=== PATIENT | female | born 1935 | race Caucasian/White ===

== ENCOUNTER 2018-08-01 16:48 | Inpatient (IN) | payer MEDICARE, OTHER ==
[~2018-08-01] VITALS: Ht 170.2 cm; Wt 65.4 kg
[~2018-08-01 16:48] MED LIST: COSOPT PF EYE1 EACH OP; LOSARTAN POTASS25 MG PO
--- OUTSIDE RECORDS SUMMARY | 2018-08-01 16:53 | XMS REPORT | CCD ---
Author Author Auto Generated Organization [facility] Address Unknown Phone Unavailable Care Team Providers Care Collar Worker Name Role Phone Hung Child Jr CP Allergies, Adverse Reactions, Alerts Substance Reaction Status NKDA Active Problem List Condition Effective Dates Status Cataract Resolved Hiatal hernia Resolved Osteoarthritis Resolved Peptic ulcer disease Resolved Medications Medication Instructions Start Date End Date Status Zofran ODT 4 mg, 1 tab, Route: PO, Drug form: 04/09/2013 04/16/2013 Discontinued TABDIS, Q8H, Dosing Weight 81.8, kg, PRN Nausea, Start date: 04/09/13 11:48:00, Duration: 30 day, Stop date: 05/09/13 11:47:00 Cipro 500 mg, 1 tab, Route: PO, Drug 04/05/2013 04/10/2013 Discontinued form: TAB, [id number], Dosing Weight 81.8, kg, Start date: 04/05/13 2:00:00, Duration: 30 day, Stop date: 05/04/13 14:00:00 Vitamin D3 1000 intl 1,000 IntlUnit, 1 tab, Route: PO, 04/09/2013 04/16/2013 Discontinued units oral tablet Drug form: TAB, Daily, Dosing Weight 81.8, kg, Start date: 04/09/13 9:00:00, Duration: 30 day, Stop date: 05/08/13 9:00:00 pantoprazole 40 mg 40 mg, 1 tab, PO, Before Dinner, 04/16/2013 Ordered oral enteric coated tab, Substitution Allowed, ECTAB tablet ferrous sulfate 325 325 mg, 1 tab, PO, BID-Meals, 04/16/2013 Ordered mg oral enteric tab, Substitution Allowed, ECTAB coated tablet enoxaparin 40 mg/0.4 40 mg, 0.4 mL, SUB-Q, [id number], 15 04/16/2013 Ordered mL subcutaneous mL, Substitution Allowed, INJ solution docusate sodium 100 100 mg, 1 cap, PO, BID, 20 cap, 04/16/2013 Ordered mg oral capsule Substitution Allowed, CAP Vitamin D3 1000 intl 1,000 IntlUnit, 1 cap, PO, Daily, 04/16/2013 05/06/2013 Ordered units oral capsule 20 cap, Substitution Allowed, CAP bisacodyl 10 mg 10 mg, 1 supp, VA, Daily, PRN, 20 04/16/2013 Ordered rectal suppository supp, Constipation, Substitution Allowed, SUPP acetaminophen 325 mg 650 mg, 2 tab, PO, Q4H, PRN, 20 04/16/2013 Ordered oral tablet tab, Pain Score 1-3, Substitution Allowed, TAB acetaminophen-hydroc 1 tab, PO, Q4H, PRN, 20 tab, Pain, 04/16/2013 Ordered odone 325 mg-5 mg Substitution Allowed, Maintenance, oral tablet TAB latanoprost 1 drp, BOTH EYES, Bedtime, 20 mL, 04/16/2013 Ordered ophthalmic 0.005% Substitute Allowed, SOLN solution dorzolamide-timolol 1 drp, BOTH EYES, BID, 20 mL, 04/16/2013 Ordered ophthalmic 2%-0.5% Substitute Allowed, SOLN solution lactulose 20 gm, 30 ml, Route: PO, Drug Form: 04/06/2013 04/16/2013 Discontinued SYRP, Dosing Weight 81.8, kg, Q8H, PRN Constipation, Start date: 04/06/13 13:17:00, Duration: 30 day, Stop date: 05/06/13 13:16:00 bisacodyl 10 mg, 1 supp, Route: VA, Drug 04/06/2013 04/16/2013 Discontinued form: SUPP, Daily, Dosing Weight 81.8, kg, PRN Constipation, Start date: 04/06/13 13:17:00, Duration: 30 day, Stop date: 05/06/13 13:16:00 acetaminophen-hydroc 1 tab, Route: PO, Drug Form: TAB, 04/04/2013 04/08/2013 Discontinued odone 325 mg-5 mg Q6H, PRN Pain, Start date: 04/04/13 oral tablet 12:50:00, Duration: 30 day, Stop date: 05/04/13 12:49:00 Protonix 40 mg, 1 tab, Route: PO, Drug form: 04/04/2013 04/16/2013 Discontinued ECTAB, Before Dinner, Start date: 04/04/13 16:30:00, Duration: 30 day, Stop date: 05/03/13 16:30:00 acetaminophen 650 mg, 2 tab, Route: PO, Drug 04/04/2013 04/16/2013 Discontinued form: TAB, Q4H, Dosing Weight 81.8, kg, PRN Pain Score 1-3, Start date: 04/04/13 11:41:00, Duration: 30 day, Stop date: 05/04/13 11:40:00 Saline Flush 0.9% 3 mL, Route: IVP, Drug Form: INJ, 04/04/2013 04/16/2013 Discontinued Dosing Weight 81.8, kg, Q8H, PRN Line Flush, Start date: 04/04/13 11:41:00, Duration: 30 day, Stop date: 05/04/13 11:40:00, Administer at least once every 8 hours Administer at least once every 8 hours [place] 5/325 oral 2 tab, Route: PO, Drug Form: TAB, 04/05/2013 04/08/2013 Discontinued tablet Dosing Weight 81.8, kg, Q6H, PRN Pain, Start date: 04/05/13 14:39:00, Duration: 30 day, Stop date: 05/05/13 14:38:00 Xalatan 1 drp, Route: BOTH EYES, Bedtime, 04/04/2013 04/16/2013 Discontinued Drug form: SOLN, Start date: 04/04/13 21:00:00, Duration: 30 day, Stop date: 05/03/13 21:00:00 ferrous sulfate 325 mg, 1 tab, Route: PO, Drug 04/04/2013 04/16/2013 Discontinued form: ECTAB, BID-Meals, Dosing Weight 81.8, kg, Start date: 04/04/13 17:00:00, Duration: 30 day, Stop date: 05/04/13 8:00:00 Lovenox 40 mg, 0.4 mL, Route: SUB-Q, Drug 04/05/2013 04/16/2013 Discontinued form: INJ, [id number], Dosing Weight 81.818, kg, Start date: 04/05/13 6:00:00, Duration: 30 day, Stop date: 05/04/13 6:00:00 Cosopt 1 drp, Route: BOTH EYES, BID, Drug 04/04/2013 04/16/2013 Discontinued form: SOLN, Start date: 04/04/13 21:00:00, Duration: 30 day, Stop date: 05/04/13 9:00:00 docusate sodium 100 100 mg, 1 cap, Route: PO, Drug 04/04/2013 04/16/2013 Discontinued mg oral capsule form: CAP, BID, Dosing Weight 81.8, kg, Start date: 04/04/13 17:00:00, Duration: 30 day, Stop date: 05/04/13 9:00:00 acetaminophen-hydroc 1 tab, Route: PO, Drug Form: TAB, 04/08/2013 04/16/2013 Discontinued odone 325 mg-5 mg Q4H, PRN Pain, Start date: 04/08/13 oral tablet 12:26:00, Duration: 30 day, Stop date: 05/08/13 12:25:00 Cipro 400 mg, 200 mL, Route: IVPB, Drug 04/04/2013 04/04/2013 Discontinued form: INJ, [id number], Dosing Weight 81.8, kg, Start date: 04/04/13 13:00:00, Duration: 30 day, Stop date: 05/04/13 1:00:00 [place] 5/325 oral 2 tab, Route: PO, Drug Form: TAB, 04/08/2013 04/14/2013 Discontinued tablet Dosing Weight 81.8, kg, Q4H, PRN Pain, Start date: 04/08/13 12:26:00, Duration: 30 day, Stop date: 05/08/13 12:25:00 Vital Signs Most recent to oldest [Reference Range]: 1 2 3 Height 172.7 cm (04/04/2013 12:28:00) 172.7 cm (04/04/2013 11:41:00) Temperature Oral [96.4-99.1 DegF] 97.5 DegF (04/16/2013 09:10:00) 98 DegF (04/15/2013 20:16:00) 97.9 DegF (04/15/2013 16:08:00) Systolic Blood Pressure [90-140 mmHg] 162 mmHg *HI* (04/16/2013 09:10:00) 129 mmHg (04/15/2013 20:16:00) 129 mmHg (04/15/2013 16:08:00) Diastolic Blood Pressure [60-90 mmHg] 88 mmHg (04/16/2013 09:10:00) 81 mmHg (04/15/2013 20:16:00) 76 mmHg (04/15/2013 16:08:00) Respiratory Rate [14-20 BRMIN] 16 BRMIN (04/16/2013 11:07:00) 20 BRMIN (04/15/2013 20:16:00) 18 BRMIN (04/15/2013 16:08:00) Peripheral Pulse Rate [60-100 bpm] 97 bpm (04/16/2013 09:10:00) 85 bpm (04/15/2013 20:16:00) 90 bpm (04/15/2013 16:08:00) Weight 81.8 kg (04/04/2013 12:28:00) 81.8 kg (04/04/2013 11:41:00) Results CHEMISTRY Most recent to oldest [Reference Range]: 1 2 3 Sodium Lvl [135-145 mEq/L] 144 mEq/L (04/16/2013 04:59:00) 142 mEq/L (04/11/2013 06:55:00) 143 mEq/L (04/05/2013 03:00:00) Potassium Lvl [3.5-5.1 mEq/L] 4.2 mEq/L (04/16/2013 04:59:00) 3.8 mEq/L (04/11/2013 06:55:00) 3.7 mEq/L (04/05/2013 03:00:00) Chloride Lvl [95-109 mEq/L] 109 mEq/L (04/16/2013 04:59:00) 106 mEq/L (04/11/2013 06:55:00) 107 mEq/L (04/05/2013 03:00:00) CO2 [24-32 mEq/L] 24 mEq/L (04/16/2013 04:59:00) 23 mEq/L *LOW* (04/11/2013 06:55:00) 25 mEq/L (04/05/2013 03:00:00) AGAP [10.0-20.0 mEq/L] 15.2 mEq/L (04/16/2013 04:59:00) 16.8 mEq/L (04/11/2013 06:55:00) 14.7 mEq/L (04/05/2013 03:00:00) Creatinine Lvl [0.5-1.4 mg/dL] 0.8 mg/dL (04/16/2013 04:59:00) 0.8 mg/dL (04/11/2013 06:55:00) 0.8 mg/dL (04/05/2013 03:00:00) eGFR 71 mL/min/1.73m2 1 *NA* (04/16/2013 04:59:00) 71 mL/min/1.73m2 2 *NA* (04/11/2013 06:55:00) 71 mL/min/1.73m2 3 *NA* (04/05/2013 03:00:00) BUN [7-22 mg/dL] 14 mg/dL (04/16/2013 04:59:00) 16 mg/dL (04/11/2013 06:55:00) 16 mg/dL (04/05/2013 03:00:00) B/C Ratio [6-25] 20 (04/05/2013 03:00:00) Glucose Lvl [70-99 mg/dL] 100 mg/dL 4 *HI* (04/16/2013 04:59:00) 100 mg/dL 5 *HI* (04/11/2013 06:55:00) 105 mg/dL 6 *HI* (04/05/2013 03:00:00) Total Protein [6.4-8.4 g/dL] 5.7 g/dL *LOW* (04/05/2013 03:00:00) Albumin Lvl [3.5-5.0 g/dL] 2.6 g/dL *LOW* (04/05/2013 03:00:00) Globulin [2.0-4.0 g/dL] 3.1 g/dL (04/05/2013 03:00:00) A/G Ratio [0.7-1.6] 0.8 (04/05/2013 03:00:00) Calcium Lvl [8.5-10.5 mg/dL] 8.2 mg/dL *LOW* (04/16/2013 04:59:00) 8.0 mg/dL *LOW* (04/11/2013 06:55:00) 8.2 mg/dL *LOW* (04/05/2013 03:00:00) Phosphorus [2.5-4.5 mg/dL] 2.9 mg/dL (04/05/2013 03:00:00) Magnesium Lvl [1.8-2.4 mg/dL] 2.0 mg/dL (04/05/2013 03:00:00) ALT [0-65 unit/L] 21 unit/L (04/05/2013 03:00:00) AST [0-37 unit/L] 29 unit/L (04/05/2013 03:00:00) Alk Phos [39-136 unit/L] 82 unit/L (04/05/2013 03:00:00) Bili Total [0.2-1.3 mg/dL] 0.6 mg/dL (04/05/2013 03:00:00) Vitamin D, 25-OH, Total [30-100 ng/mL] 27 ng/mL 7 *LOW* (04/05/2013 03:00:00) Ca Ion WB [1.05-1.25 mMol/L] 1.07 mMol/L (04/05/2013 03:00:00) Ca Norm WB [1.05-1.25 mMol/L] 1.08 mMol/L (04/05/2013 03:00:00) 1Result Comment: The eGFR is calculated using the CKD-EPI formula. In most young, healthy individuals the eGFR will be >90 mL/min/1.73m2. The eGFR declines with age. An eGFR of 60-89 may be normal in some populations, particularly the elderly, for whom the CKD-EPI formula has not been extensively validated. Use of the eGFR is not recommended in the following populations: Individuals with unstable creatinine concentrations, including patients and those with serious co-morbid conditions. Patients with extremes in muscle mass or diet. The data above are obtained from the National Kidney Disease Education Program ( NKDEP) which additionally recommends that when the eGFR is used in patients with extremes of body mass index for purposes of drug dosing, the eGFR should be mul tiplied by the estimated BMI. 2Result Comment: The eGFR is calculated using the CKD-EPI formula. In most young, healthy individuals the eGFR will be >90 mL/min/1.73m2. The eGFR declines with age. An eGFR of 60-89 may be normal in some populations, particularly the elderly, for whom the CKD-EPI formula has not been extensively validated. Use of the eGFR is not recommended in the following populations: Individuals with unstable creatinine concentrations, including patients and those with serious co-morbid conditions. Patients with extremes in muscle mass or diet. The data above are obtained from the National Kidney Disease Education Program ( NKDEP) which additionally recommends that when the eGFR is used in patients with extremes of body mass index for purposes of drug dosing, the eGFR should be mul tiplied by the estimated BMI. 3Result Comment: The eGFR is calculated using the CKD-EPI formula. In most young, healthy individuals the eGFR will be >90 mL/min/1.73m2. The eGFR declines with age. An eGFR of 60-89 may be normal in some populations, particularly the elderly, for whom the CKD-EPI formula has not been extensively validated. Use of the eGFR is not recommended in the following populations: Individuals with unstable creatinine concentrations, including patients and those with serious co-morbid conditions. Patients with extremes in muscle mass or diet. The data above are obtained from the National Kidney Disease Education Program ( NKDEP) which additionally recommends that when the eGFR is used in patients with extremes of body mass index for purposes of drug dosing, the eGFR should be mul tiplied by the estimated BMI. 4Interpretive Data: Adult reference range values reflect the clinical guidelines of the [place] [employer]. 5Interpretive Data: Adult reference range values reflect the clinical guidelines of the [place] [employer]. 6Interpretive Data: Adult reference range values reflect the clinical guidelines of the [place] [employer]. 7Interpretive Data: Reference range is based on recommendations in the Endocrine Society Clinical Practice Guideline (J Clin Endocrinol Metab 2011;96:7959-1190) HEMATOLOGY Most recent to oldest [Reference Range]: 1 2 3 WBC [3.7-10.4 K/CMM] 5.3 K/CMM (04/16/2013 04:59:00) 7.2 K/CMM (04/11/2013 06:55:00) 6.4 K/CMM (04/05/2013 03:00:00) RBC [4.20-5.40 M/CMM] 3.29 M/CMM *LOW* (04/16/2013 04:59:00) 3.22 M/CMM *LOW* (04/11/2013 06:55:00) 3.20 M/CMM *LOW* (04/05/2013 03:00:00) Hgb [12.0-16.0 g/dL] 9.5 g/dL *LOW* (04/16/2013 04:59:00) 9.5 g/dL *LOW* (04/11/2013 06:55:00) 9.5 g/dL *LOW* (04/05/2013 03:00:00) Hct [36.0-48.0 %] 29.7 % *LOW* (04/16/2013 04:59:00) 29.1 % *LOW* (04/11/2013 06:55:00) 28.7 % *LOW* (04/05/2013 03:00:00) MCV [81.0-99.0 fL] 90.3 fL (04/16/2013 04:59:00) 90.6 fL (04/11/2013 06:55:00) 89.9 fL (04/05/2013 03:00:00) MCH [27.0-31.0 pg] 28.9 pg (04/16/2013 04:59:00) 29.6 pg (04/11/2013 06:55:00) 29.6 pg (04/05/2013 03:00:00) MCHC [32.0-36.0 g/dL] 32.0 g/dL (04/16/2013 04:59:00) 32.6 g/dL (04/11/2013 06:55:00) 32.9 g/dL (04/05/2013 03:00:00) RDW [11.5-14.5 %] 17.1 % *HI* (04/16/2013 04:59:00) 15.3 % *HI* (04/11/2013 06:55:00) 14.6 % *HI* (04/05/2013 03:00:00) Platelet [133-450 K/CMM] 483 K/CMM *HI* (04/16/2013 04:59:00) 407 K/CMM (04/11/2013 06:55:00) 246 K/CMM (04/05/2013 03:00:00) MPV [7.4-10.4 fL] 7.3 fL *LOW* (04/16/2013 04:59:00) 7.5 fL (04/11/2013 06:55:00) 8.2 fL (04/05/2013 03:00:00) Segs [45.0-75.0 %] 61.0 % (04/16/2013 04:59:00) 73.4 % (04/11/2013 06:55:00) 61.2 % (04/05/2013 03:00:00) Lymphocytes [20.0-40.0 %] 22.5 % (04/16/2013 04:59:00) 12.4 % *LOW* (04/11/2013 06:55:00) 21.3 % (04/05/2013 03:00:00) Monocytes [2.0-12.0 %] 13.0 % *HI* (04/16/2013 04:59:00) 12.0 % (04/11/2013 06:55:00) 14.8 % *HI* (04/05/2013 03:00:00) Eosinophils [0.0-4.0 %] 2.4 % (04/16/2013 04:59:00) 1.7 % (04/11/2013 06:55:00) 2.1 % (04/05/2013 03:00:00) Basophils [0.0-1.0 %] 1.1 % *HI* (04/16/2013 04:59:00) 0.5 % (04/11/2013 06:55:00) 0.6 % (04/05/2013 03:00:00) Segs-Bands # [1.5-8.1 K/CMM] 3.2 K/CMM (04/16/2013 04:59:00) 5.3 K/CMM (04/11/2013 06:55:00) 3.9 K/CMM (04/05/2013 03:00:00) Lymphocytes # [1.0-5.5 K/CMM] 1.2 K/CMM (04/16/2013 04:59:00) 0.9 K/CMM *LOW* (04/11/2013 06:55:00) 1.4 K/CMM (04/05/2013 03:00:00) Monocytes # [0.0-0.8 K/CMM] 0.7 K/CMM (04/16/2013 04:59:00) 0.9 K/CMM *HI* (04/11/2013 06:55:00) 0.9 K/CMM *HI* (04/05/2013 03:00:00) Eosinophils # [0.0-0.5 K/CMM] 0.1 K/CMM (04/16/2013 04:59:00) 0.1 K/CMM (04/11/2013 06:55:00) 0.1 K/CMM (04/05/2013 03:00:00) Basophils # [0.0-0.2 K/CMM] 0.1 K/CMM (04/16/2013 04:59:00) 0.0 K/CMM (04/11/2013 06:55:00) 0.0 K/CMM (04/05/2013 03:00:00) PT [12.0-14.7 seconds] 14.1 seconds (04/05/2013 03:00:00) INR [0.85-1.17] 1.07 8 (04/05/2013 03:00:00) PTT [22.9-35.8 seconds] 29.0 seconds 9 (04/05/2013 03:00:00) 8Interpretive Data: RECOMMENDED RANGES FOR PROTIME INR: 2.0-3.0 for most medical and surgical thromboembolic states. 2.5-3.5 for artificial heart valves and recurrent embolism. INR SHOULD BE USED ONLY FOR PATIENTS ON STABLE ANTICOAGULANT THERAPY. 9Interpretive Data: Heparin Therapeutic Range: 57 - 92 Seconds IMMUNOLOGY Most recent to oldest [Reference Range]: 1 2 3 Prealbumin [18.0-45.0 mg/dL] 8.9 mg/dL *LOW* (04/05/2013 03:00:00) CRP, High Sensitivity 128.0 mg/L 10 *NA* (04/05/2013 03:00:00) 10Interpretive Data: Low Risk: <1.0 mg/L Average Risk: 1.0 - 3.0 mg/L High Risk: >3.0 mg/L Inflammation: >10.0 mg/L
--- OUTSIDE RECORDS SUMMARY | 2018-08-01 16:53 | XMS REPORT | Continuity of Care Document ---
Author Author [facility] Interface Address Unknown Phone Unavailable Problems Problem Status Onset Date Classification Date Reported Comments Source BILATERIAL CELLULITIS OF LOWER LEG Active 06/08/2018 [facility] ABD PAIN Active 06/08/2018 [facility] UNK Active 11/15/2016 [facility] Discharge Diagnosis: Closed Colles' fracture 11/13/2016 11/16/2016 [facility] Discharge Diagnosis: Accidental fall 11/13/2016 11/16/2016 [facility] FALL- LEFT WRIST PAIN Active 11/13/2016 [facility] PE Active 04/29/2013 [facility] SYNCOPE Active 04/29/2013 [facility] FELL/LEFT KNEE INJURY Active 03/31/2013 [facility] LEFT HUMERUS AND HIP FX Active 03/31/2013 [facility] Hiatal hernia Resolved Problem 11/25/2016 [facility] Hypertension Resolved Problem 11/25/2016 [facility] MRSA<sup>1</sup> Active Problem 11/16/2016 Problem added by Discern Expert. 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 [facility] Cataract Resolved Problem 05/07/2013 [facility] Hiatal hernia Resolved Problem 05/07/2013 [facility] Osteoarthritis Resolved Problem 05/07/2013 [facility] Peptic ulcer disease Resolved Problem 05/07/2013 [facility] MRSA<sup>1</sup> Active Problem 05/07/2013 1Problem added by Discern Expert. [facility] FX HUMERUS NOS-CLOSED Active [facility] PULM EMBOL/INFARCT NEC Active [facility] PAIN IN LEFT WRIST Active [facility] COLLES' FRACTURE OF LEFT RADIUS, INIT FO Active [facility] CONTUSION OF LEFT WRIST, INITIAL ENCOUNT Active [facility] CELLULITIS OF LEFT LOWER LIMB Active [facility] Medications Medication Details Route Status Patient Instructions Ordering Provider Order Date Source Ondansetron 4 mg, Route: IVP, ONCE, Dosing Weight 68.182, kg, PRN Nausea & Vomiting, Start date: 11/22/16 8:37:00 CDT Inactive 11/22/2016 [facility] Promethazine 6.25 mg, Route: IVPB, ONCE, Dosing Weight 68.182, kg, PRN Nausea & Vomiting, Start date: 11/22/16 8:37:00 CDT Inactive 11/22/2016 [facility] Albuterol 0.83 MG/ML Inhalant Solution 2.49 mg, Route: NEB, Q20Min, Dosing Weight 68.182, kg, PRN Wheezing, Priority: STAT, Start date: 11/22/16 8:37:00 CDT, Duration: 30 day, Stop date: 12/22/16 8:36:00 CDT Inactive 11/22/2016 [facility] Diphenhydramine 12.5 mg, Route: IVP, Drug form: INJ, Q6H, Dosing Weight 68.182, kg, PRN Itching, Start date: 11/22/16 8:37:00 CDT, Duration: 30 day, Stop date: 12/22/16 8:36:00 CDT Inactive 11/22/2016 [facility] Naloxone 0.4 mg, Route: IVP, Q2MIN, Dosing Weight 68.182, kg, PRN Narcotic Reversal, Start date: 11/22/16 8:37:00 CDT, Duration: 8 doses or times, Stop date: Limited # of times Inactive 11/22/2016 [facility] Meperidine 12.5 mg, Route: IVP, Q30Min, Dosing Weight 68.182, kg, PRN Other -See Comment, For shivering, Start date: 11/22/16 8:37:00 CDT, Duration: 2 doses or times, Stop date: Limited # of times Inactive 11/22/2016 [facility] Flumazenil 0.2 mg, Route: IVP, PRN, Dosing Weight 68.182, kg, PRN Benzodiazepine Reversal, Initial dose, Start date: 11/22/16 8:37:00 CDT, Duration: 30 day, Stop date: 12/22/16 8:36:00 CDT Inactive 11/22/2016 [facility] Hydromorphone 0.5 mg, Route: IVP, Q5Min, Dosing Weight 68.182, kg, PRN Pain Score 7-10, Start date: 11/22/16 8:37:00 CDT, Duration: 4 doses or times, Stop date: Limited # of times Inactive 11/22/2016 [facility] Calcium Chloride 0.0014 MEQ/ML / Potassium Chloride 0.004 MEQ/ML / Sodium Chloride 0.103 MEQ/ML / Sodium Lactate 0.028 MEQ/ML Injectable Solution 1,000 mL, Rate: 125 ml/hr, Infuse over: 8 hr, Route: IV, Dosing Weight 68.182 kg, Total Volume: 1,000, Start date: 11/22/16 8:37:00 CDT, Duration: 30 day, Stop date: 12/22/16 8:36:00 CDT Inactive 11/22/2016 [facility] Hydralazine 10 mg, Route: IVP, Q20Min, Dosing Weight 68.182, kg, PRN Elevated BP, Start date: 11/22/16 8:37:00 CDT, Duration: 2 doses or times, Stop date: Limited # of times Inactive 11/22/2016 [facility] esmolol 10 mg, Route: IVP, Q5Min, Dosing Weight 68.182, kg, PRN Other -See Comment, Start date: 11/22/16 8:37:00 CDT, Duration: 5 doses or times, Stop date: Limited # of times Inactive 11/22/2016 [facility] Labetalol 10 mg, Route: IVP, Q5Min, Dosing Weight 68.182, kg, PRN Elevated BP, Start date: 11/22/16 8:37:00 CDT, Duration: 5 doses or times, Stop date: Limited # of times Inactive 11/22/2016 [facility] Acetaminophen 1,000 mg, Route: PO, Drug form: TAB, ONCE, Dosing Weight 68.182, kg, PRN Pain Score 1-3, Start date: 11/22/16 8:37:00 CDT, Duration: 1 doses or times, Stop date: Limited # of times Inactive 11/22/2016 [facility] Oxycodone 5 mg, Route: PO, Drug form: TAB, Q4H, Dosing Weight 68.182, kg, PRN Pain Score 4-6, Start date: 11/22/16 8:37:00 CDT, Duration: 30 day, Stop date: 12/22/16 8:36:00 CDT Inactive 11/22/2016 [facility] Tramadol 50 mg, 1 tab, Route: PO, Drug form: TAB, ONCE, Dosing Weight 68.182, kg, Start date: 11/22/16 8:22:00 CDT, Stop date: 11/22/16 8:22:00 CDT, ..Notes: Not to exceed 400mg/day. (Same As: Ultram) Inactive 11/22/2016 [facility] Acetaminophen 650 mg, Route: PO, Drug form: TAB, Q4H, Dosing Weight 68.182, kg, PRN Pain 1-3/Temp > 100.4 F, Start date: 11/22/16 8:19:00 CDT, Duration: 30 day, Stop date: 12/22/16 8:18:00 CDT Inactive 11/22/2016 [facility] Acetaminophen 325 MG / Hydrocodone Bitartrate 10 MG Oral Tablet 1 tab, Route: PO, Dosing Weight 68.182, kg, Q4H, PRN Pain Score 4-6, Start date: 11/22/16 8:19:00 CDT, Duration: 30 day, Stop date: 12/22/16 8:18:00 CDT Inactive 11/22/2016 [facility] Hydromorphone 0.5 mg, Route: IVP, Q3H, Dosing Weight 68.182, kg, PRN Pain Score 4-6, Start date: 11/22/16 8:19:00 CDT, Duration: 30 day, Stop date: 12/22/16 8:18:00 CDT Inactive 11/22/2016 [facility] Tramadol 50 mg, Route: PO, Drug form: TAB, Q6H, Dosing Weight 68.182, kg, PRN Pain Score 1-3, Start date: 11/22/16 8:19:00 CDT, Duration: 30 day, Stop date: 12/22/16 8:18:00 CDT Inactive 11/22/2016 [facility] fentaNYL (ANES) Route: IV, Drug form: INJ, ONCE, Stop date: 11/22/16 8:19:00 CDT Inactive 11/22/2016 [facility] Albuterol 0.833 MG/ML / Ipratropium [place] 0.167 MG/ML Inhalant Solution 3 mL, Route: NEB, Dosing Weight 68.182, kg, ONCE, STAT, Start date: 11/22/16 8:15:00 CDT, Stop date: 11/22/16 8:15:00 CDT Inactive 11/22/2016 [facility] Calcium Chloride 0.0014 MEQ/ML / Potassium Chloride 0.004 MEQ/ML / Sodium Chloride 0.103 MEQ/ML / Sodium Lactate 0.028 MEQ/ML Injectable Solution 1,000 mL, Rate: 25 ml/hr, Infuse over: 40 hr, Route: IV, Dosing Weight 68.182 kg, Total Volume: 1,000, Start date: 11/22/16 8:15:00 CDT, Duration: 30 day, Stop date: 12/22/16 8:14:00 CDT Inactive 11/22/2016 [facility] acetaminophen (ANES) Route: IV, Drug form: INJ, ONCE, Stop date: 11/22/16 8:12:00 CDT Inactive 11/22/2016 [facility] ondansetron (ANES) Route: IV, Drug form: INJ, ONCE, Stop date: 11/22/16 8:07:00 CDT Inactive 11/22/2016 [facility] ceFAZolin (ANES) Route: IV, Drug form: INJ, ONCE, Stop date: 11/22/16 8:07:00 CDT Inactive 11/22/2016 [facility] lidocaine (ANES) Route: IV, Drug form: INJ, ONCE, Stop date: 11/22/16 8:07:00 CDT Inactive 11/22/2016 [facility] propofol (ANES) Route: IV, Drug form: INJ, ONCE, Stop date: 11/22/16 8:07:00 CDT Inactive 11/22/2016 [facility] hydromorphone (ANES) Route: IV, Drug form: INJ, ONCE, Stop date: 11/22/16 8:02:00 CDT Inactive 11/22/2016 [facility] famotidine (ANES) Route: IV, Drug form: INJ, ONCE, Stop date: 11/22/16 8:02:00 CDT Inactive 11/22/2016 [facility] LR 1000 mL INJ (ANES) Route: IV, Total Volume: 1,000, Start date: 11/22/16 7:17:00 CDT, Stop date: 11/22/16 8:17:00 CDT Inactive 11/22/2016 [facility] Cephalexin 500 MG Oral Capsule [Keflex] 500 mg=1 cap, PO, QID, X 10 day, # 40 cap, 0 Refill(s) Active 11/22/2016 [facility] Acetaminophen 325 MG / Hydrocodone Bitartrate 5 MG Oral Tablet 1 tab, PO, Daily, PRN PAIN, 0 Refill(s) Active 11/19/2016 [facility] dorzolamide 20 MG/ML Ophthalmic Solution 1 drp, BOTH EYES, TID, # 10 mL, 0 Refill(s) Active 11/19/2016 [facility] bimatoprost 0.1 MG/ML Ophthalmic Solution [Lumigan] 1 drp, BOTH EYES, Bedtime, # 5 mL, 4 Refill(s) Active 11/19/2016 [facility] Hydrochlorothiazide 12.5 MG / Losartan Potassium 50 MG Oral Tablet 1 tab, PO, Daily, # 30 tab, 0 Refill(s) Active 11/19/2016 [facility] bimatoprost 0.3 MG/ML Ophthalmic Solution [Lumigan] 1 drp, OPTH, QPM, # 3 ml, 0 Refill(s) Inactive 11/19/2016 [facility] dorzolamide 20 MG/ML Ophthalmic Solution 1 drp, BOTH EYES, TID, # 10 mL, 0 Refill(s) Inactive 11/19/2016 [facility] Unknown Home Medication PO, Daily, Refill(s) 0 Inactive 11/19/2016 [facility] ferrous sulfate PO, 0 Refill(s) Active 11/19/2016 [facility] Osteo Bi-Flex 0 Refill(s) Active 11/19/2016 [facility] multivitamin Daily, 0 Refill(s) Active 11/19/2016 [facility] aspirin 81 mg tablet, enteric coated 81 mg=1 tab, PO, Daily, # 90 tab, 3 Refill(s) Active 11/19/2016 [facility] tramadol hydrochloride 50 MG Oral Tablet [Ultram] 50 mg=1 tab, PO, Q4H, PRN pain, X 3 day, # 20 tab, 0 Refill(s) Active 11/13/2016 [facility] Morphine 4 mg, Route: IVP, ONCE, Dosing Weight 63.636, kg, Priority: STAT, Start date: 11/13/16 17:50:00 CDT, Stop date: 11/13/16 17:50:00 CDT Inactive 11/13/2016 [facility] Ondansetron 4 mg, 2 mL, Route: IVP, Drug form: INJ, ONCE, Dosing Weight 63.636, kg, Priority: STAT, Start date: 11/13/16 14:49:00 CDT, Stop date: 11/13/16 14:49:00 CDTNotes: (Same as: Zofran) MEDICATION WASTE Product Size: 4 mg Product Wasted: ___ mg Inactive 11/13/2016 [facility] Morphine 2 mg, 1 mL, Route: IVP, Drug form: INJ, ONCE, Dosing Weight 63.636, kg, Priority: STAT, Start date: 11/13/16 14:49:00 CDT, Stop date: 11/13/16 14:49:00 CDTNotes: (Same as:MORPhine Sulfate) Inactive 11/13/2016 [facility] Saline Flush 0.9% 10 mL, Route: IVP, Drug Form: INJ, Dosing Weight 63.636, kg, PRN, PRN Line Flush, Start date: 11/13/16 14:49:00 CDT, Duration: 30 day, Stop date: 12/13/16 14:48:00 CDTNotes: (Same as: BD Posiflush) Inactive 11/13/2016 [facility] warfarin 5 mg oral tablet 5 mg, 1 tab, PO, Q5PM, 30 tab, Substitution Allowed, TAB PO Active Fang 05/05/2013 [facility] Zofran 4 mg, 2 mL, Route: IVP, Drug form: INJ, Q4H, PRN Nausea & Vomiting, Start date: 05/03/13 10:55:00, Duration: 30 day, Stop date: 06/02/13 10:54:00 IVP No Longer Active Michael 05/03/2013 [facility] nitroglycerin 0.4 mg sublingual tablet 0.4 mg, 1 tab, Route: SL, Drug form: TAB, Q5Min, PRN Chest Pain, Start date: 05/02/13 5:36:00, Duration: 30 day, Stop date: 06/01/13 5:35:00 SL No Longer Active [facility] 05/02/2013 [facility] atropine 0.5 mg, 5 mL, Route: IVP, Drug form: INJ, PRN, PRN Bradycardia, Start date: 05/02/13 5:36:00, Duration: 30 day, Stop date: 06/01/13 5:35:00 IVP No Longer Active [facility] 05/02/2013 [facility] latanoprost ophthalmic 0.005% solution 1 drp, Route: BOTH EYES, Bedtime, Drug form: SOLN, Start date: 04/30/13 21:00:00, Duration: 30 day, Stop date: 05/29/13 21:00:00 BOTH EYES No Longer Active [facility] 05/01/2013 [facility] Coumadin 5 mg, 1 tab, Route: PO, Drug form: TAB, Q5PM, Dosing Weight 72.727, kg, Priority: Routine, Start date: 04/30/13 17:00:00, Duration: 7 day, Stop date: 05/06/13 17:00:00 PO No Longer Active [facility] 04/30/2013 [facility] potassium chloride 20 mEq, 100 mL, Route: IVPB, Drug form: INJ, Q2H, Dosing Weight 72.727, kg, PRN Abnormal Lab Result, Total dose=60 mEq, Start date: 04/30/13 16:41:00, Duration: 30 day, Stop date: 05/30/13 16:00:00, For K 2.5- 2.9 mEq/LFor K 2.5- 2.9 mEq/L IVPB No Longer Active [facility] 04/30/2013 [facility] MiraLax 17 gm, 1 pkt, Route: PO, Drug form: PWDR, Daily, Dosing Weight 72.727, kg, Start date: 04/30/13 9:00:00, Duration: 30 day, Stop date: 05/29/13 9:00:00 PO No Longer Active [facility] 04/30/2013 [facility] dorzolamide-timolol ophthalmic 2%-0.5% solution 1 drp, Route: BOTH EYES, BID, Drug form: SOLN, Start date: 04/30/13 9:00:00, Duration: 30 day, Stop date: 05/29/13 17:00:00 BOTH EYES No Longer Active [facility] 04/30/2013 [facility] docusate sodium 100 mg oral capsule 100 mg, 1 cap, Route: PO, Drug form: CAP, BID, Dosing Weight 72.727, kg, Start date: 04/30/13 9:00:00, Duration: 30 day, Stop date: 05/29/13 17:00:00 PO No Longer Active [facility] 04/30/2013 [facility] Vitamin D3 1000 intl units oral tablet 1,000 IntlUnit, 1 tab, Route: PO, Drug form: TAB, Daily, Dosing Weight 72.727, kg, Start date: 04/30/13 9:00:00, Duration: 30 day, Stop date: 05/29/13 9:00:00 PO No Longer Active [facility] 04/30/2013 [facility] potassium chloride 20 mEq, 100 mL, Route: IVPB, Drug form: INJ, Q2H, Dosing Weight 72.727, kg, PRN Abnormal Lab Result, Total dose=60 mEq, Start date: 04/30/13 8:57:00, Duration: 3 doses or times, Stop date: Limited # of times, For K 2.5- 2.9 mEq/LFor K 2.5- 2.9 mEq/L IVPB No Longer Active [facility] 04/30/2013 [facility] NS 1,000 mL 1,000 mL, Rate: 50 ml/hr, Infuse over: 20 hr, Route: IV, Dosing Weight 72.727 kg, Total Volume: 1,000, Start date: 04/30/13 8:53:00, Duration: 30 day, Stop date: 05/30/13 8:52:00 IV No Longer Active [facility] 04/30/2013 [facility] ferrous sulfate 325 mg, 1 tab, Route: PO, Drug form: ECTAB, BID-Meals, Dosing Weight 72.727, kg, Start date: 04/30/13 8:00:00, Duration: 30 day, Stop date: 05/29/13 17:00:00 PO No Longer Active [facility] 04/30/2013 [facility] Protonix 40 mg, 1 tab, Route: PO, Drug form: ECTAB, Before Breakfast, Dosing Weight 72.727, kg, Start date: 04/30/13 7:30:00, Duration: 30 day, Stop date: 05/29/13 7:30:00 PO No Longer Active [facility] 04/30/2013 [facility] bisacodyl 10 mg, 1 supp, Route: OH, Drug form: SUPP, Daily, Dosing Weight 72.727, kg, PRN as needed for constipation, Start date: 04/30/13 3:17:00, Duration: 30 day, Stop date: 05/30/13 3:16:00 OH No Longer Active [facility] 04/30/2013 [facility] acetaminophen-hydrocodone 325 mg-5 mg oral tablet 1 tab, Route: PO, Drug Form: TAB, Q4H, PRN Pain Score 1-3, Start date: 04/29/13 20:49:00, Duration: 30 day, Stop date: 05/29/13 20:48:00 PO No Longer Active angel 04/30/2013 [facility] enoxaparin 70 mg, Route: SUB-Q, [id number], Dosing Weight 72.727, kg, Start date: 04/29/13 20:00:00, Duration: 30 day, Stop date: 05/29/13 8:00:00 SUB-Q No Longer Active Cinthia 04/30/2013 [facility] Lovenox 70 mg, 0.7 mL, Route: SUB-Q, Drug form: INJ, Q12H, Dosing Weight 72.727, kg, Priority: STAT, Start date: 04/29/13 14:58:00, Duration: 30 day, Stop date: 05/29/13 14:00:00 SUB-Q No Longer Active Fany 04/29/2013 [facility] DuoNeb inhalation solution 3 ml, Route: INHALATION, Drug Form: SOLN, Dosing Weight 72.727, kg, PRN, PRN Respiratory Protocol, Start date: 04/29/13 14:18:00, Duration: 30 day, Stop date: 05/29/13 14:17:00 INHALATION No Longer Active Laura 04/29/2013 [facility] Zofran 4 mg, Route: IVP, Drug form: INJ, ONCE, Dosing Weight 72.727, kg, Priority: STAT, Start date: 04/29/13 13:28:00, Stop date: 04/29/13 13:28:00 IVP No Longer Active Laura 04/29/2013 [facility] morphine Sulfate 2 mg, Route: IVP, Drug form: INJ, ONCE, Dosing Weight 72.727, kg, Priority: STAT, Start date: 04/29/13 13:28:00, Stop date: 04/29/13 13:28:00 IVP No Longer Active [facility] 04/29/2013 [facility] NS 1,000 mL 1,000 mL, Rate: 75 ml/hr, Infuse over: 13.3 hr, Route: IV, Dosing Weight 72.727 kg, Total Volume: 1,000, Start date: 04/29/13 13:12:00, Duration: 30 day, Stop date: 05/29/13 13:11:00 IV No Longer Active Fany 04/29/2013 [facility] NS (Bolus) IV 500 mL 500 mL, Rate: 500 ml/hr, Infuse over: 1 hr, Route: IV, Dosing Weight 72.727 kg, Total Volume: 500, Priority: STAT, Start date: 04/29/13 13:12:00, Duration: 1 doses or times, Stop date: 04/29/13 14:11:00, Bolus DoseBolus Dose IV No Longer Active [facility] 04/29/2013 [facility] aspirin 81 mg, Route: CHEW, Drug form: CHEWTAB, ONCE, Dosing Weight 72.727, kg, Priority: STAT, Start date: 04/29/13 13:05:00, Stop date: 04/29/13 13:05:00 CHEW No Longer Active [facility] 04/29/2013 [facility] Lovenox 72.727 mg, Route: SUB-Q, Drug form: INJ, ONCE, Dosing Weight 72.727, kg, Priority: STAT, Start date: 04/29/13 13:00:00, Stop date: 04/29/13 13:00:00 SUB-Q No Longer Active [facility] 04/29/2013 [facility] Saline Flush 0.9% 5 mL, Route: IVP, Drug Form: INJ, Dosing Weight 72.727, kg, PRN, PRN Line Flush, Start date: 04/29/13 11:12:00, Duration: 30 day, Stop date: 05/29/13 11:11:00 IVP No Longer Active [facility] 04/29/2013 [facility] Sodium Chloride 0.9% (Bolus) IV 500 mL 500 mL, Rate: 500 ml/hr, Infuse over: 1 hr, Route: IV, Dosing Weight 72.727 kg, Total Volume: 500, Priority: STAT, Start date: 04/29/13 11:12:00, Duration: 1 doses or times, Stop date: 04/29/13 12:11:00 IV No Longer Active [facility] 04/29/2013 [facility] pantoprazole 40 mg oral enteric coated tablet 40 mg, 1 tab, PO, Before Dinner, 20 tab, Substitution Allowed, ECTAB PO Active [facility] 04/16/2013 [facility] ferrous sulfate 325 mg oral enteric coated tablet 325 mg, 1 tab, PO, BID-Meals, 20 tab, Substitution Allowed, ECTAB PO Active [facility] 04/16/2013 [facility] enoxaparin 40 mg/0.4 mL subcutaneous solution 40 mg, 0.4 mL, SUB-Q, [id number], 15 mL, Substitution Allowed, INJ SUB- Q Active [facility] 04/16/2013 [facility] docusate sodium 100 mg oral capsule 100 mg, 1 cap, PO, BID, 20 cap, Substitution Allowed, CAP PO Active [facility] 04/16/2013 [facility] Vitamin D3 1000 intl units oral capsule 1,000 IntlUnit, 1 cap, PO, Daily, 20 cap, Substitution Allowed, CAP PO Active [facility] 04/16/2013 [facility] bisacodyl 10 mg rectal suppository 10 mg, 1 supp, OH, Daily, PRN, 20 supp, Constipation, Substitution Allowed, SUPP OH Active [facility] 04/16/2013 [facility] acetaminophen 325 mg oral tablet 650 mg, 2 tab, PO, Q4H, PRN, 20 tab, Pain Score 1-3, Substitution Allowed, TAB PO Active [facility] 04/16/2013 [facility] acetaminophen-hydrocodone 325 mg-5 mg oral tablet 1 tab, PO, Q4H, PRN, 20 tab, Pain, Substitution Allowed, Maintenance, TAB PO Active [facility] 04/16/2013 [facility] latanoprost ophthalmic 0.005% solution 1 drp, BOTH EYES, Bedtime, 20 mL, Substitute Allowed, SOLN BOTH EYES Active [facility] 04/16/2013 [facility] dorzolamide-timolol ophthalmic 2%-0.5% solution 1 drp, BOTH EYES, BID, 20 mL, Substitute Allowed, SOLN BOTH EYES Active Brendel 04/16/2013 [facility] Zofran ODT 4 mg, 1 tab, Route: PO, Drug form: TABDIS, Q8H, Dosing Weight 81.8, kg, PRN Nausea, Start date: 04/09/13 11:48:00, Duration: 30 day, Stop date: 05/09/13 11:47:00 PO No Longer Active Brendel 04/09/2013 [facility] Vitamin D3 1000 intl units oral tablet 1,000 IntlUnit, 1 tab, Route: PO, Drug form: TAB, Daily, Dosing Weight 81.8, kg, Start date: 04/09/13 9:00:00, Duration: 30 day, Stop date: 05/08/13 9:00:00 PO No Longer Active Brendel 04/09/2013 [facility] acetaminophen-hydrocodone 325 mg-5 mg oral tablet 1 tab, Route: PO, Drug Form: TAB, Q4H, PRN Pain, Start date: 04/08/13 12:26:00, Duration: 30 day, Stop date: 05/08/13 12:25:00 PO No Longer Active Brendel 04/08/2013 [facility] Oriska 5/325 oral tablet 2 tab, Route: PO, Drug Form: TAB, Dosing Weight 81.8, kg, Q4H, PRN Pain, Start date: 04/08/13 12:26:00, Duration: 30 day, Stop date: 05/08/13 12:25:00 PO No Longer Active Brendel 04/08/2013 [facility] lactulose 20 gm, 30 ml, Route: PO, Drug Form: SYRP, Dosing Weight 81.8, kg, Q8H, PRN Constipation, Start date: 04/06/13 13:17:00, Duration: 30 day, Stop date: 05/06/13 13:16:00 PO No Longer Active Brendel 04/06/2013 [facility] bisacodyl 10 mg, 1 supp, Route: OH, Drug form: SUPP, Daily, Dosing Weight 81.8, kg, PRN Constipation, Start date: 04/06/13 13:17:00, Duration: 30 day, Stop date: 05/06/13 13:16:00 OH No Longer Active Brendel 04/06/2013 [facility] [place] 5/325 oral tablet 2 tab, Route: PO, Drug Form: TAB, Dosing Weight 81.8, kg, Q6H, PRN Pain, Start date: 04/05/13 14:39:00, Duration: 30 day, Stop date: 05/05/13 14:38:00 PO No Longer Active Brendel 04/05/2013 [facility] Lovenox 40 mg, 0.4 mL, Route: SUB-Q, Drug form: INJ, [id number], Dosing Weight 81.818, kg, Start date: 04/05/13 6:00:00, Duration: 30 day, Stop date: 05/04/13 6:00:00 SUB-Q No Longer Active Teqw[place]ah 04/05/2013 [facility] Cipro 500 mg, 1 tab, Route: PO, Drug form: TAB, [id number], Dosing Weight 81.8, kg, Start date: 04/05/13 2:00:00, Duration: 30 day, Stop date: 05/04/13 14:00:00 PO No Longer Active Brendel 04/05/2013 [facility] Xalatan 1 drp, Route: BOTH EYES, Bedtime, Drug form: SOLN, Start date: 04/04/13 21:00:00, Duration: 30 day, Stop date: 05/03/13 21:00:00 BOTH EYES No Longer Active Brendel 04/05/2013 [facility] Cosopt 1 drp, Route: BOTH EYES, BID, Drug form: SOLN, Start date: 04/04/13 21:00:00, Duration: 30 day, Stop date: 05/04/13 9:00:00 BOTH EYES No Longer Active Brendel 04/05/2013 [facility] ferrous sulfate 325 mg, 1 tab, Route: PO, Drug form: ECTAB, BID-Meals, Dosing Weight 81.8, kg, Start date: 04/04/13 17:00:00, Duration: 30 day, Stop date: 05/04/13 8:00:00 PO No Longer Active Brendel 04/04/2013 [facility] docusate sodium 100 mg oral capsule 100 mg, 1 cap, Route: PO, Drug form: CAP, BID, Dosing Weight 81.8, kg, Start date: 04/04/13 17:00:00, Duration: 30 day, Stop date: 05/04/13 9:00:00 PO No Longer Active Brendel 04/04/2013 [facility] Protonix 40 mg, 1 tab, Route: PO, Drug form: ECTAB, Before Dinner, Start date: 04/04/13 16:30:00, Duration: 30 day, Stop date: 05/03/13 16:30:00 PO No Longer Active Brendel 04/04/2013 [facility] Cipro 400 mg, 200 mL, Route: IVPB, Drug form: INJ, [id number], Dosing Weight 81.8, kg, Start date: 04/04/13 13:00:00, Duration: 30 day, Stop date: 05/04/13 1:00:00 IVPB No Longer Active Phan 04/04/2013 [facility] acetaminophen-hydrocodone 325 mg-5 mg oral tablet 1 tab, Route: PO, Drug Form: TAB, Q6H, PRN Pain, Start date: 04/04/13 12:50:00, Duration: 30 day, Stop date: 05/04/13 12:49:00 PO No Longer Active Brendel 04/04/2013 [facility] acetaminophen 650 mg, 2 tab, Route: PO, Drug form: TAB, Q4H, Dosing Weight 81.8, kg, PRN Pain Score 1-3, Start date: 04/04/13 11:41:00, Duration: 30 day, Stop date: 05/04/13 11:40:00 PO No Longer Active Brendel 04/04/2013 [facility] Saline Flush 0.9% 3 mL, Route: IVP, Drug Form: INJ, Dosing Weight 81.8, kg, Q8H, PRN Line Flush, Start date: 04/04/13 11:41:00, Duration: 30 day, Stop date: 05/04/13 11:40:00, Administer at least once every 8 hoursAdm inister at least once every 8 hours IVP No Longer Active Brendel 04/04/2013 [facility] Feosol 325 mg oral tablet 325 mg, 1 tab, Route: PO, Drug form: ECTAB, BID-Meals, Dosing Weight 81.8, kg, Start date: 04/03/13 17:00:00, Duration: 30 day, Stop date: 05/03/13 8:00:00 PO No Longer Active Phan 04/03/2013 [facility] hydromorphone 0.5 mg, 0.5 mL, Route: IV, Drug form: SOLN, Q4H, PRN Pain Score 7-10, Start date: 04/02/13 20:01:00, Duration: 30 day, Stop date: 05/02/13 20:00:00 IV No Longer Active Brendel 04/03/2013 [facility] Colace 100 mg oral capsule 100 mg, 1 cap, Route: PO, Drug form: CAP, BID, Dosing Weight 81.8, kg, Start date: 04/01/13 17:00:00, Duration: 30 day, Stop date: 05/01/13 9:00:00 PO No Longer Active [place] 04/01/2013 [facility] Cipro 400 mg, 200 mL, Route: IVPB, Drug form: INJ, [id number], Dosing Weight 81.8, kg, Start date: 04/01/13 17:00:00, Duration: 30 day, Stop date: 05/01/13 5:00:00 IVPB No Longer Active Simpson 04/01/2013 [facility] Protonix 40 mg, 1 tab, Route: PO, Drug form: ECTAB, Before Dinner, Start date: 04/01/13 16:30:00, Duration: 30 day, Stop date: 04/30/13 16:30:00 PO No Longer Active [place] 04/01/2013 [facility] Ancef + Sodium Chloride 0.9% IV 100 mL 1 gm, Route: IVPB, [id number], Dosing Weight 81.8, kg, Start date: 04/01/13 14:00:00, Duration: 2 doses or times, Stop date: 04/01/13 22:00:00 IVPB No Longer Active Simpson 04/01/2013 [facility] Oriska 5/325 oral tablet 1 tab, Route: PO, Drug Form: TAB, Dosing Weight 81.8, kg, Q6H, PRN as needed for pain, Start date: 04/01/13 11:50:00, Duration: 30 day, Stop date: 05/01/13 11:49:00 PO No Longer Active [place] 04/01/2013 [facility] labetalol 10 mg, Route: IVP, Drug form: INJ, ONCE, Dosing Weight 81.8, kg, Start date: 04/01/13 9:12:00, Stop date: 04/01/13 9:12:00 IVP No Longer Active Wahl 04/01/2013 [facility] Prilosec OTC 20 mg, Route: PO, Drug form: ECTAB, Daily, Dosing Weight 81.818, kg, Start date: 04/01/13 9:00:00, Duration: 30 day, Stop date: 04/30/13 9:00:00 PO No Longer Active [place] 04/01/2013 [facility] acetaminophen-oxycodone 325 mg-5 mg oral tablet 1 tab, Route: PO, Drug Form: TAB, Dosing Weight 81.8, kg, Q4H, PRN Pain Score 1-3, Start date: 04/01/13 8:30:00, Duration: 30 day, Stop date: 05/01/13 8:29:00 PO No Longer Active Wahl 04/01/2013 [facility] fentanyl 25 microgram, 0.5 mL, Route: IVP, Drug form: INJ, Q5Min, Dosing Weight 81.8, kg, PRN Pain Score 4-6, Start date: 04/01/13 8:30:00, Duration: 4 doses or times, Stop date: Limited # of times IVP No Longer Active Catracho 04/01/2013 [facility] hydromorphone 0.5 mg, 0.5 mL, Route: IVP, Drug form: SOLN, Q5Min, Dosing Weight 81.8, kg, PRN Pain Score 7-10, Start date: 04/01/13 8:30:00, Duration: 5 doses or times, Stop date: Limited # of times IVP No Longer Active Wahl 04/01/2013 [facility] flumazenil 0.2 mg, 2 mL, Route: IVP, Drug form: INJ, PRN, Dosing Weight 81.8, kg, PRN Benzodiazepine Reversal, Initial dose, Start date: 04/01/13 8:30:00, Duration: 30 day, Stop date: 05/01/13 8:29:00 IVP No Longer Active Wahl 04/01/2013 [facility] ondansetron 4 mg, 2 mL, Route: IVP, Drug form: INJ, ONCE, Dosing Weight 81.8, kg, PRN Nausea & Vomiting, Start date: 04/01/13 8:30:00 IVP No Longer Active [place] 04/01/2013 [facility] naloxone 0.04 mg, 0.1 mL, Route: IVP, Drug form: INJ, Q2MIN, Dosing Weight 81.8, kg, PRN Narcotic Reversal, Start date: 04/01/13 8:30:00, Duration: 8 doses or times, Stop date: Limited # of times IVP No Longer Active Wahl 04/01/2013 [facility] Lactated Ringers Injection IV 1000 mL 1,000 mL, Rate: 25 ml/hr, Infuse over: 40 hr, Route: IV, Dosing Weight 81.8 kg, Total Volume: 1,000, Start date: 04/01/13 7:41:00, Duration: 30 day, Stop date: 05/01/13 7:40:00 IV No Longer Active Catracho 04/01/2013 [facility] cefazolin + Sodium Chloride 0.9% IV 100 mL 1 gm, Route: IVPB, ONCE, Dosing Weight 81.8, kg, Start date: 04/01/13 5:59:00, Duration: 1 doses or times, Stop date: 04/01/13 5:59:00 IVPB No Longer Active Simpson 04/01/2013 [facility] Cipro I.V. 400 mg/200 mL intravenous solution 400 mg, 200 mL, Route: IVPB, Drug form: INJ, ONCE, Dosing Weight 81.8, kg, Start date: 04/01/13 5:58:00, Stop date: 04/01/13 5:58:00 IVPB No Longer Active Simpson 04/01/2013 [facility] latanoprost ophthalmic 0.005% solution 1 drp, Route: BOTH EYES, Bedtime, Drug form: SOLN, Start date: 03/31/13 21:00:00, Duration: 30 day, Stop date: 04/29/13 21:00:00 BOTH EYES No Longer Active T[place] 04/01/2013 [facility] Cosopt ophthalmic solution 1 drp, Route: BOTH EYES, BID, Drug form: SOLN, Start date: 03/31/13 21:00:00, Duration: 30 day, Stop date: 04/30/13 9:00:00 BOTH EYES No Longer Active [facility] 04/01/2013 [facility] enoxaparin 40 mg, 0.4 mL, Route: SUB-Q, Drug form: INJ, [id number], Dosing Weight 81.818, kg, Start date: 03/31/13 19:00:00, Duration: 30 day, Stop date: 04/30/13 6:00:00 SUB-Q No Longer Active [facility] 04/01/2013 [facility] Saline Flush 0.9% 5 ml, Route: IVP, Drug Form: INJ, Dosing Weight 81.818, kg, PRN, PRN Line Flush, Start date: 03/31/13 18:34:00, Duration: 30 day, Stop date: 04/30/13 18:33:00 IVP No Longer Active [facility] 03/31/2013 [facility] Dextrose 5% with 0.45% NaCl IV 1000 mL 1,000 mL, Rate: 100 ml/hr, Infuse over: 10 hr, Route: IV, Dosing Weight 81.818 kg, Total Volume: 1,000, Start date: 03/31/13 18:34:00, Duration: 30 day, Stop date: 04/30/13 18:33:00 IV No Longer Active [place] 03/31/2013 [facility] morphine Sulfate 4 mg, Route: IVP, Q3H, Dosing Weight 81.818, kg, PRN Pain Score 7-10, Start date: 03/31/13 18:34:00, Duration: 30 day, Stop date: 04/30/13 18:33:00 IVP No Longer Active [place] 03/31/2013 [facility] ondansetron 4 mg, Route: IVP, Q8H, Dosing Weight 81.818, kg, PRN Nausea & Vomiting, Start date: 03/31/13 18:34:00, Duration: 30 day, Stop date: 04/30/13 18:33:00 IVP No Longer Active [facility] 03/31/2013 [facility] NS 1,000 mL 1,000 mL, Rate: 100 ml/hr, Infuse over: 10 hr, Route: IV, Dosing Weight 81.818 kg, Total Volume: 1,000, Start date: 03/31/13 18:24:00, Duration: 30 day, Stop date: 04/30/13 18:23:00 IV No Longer Active [place] 03/31/2013 [facility] Zofran 4 mg, 2 mL, Route: IVP, Drug form: INJ, Q8H, Dosing Weight 81.818, kg, PRN as needed for nausea/vomiting, Priority: STAT, Start date: 03/31/13 18:18:00, Duration: 30 day, Stop date: 04/30/13 18:17:00 [facility] morphine Sulfate 4 mg, 2 mL, Route: IVP, Drug form: INJ, Q4H, Dosing Weight 81.818, kg, PRN Pain Score 7-10, Start date: 03/31/13 18:18:00, Duration: 30 day, Stop date: 04/30/13 18:17:00 IVP No Longer Active Phan 03/31/2013 [facility] Cosopt ophthalmic solution 1 drp, BOTH EYES, BID, Substitute Allowed B[facility] EYES [facility] 03/[facility] latanoprost ophthalmic 0.005% solution 1 drp, BOTH EYES, Bedtime, Substitute Allowed BOTH EYES On [facility] 03/31/2013 [facility] Prilosec OTC 20 mg oral enteric coated tablet 20 mg, 1 tab, PO, Daily, Substitution Allowed PO On Hold [facility] 03/31/2013 [facility] Aleve 220 mg oral tablet 220 mg, 1 tab, PO, Q8H, PRN, as needed for arthritis, Substitution Allowed PO On Hold 03/31/2013 [facility] ondansetron 4 mg, 2 mL, Route: IVP, Drug form: INJ, ONCE, Dosing Weight 81.818, kg, Priority: STAT, Start date: 03/31/13 14:38:00, Stop date: 03/31/13 14:38:00 IVP No Longer Active [place] 03/31/2013 [facility] Saline Flush 0.9% 5 mL, Route: IVP, Drug Form: INJ, Dosing Weight 81.818, kg, PRN, PRN Line Flush, Start date: 03/31/13 14:38:00, Duration: 30 day, Stop date: 04/30/13 14:37:00 IVP No Longer Active [facility] 03/31/2013 [facility] morphine Sulfate 4 mg, 2 mL, Route: IVP, Drug form: INJ, ONCE, Dosing Weight 81.818, kg, Priority: STAT, Start date: 03/31/13 14:38:00, Stop date: 03/31/13 14:38:00 IVP No Longer Active [facility] 03/31/2013 [facility] Allergies, Adverse Reactions, Alerts Substance Category Reaction Severity Reaction type Status Date Reported Comments Source morphine Assertion Drug allergy Active [facility] Immunizations Immunization Date Given Site Status Last Updated Comments Source Results Order Name Results Value Reference Range Date Interpretation Comments Source Barium Swallow w Esophagus Function DX Barium Swallow w Esophagus Function DX Barium Swallow w Esophagus Function DX COMPARISON: None CLINICAL HISTORY: - large hiatal hernia. Fluoroscopy time:1.4 MIN Reference Air Kerma: 41.18 mGy TECHNIQUE: Thin barium was utilized for recumbent supine right oblique and left oblique images. Additional imaging could not be performed due to patient's underlying clinical condition. FINDINGS: There is no delay in passage of the barium bolus from the pharynx into the esophagus. The cricopharyngeus relaxes normally. There is no evidence for cricopharyngeal bar or Zenker's diverticulum. Oblique images reveal large type IV hiatal hernia with the entire stomach intrathoracic in location. There is herniation of the omentum also noted. The stomach has an upside down configuration but there is no evidence for volvulus or obstruction. There is no significant esophageal dysmotility noted. Overhead images performed at the conclusion of the procedure reveals slow passage of barium from the stomach into the small bowel. IMPRESSION: Large type IV hiatal hernia is noted at the GE junction, with the entire stomach intrathoracic in location. No fluoroscopic evidence to suggest gastric volvulus or obstruction. SL: [id number] 06/13/2018 - - Read by: Daniel Walker MD Dictated Date/time: 06/13/18 13:36 Electronically Signed by: Daniel Walker MD 06/13/18 15:38 FINAL REPORT [facility] Chest/Abdomen/Pelvis wo IV contrast CT Chest/Abdomen/Pelvis wo IV contrast CT Clinical Indication: History of cellulitis in the bilateral lower legs. Comparison: CT chest with IV contrast from 04/29/2013. TECHNIQUE: Helical imaging was performed without injection of IV contrast, from the chest through the symphysis with multiplanar reformations obtained. IV CONTRAST: No IV contrast was administered. GI CONTRAST: 50 mL of Omnipaque [address] imaging performed at this location utilizes radiation dose optimization techniques which include one or more of the following: -Automated exposure control -Adjustment of the mA and/or kV according to patient size -Use of iterative reconstruction technique CT Radiation Dose DLP 1223.88 mGy-cm FINDINGS: CHEST: LUNG PARENCHYMA AND PLEURA: 8 mm nodule near the left lung apex (series 4 image 33). 5 mm nodule appreciated in the anterior aspect of the left upper lobe (series 4 image 54). 4 mm nodule noted in the anterior aspect of the left upper lobe (series 4 image 45). Mild biapical pleural/parenchymal scarring is noted. Minimal bibasilar atelectatic stranding is present. There is no significant interstitial lung disease. There are no pleural effusions. There is no pneumothorax. AIRWAY: The central airway is normal. MEDIASTINUM: No significant mediastinal lymphadenopathy. There are some prominent mediastinal nodes, located primarily in the AP window and anterior to the trachea, at the level of the michael, but they do not appear enlarged by CT standards, measuring up to 8 mm along the short axis diameter. Postsurgical changes are noted in the left thyroid lobe. A peripherally calcified 1.1 cm nodular density is noted in the right thyroid lobe. HEART: There is no evidence of RV strain. The cardiac chambers are otherwise unremarkable. There is trace pericardial effusion. VASCULAR STRUCTURES: The pulmonary arteries and great vessels are unremarkable. The thoracic aorta is within normal limits.. Moderate atherosclerotic burden of the aortic arch, the origin of the right brachiocephalic trunk and descending aorta are appreciated. Marked atherosclerotic tendon is noted in the coronary arteries. The superior vena cava is unremarkable. ESOPHAGUS: No gross abnormalities. OSSEOUS STRUCTURES: There are no significant osseous abnormalities seen. ABDOMEN AND PELVIS: LIVER: There are no gross masses or intrahepatic biliary ductal dilatation noted. BILIARY TREE: The common bile duct is normal in caliber without evidence of filling defects. GALLBLADDER: Small amount of layering hyperdense material is noted in the gallbladder, which likely represents a mixture of refluxed oral contrast and sludge. The gallbladder is otherwise unremarkable, there is no evidence of cholelithiasis or cholecystitis. PANCREAS: The pancreas is unremarkable. The pancreatic duct is normal in caliber. SPLEEN: The spleen is normal in size and there are no parenchymal abnormalities. ADRENALS: The right adrenal gland is unremarkable. The left adrenal gland is unremarkable. KIDNEYS: There is no evidence of renal or ureteral calculi. There is no evidence of hydronephrosis. There is mild bilateral perinephric fat stranding, left greater than right, likely the result of chronic medical renal disease. BOWEL: The visualized portion of the esophagus is unremarkable. There is a large hiatal hernia with the entire stomach appearing to herniate into the thorax. The small bowel is normal in caliber and there is no evidence of masses or obstruction. The colon is normal in caliber and there are no masses. Scattered diverticula are noted in the descending and sigmoid colon, without any evidence of surrounding inflammatory changes. APPENDIX: The appendix is not definitively visualized on this study. PELVIS: There are no pelvic mass. The urinary bladder is normal. PERITONEUM: There is no evidence for free intraperitoneal fluid or air. SOFT TISSUES: The soft tissues are unremarkable. There is no evidence of masses or hernias. LYMPH NODES: There are enlarged bilateral inguinal lymph nodes measuring up to 1.1 cm on the short axis diameter. VASCULATURE: The abdominal aorta is normal in caliber. MUSCULOSKELETAL: An age-indeterminate anterior compression deformity involving the L3 vertebral body, with approximately 50% height loss. Multilevel degenerative changes are appreciated in the lumbar spine. Metallic hardware is noted spanning the visualized portion of the left femur. Dextroconvex curvature of the lumbar spine is noted. IMPRESSION: 1. Multiple left upper lobe pulmonary nodules as detailed above. Follow-up as per risk factors. 2. Markedly large hiatal hernia, with the entire stomach appearing to herniate into the thorax. Left colonic diverticulosis without any CT evidence of acute diverticulitis. 3. Bilateral inguinal lymphadenopathy, of uncertain etiology. Some prominent mediastinal lymph nodes, as detailed above, which do not appear enlarged by CT criteria. 4. Age-indeterminate anterior compression deformity involving the L3 vertebral body, with approximately 50% height loss. 5. Trace pericardial effusion. 6. Additional chronic/incidental findings, as detailed above. SL: [id number] 06/09/2018 - - Read by: Phillip Posada DO Dictated Date/time: 06/09/18 08:38 Electronically Signed by: Phillip Posada DO 06/09/18 13:47 FINAL REPORT [facility] Ext Lower Venous Doppler Bilat US Ext Lower Venous Doppler Bilat US Clinical Indication: Bilateral leg pain and swelling. Comparison: None TECHNIQUE: Sonographic evaluation of the bilateral lower extremity veins was performed using high resolution B-mode imaging, along with pulse and color Doppler imaging. FINDINGS: Right lower extremity: The common femoral vein, femoral vein, popliteal vein and visualized posterior tibial/calf veins are patent. There is no echogenic debris to suggest deep venous thrombosis. The saphenofemoral junction is unremarkable. Left lower extremity: The common femoral vein, superficial femoral vein, popliteal vein and visualized posterior tibial/calf veins are patent. There is no echogenic debris to suggest deep venous thrombosis. The saphenofemoral junction is unremarkable. IMPRESSION: 1. No deep venous thrombus in the right or left lower extremities. SL: [id number] 06/08/2018 - - Read by: Tressa Yanez MD Dictated Date/time: 06/08/18 23:00 Electronically Signed by: Tressa Yanez MD 06/08/18 23:00 FINAL REPORT [facility] Chest 1view DX Chest 1view DX Two-view chest Patient Name: HAILEY SUNSHINE : 1935; Age: 83 years Female MR: [id number] Study: Chest 1view DX Order Time: 06/08/2018 11:35 AM CDT Clinical Indication: Abnormal chest sounds - weakness. COMPARISON: 11/19/2016 FINDINGS: Views: 1 Retrocardiac opacity compatible with a large hiatal hernia. Cardiomediastinal silhouette is unchanged. There is no convincing focal consolidation, effusion or pneumothorax. Upper abdomen is unremarkable. IMPRESSION: 1. No acute cardiopulmonary process demonstrated. Large hiatal hernia. SL: [id number] 06/08/2018 - - Read by: Julio C Roy MD Dictated Date/time: 06/08/18 12:22 Electronically Signed by: Julio C Roy MD 06/08/18 12:31 FINAL REPORT [facility] Wrist 2 views DX Wrist 2 views DX C-arm spot images of the left wrist from the operating room show volar plate and screw fixation of the previously demonstrated distal radial fracture. The fracture fragments appear anatomically aligned. The distal ulnar fracture appears anatomically reduced. [id number] 11/22/2016 - - Read by: Ti Timmons MD Dictated Date/time: 11/22/16 16:30 Electronically Signed by: Ti Timmons MD 11/22/16 16:32 FINAL REPORT [facility] CHEM PANEL eGFR 39 mL/min/1.73m2 11/19/2016 Result Comment: The eGFR is calculated using the [...] from the National Kidney Disease Education Program (NKDEP) which additionally recommends that when the eGFR is used in patients with extremes of body mass index for purposes of drug dosing, the eGFR should be multiplied by the estimated BMI. [facility] CHEM PANEL Calcium Lvl 8.8 mg/dL 8.5 - 10.5 11/19/2016 [facility] CHEM PANEL BUN 47 mg/dL 7 - 22 11/19/2016 [facility] CHEM PANEL Chloride Lvl 105 meq/L 95 - 109 11/19/2016 [facility] CHEM PANEL CO2 23 meq/L 24 - 32 11/19/2016 [facility] CHEM PANEL Creatinine Lvl 1.30 mg/dL 0.50 - 1.40 11/19/2016 [facility] CHEM PANEL Glucose Lvl 106 mg/dL 70 - 99 11/19/2016 [facility] CHEM PANEL Potassium Lvl 4.0 meq/L 3.5 - 5.1 11/19/2016 [facility] CHEM PANEL Sodium Lvl 139 meq/L 135 - 145 11/19/2016 [facility] CHEM PANEL AGAP 15.0 meq/L 10.0 - 20.0 11/19/2016 [facility] HEMATOLOGY Basophils 1.0 % 0.0 - 1.0 11/19/2016 [facility] HEMATOLOGY Lymphocytes # 1.2 K/CMM 1.0 - 5.5 11/19/2016 [facility] HEMATOLOGY Eosinophils # 0.1 K/CMM 0.0 - 0.5 11/19/2016 [facility] Monocytes # 0.9 K/CMM 0.0 - 0.8 11/19/2016 [facility] Basophils # 0.1 K/CMM 0.0 - 0.2 11/19/2016 [facility] Monocytes 11.2 % 2.0 - 12.0 11/19/2016 [facility] Segs 71.9 % 45.0 - 75.0 11/19/2016 [facility] Lymphocytes 14.2 % 20.0 - 40.0 11/19/2016 [facility] Segs-Bands # 6.0 K/CMM 1.5 - 8.1 11/19/2016 [facility] Eosinophils 1.7 % 0.0 - 4.0 11/19/2016 [facility] RDW 13.2 % 11.5 - 14.5 11/19/2016 [facility] MPV 8.8 fL 7.4 - 10.4 11/19/2016 [facility] MCHC 33.4 g/dL 32.0 - 36.0 11/19/2016 [facility] Platelet 227 K/CMM 133 - 450 11/19/2016 [facility] MCH 29.7 pg 27.0 - 31.0 11/19/2016 [facility] RBC 4.48 M/CMM 4.20 - 5.40 11/19/2016 [facility] Hgb 13.3 g/dL 12.0 - 16.0 11/19/2016 [facility] Hct 39.9 % 36.0 - 48.0 11/19/2016 [facility] MCV 89.1 fL 80.0 - 98.0 11/19/2016 [facility] WBC 8.3 K/CMM 3.7 - 10.4 11/19/2016 [facility] Chest 2 views DX Chest 2 views DX AP and lateral chest: The patient is rotated to the left on the PA view. The lateral view is limited by overlying upper extremity and wheelchair. There is a large hiatal hernia with an intrathoracic stomach, increased in size compared to previous radiographs on 05/02/2013, with components extending into both medial pleural spaces. The cardiac silhouette is normal in size. Calcification of the aortic arch is noted. The pulmonary vasculature appears normal. The lungs and pleural spaces are clear. There are no acute osseous abnormalities. Paratracheal surgical clips are again seen in the lower left cervical region. IMPRESSION: Large hiatal hernia without other acute radiographic abnormalities in the chest. [id number] 11/19/2016 - - Read by: Ti Timmons MD Dictated Date/time: 11/19/16 15:45 Electronically Signed by: Ti Timmons MD 11/19/16 15:49 FINAL REPORT [facility] ELECTROLYTES AGAP 11.8 meq/L 10.0 - 20.0 11/13/2016 [facility] ELECTROLYTES eGFR 53 mL/min/1.73m2 11/13/2016 Result Comment: The eGFR is calculated using the [...] from the National Kidney Disease Education Program (NKDEP) which additionally recommends that when the eGFR is used in patients with extremes of body mass index for purposes of drug dosing, the eGFR should be multiplied by the estimated BMI. [facility] ELECTROLYTES Glucose Lvl 100 mg/dL 70 - 99 11/13/2016 [facility] ELECTROLYTES BUN 41 mg/dL 7 - 22 11/13/2016 [facility] ELECTROLYTES Creatinine Lvl 1.00 mg/dL 0.50 - 1.40 11/13/2016 [facility] ELECTROLYTES Calcium Lvl 9.3 mg/dL 8.5 - 10.5 11/13/2016 [facility] ELECTROLYTES CO2 26 meq/L 24 - 32 11/13/2016 [facility] ELECTROLYTES Chloride Lvl 107 meq/L 95 - 109 11/13/2016 [facility] ELECTROLYTES Sodium Lvl 141 meq/L 135 - 145 11/13/2016 [facility] ELECTROLYTES Potassium Lvl 3.8 meq/L 3.5 - 5.1 11/13/2016 [facility] HEMATOLOGY MCH 30.2 pg 27.0 - 31.0 11/13/2016 [facility] HEMATOLOGY MCV 89.4 fL 80.0 - 98.0 11/13/2016 [facility] HEMATOLOGY Hct 41.8 % 36.0 - 48.0 11/13/2016 [facility] MPV 9.2 fL 7.4 - 10.4 11/13/2016 [facility] RBC 4.67 M/CMM 4.20 - 5.40 11/13/2016 [facility] Hgb 14.1 g/dL 12.0 - 16.0 11/13/2016 [facility] Platelet 199 K/CMM 133 - 450 11/13/2016 [facility] RDW 13.8 % 11.5 - 14.5 11/13/2016 [facility] MCHC 33.8 g/dL 32.0 - 36.0 11/13/2016 [facility] WBC 8.9 K/CMM 3.7 - 10.4 11/13/2016 [facility] PT 14.1 s 12.0 - 14.7 11/13/2016 [facility] [facility] INR 1.07 0.85 - 1.17 11/13/2016 [facility] PTT 28.2 s 22.9 - 35.8 11/13/2016 [facility] Lymphocytes # 1.1 K/CMM 1.0 - 5.5 11/13/2016 [facility] Monocytes # 0.5 K/CMM 0.0 - 0.8 11/13/2016 [facility] Segs-Bands # 7.2 K/CMM 1.5 - 8.1 11/13/2016 [facility] Eosinophils 0.4 % 0.0 - 4.0 11/13/2016 [facility] Basophils 0.6 % 0.0 - 1.0 11/13/2016 [facility] Basophils # 0.1 K/CMM 0.0 - 0.2 11/13/2016 [facility] Monocytes 6.1 % 2.0 - 12.0 11/13/2016 [facility] Segs 80.7 % 45.0 - 75.0 11/13/2016 [facility] Lymphocytes 12.2 % 20.0 - 40.0 11/13/2016 [facility] Forearm 2 views DX Forearm 2 views DX Patient Name: HAILEY SUNSHINE : 1935; Age: 81 years Female MR: [id number] Study: Forearm 2 views DX 11/13/2016 2:50 PM CDT CLINICAL INDICATION: Pain from a fall COMPARISON: Same-day wrist radiographs FINDINGS: Views and laterality: Left forearm 2 views Acute, comminuted, and markedly displaced fracture of the distal radius. Acute, comminuted and mildly displaced fracture of the distal ulna. The carpal bones remain in alignment with the distal radial fracture fragment. Mild degenerative changes of the 1st carpometacarpal joint. Soft tissue swelling surrounds the wrist. IMPRESSION: Acute fractures of the distal radius and distal ulna. SL: [id number] 11/13/2016 - - Read by: Carlton Villalobos MD Dictated Date/time: 11/13/16 16:37 Electronically Signed by: Carlton Villalobos MD 11/13/16 16:38 FINAL REPORT [facility] Wrist 2 views DX Wrist 2 views DX Patient Name: HAILEY SUNSHINE : 1935; Age: 81 years y/o Female MR: [id number] Study: Wrist 2 views DX 11/13/2016 2:49 PM CDT Ordering Physician: Clinical Indication: Left wrist pain from a fall; Comparison: None Left wrist 2 views Distal radial and ulnar metaphyseal fractures, with posterior displacement of both by 1 bone width. Overriding of fragments. The carpal bones appear intact. Chronic degenerative changes at the 1st carpometacarpal joint. SL: [id number] 11/13/2016 - - Read by: Ghulam Duran MD Dictated Date/time: 11/13/16 15:38 Electronically Signed by: Ghulam Duran MD 11/13/16 15:39 FINAL REPORT [facility] INR 2.29 0.85 - 1.17 05/05/2013 [place] 15Interpretive Data: RECOMMENDED RANGES FOR PROTIME INR: 2.0-3.0 for most medical and surgical thromboembolic states. 2.5-3.5 for artificial heart valves and recurrent embolism. INR SHOULD BE USED ONLY FOR PATIENTS ON STABLE ANTICOAGULANT THERAPY. [facility] HEMATOLOGY PT 24.8 s 12.0 - 14.7 05/05/2013 HI [facility] CHEMISTRY AGAP 14.3 meq/L 10.0 - 20.0 05/04/2013 Normal [facility] CHEMISTRY eGFR 48 mL/min/1.73m2 05/04/2013 NA 5Result Comment: The eGFR is calculated using the [...] from the National Kidney Disease Education Program (NKDEP) which additionally recommends that when the eGFR is used in patients with extremes of body mass index for purposes of drug dosing, the eGFR should be multiplied by the estimated BMI. [facility] CHEMISTRY CO2 24 meq/L 24 - 32 05/04/2013 Normal [facility] CHEMISTRY Calcium Lvl 8.5 mg/dL 8.5 - 10.5 05/04/2013 Normal [facility] CHEMISTRY Glucose Lvl 97 mg/dL 70 - 99 05/04/2013 Normal 8Interpretive Data: Adult reference range values reflect the clinical guidelines of the [place] [employer]. [facility] CHEMISTRY BUN 19 mg/dL 7 - 22 05/04/2013 Normal [facility] CHEMISTRY Creatinine Lvl 1.1 mg/dL 0.5 - 1.4 05/04/2013 Normal [facility] CHEMISTRY Potassium Lvl 3.3 meq/L 3.5 - 5.1 05/04/2013 LOW [facility] CHEMISTRY Chloride Lvl 109 meq/L 95 - 109 05/04/2013 Normal [facility] CHEMISTRY Sodium Lvl 144 meq/L 135 - 145 05/04/2013 Normal [facility] HEMATOLOGY Basophils 0.6 % 0.0 - 1.0 05/04/2013 Normal [facility] HEMATOLOGY Eosinophils 0.8 % 0.0 - 4.0 05/04/2013 Normal [facility] HEMATOLOGY Segs-Bands # 3.7 K/CMM 1.5 - 8.1 05/04/2013 Normal [facility] HEMATOLOGY Basophils # 0.0 K/CMM 0.0 - 0.2 05/04/2013 Normal [facility] HEMATOLOGY Eosinophils # 0.0 K/CMM 0.0 - 0.5 05/04/2013 Normal [facility] HEMATOLOGY Monocytes # 0.7 K/CMM 0.0 - 0.8 05/04/2013 Normal [facility] HEMATOLOGY Lymphocytes # 1.3 K/CMM 1.0 - 5.5 05/04/2013 Normal [facility] HEMATOLOGY Segs 64.3 % 45.0 - 75.0 05/04/2013 Normal [facility] HEMATOLOGY Lymphocytes 22.7 % 20.0 - 40.0 05/04/2013 Normal [facility] HEMATOLOGY Monocytes 11.6 % 2.0 - 12.0 05/04/2013 Normal [facility] HEMATOLOGY PT 24.0 s 12.0 - 14.7 05/04/2013 HI [facility] HEMATOLOGY INR 2.20 0.85 - 1.17 05/04/2013 [place] 16Interpretive Data: RECOMMENDED RANGES FOR PROTIME INR: 2.0-3.0 for most medical and surgical thromboembolic states. 2.5-3.5 for artificial heart valves and recurrent embolism. INR SHOULD BE USED ONLY FOR PATIENTS ON STABLE ANTICOAGULANT THERAPY. [facility] HEMATOLOGY Platelet 241 K/CMM 133 - 450 05/04/2013 Normal [facility] HEMATOLOGY RDW 15.9 % 11.5 - 14.5 05/04/2013 HI [facility] HEMATOLOGY MCHC 31.5 g/dL 32.0 - 36.0 05/04/2013 LOW [facility] MPV 9.2 fL 7.4 - 10.4 05/04/2013 Normal [facility] MCV 90.9 fL 81.0 - 99.0 05/04/2013 Normal [facility] MCH 28.6 pg 27.0 - 31.0 05/04/2013 Normal [facility] HEMATOLOGY RBC 3.98 M/CMM 4.20 - 5.40 05/04/2013 LOW [facility] HEMATOLOGY WBC 5.8 K/CMM 3.7 - 10.4 05/04/2013 Normal [facility] HEMATOLOGY Hgb 11.4 g/dL 12.0 - 16.0 05/04/2013 LOW [facility] HEMATOLOGY Hct 36.2 % 36.0 - 48.0 05/04/2013 Normal [facility] BEDSIDE GLUCOSE TESTING Gluc POC Lifscn 140 mg/dL 70 - 99 05/03/2013 [place] 3Interpretive Data: Upper Reportable Limit: 200 mg/dL. [facility] CHEMISTRY Magnesium Lvl 1.8 mg/dL 1.8 - 2.4 05/03/2013 Normal [facility] CHEMISTRY AGAP 12.5 meq/L 10.0 - 20.0 05/03/2013 Normal [facility] CHEMISTRY Glucose Lvl 96 mg/dL 70 - 99 05/03/2013 Normal 9Interpretive Data: Adult reference range values reflect the clinical guidelines of the [place] [employer]. [facility] CHEMISTRY CO2 26 meq/L 24 - 32 05/03/2013 Normal [facility] CHEMISTRY BUN 10 mg/dL 7 - 22 05/03/2013 Normal [facility] CHEMISTRY Chloride Lvl 110 meq/L 95 - 109 05/03/2013 HI [facility] CHEMISTRY eGFR 83 mL/min/1.73m2 05/03/2013 NA 6Result Comment: The eGFR is calculated using the [...] from the National Kidney Disease Education Program (NKDEP) which additionally recommends that when the eGFR is used in patients with extremes of body mass index for purposes of drug dosing, the eGFR should be multiplied by the estimated BMI. [facility] CHEMISTRY Creatinine Lvl 0.7 mg/dL 0.5 - 1.4 05/03/2013 Normal [facility] CHEMISTRY Potassium Lvl 3.5 meq/L 3.5 - 5.1 05/03/2013 Normal [facility] CHEMISTRY Sodium Lvl 145 meq/L 135 - 145 05/03/2013 Normal [facility] CHEMISTRY Calcium Lvl 8.5 mg/dL 8.5 - 10.5 05/03/2013 Normal [facility] HEMATOLOGY Segs 61.1 % 45.0 - 75.0 05/03/2013 Normal [facility] HEMATOLOGY Monocytes 13.8 % 2.0 - 12.0 05/03/2013 HI [facility] HEMATOLOGY Lymphocytes 23.4 % 20.0 - 40.0 05/03/2013 Normal [facility] HEMATOLOGY Eosinophils 0.8 % 0.0 - 4.0 05/03/2013 Normal [facility] HEMATOLOGY Lymphocytes # 1.3 K/CMM 1.0 - 5.5 05/03/2013 Normal [facility] HEMATOLOGY Segs-Bands # 3.4 K/CMM 1.5 - 8.1 05/03/2013 Normal [facility] HEMATOLOGY Basophils 0.9 % 0.0 - 1.0 05/03/2013 Normal [facility] HEMATOLOGY Monocytes # 0.8 K/CMM 0.0 - 0.8 05/03/2013 Normal [facility] HEMATOLOGY Basophils # 0.0 K/CMM 0.0 - 0.2 05/03/2013 Normal [facility] HEMATOLOGY Eosinophils # 0.0 K/CMM 0.0 - 0.5 05/03/2013 Normal [facility] HEMATOLOGY WBC 5.6 K/CMM 3.7 - 10.4 05/03/2013 Normal [facility] HEMATOLOGY Platelet 242 K/CMM 133 - 450 05/03/2013 Normal [facility] HEMATOLOGY MCH 28.5 pg 27.0 - 31.0 05/03/2013 Normal [facility] HEMATOLOGY Hgb 11.3 g/dL 12.0 - 16.0 05/03/2013 LOW [facility] HEMATOLOGY RBC 3.94 M/CMM 4.20 - 5.40 05/03/2013 [facility] HEMATOLOGY Hct 36.1 % 36.0 - 48.0 05/03/2013 Normal [facility] HEMATOLOGY RDW 16.0 % 11.5 - 14.5 05/03/2013 [facility] MCHC 31.2 g/dL 32.0 - 36.0 05/03/2013 [facility] HEMATOLOGY MCV 91.6 fL 81.0 - 99.0 05/03/2013 Normal [facility] HEMATOLOGY MPV 8.4 fL 7.4 - 10.4 05/03/2013 Normal [facility] CHEMISTRY CK MB 1.2 ng/mL 0.5 - 3.6 05/02/2013 Normal [facility] CHEMISTRY Total CK 32 unit/L 12 - 191 05/02/2013 Normal [facility] CHEMISTRY Troponin-I 0.10 ng/mL 0.00 - 0.40 05/02/2013 Normal [facility] CHEMISTRY CK MB Index 3.8 0.0 - 2.5 05/02/2013 [facility] Chest 1view Chest 1view PORTABLE CHEST (chest 1 view) 05/02/2013 HISTORY: Dyspnea, pulmonary embolism Comparison is made to a 04/29/2013. A study of 03/31/2013, a CT scan of the chest 04/29/2013, and CT images through the lung bases from an abdominal CT scan of 04/02/2011 were reviewed. FINDINGS: 1. There are no infiltrates, evidence of pulmonary infarction, pneumothorax, pleural effusions, or other acute process. 2. Heart size is within normal limits. There is no evidence of failure. 3. Large hiatal hernia. 4. Proximal left humeral fracture is noted. Please refer to the radiographic report of the left shoulder of 03/31/2013. 5. Postoperative changes, left cervical region. Coding: Chest 1view CPT code: 99766 SL: 13 Jm Romero M.D. 05/02/2013 - - Read by: Jm Romero Dictated Date/time: 05/02/13 13:42 Electronically Signed by: Jm Romero MD 05/02/13 13:48 FINAL REPORT [facility] CHEMISTRY AGAP 13.7 meq/L 10.0 - 20.0 05/02/2013 Normal [facility] CHEMISTRY Calcium Lvl 8.3 mg/dL 8.5 - 10.5 05/02/2013 LOW [facility] CHEMISTRY eGFR 83 mL/min/1.73m2 05/02/2013 NA 7Result Comment: The eGFR is calculated using the [...] from the National Kidney Disease Education Program (NKDEP) which additionally recommends that when the eGFR is used in patients with extremes of body mass index for purposes of drug dosing, the eGFR should be multiplied by the estimated BMI. [facility] CHEMISTRY Creatinine Lvl 0.7 mg/dL 0.5 - 1.4 05/02/2013 Normal [facility] CHEMISTRY BUN 11 mg/dL 7 - 22 05/02/2013 Normal [facility] CHEMISTRY Glucose Lvl 93 mg/dL 70 - 99 05/02/2013 Normal 10Interpretive Data: Adult reference range values reflect the clinical guidelines of the [place] [employer]. [facility] CHEMISTRY CO2 24 meq/L 24 - 32 05/02/2013 Normal [facility] CHEMISTRY Chloride Lvl 111 meq/L 95 - 109 05/02/2013 HI [facility] CHEMISTRY Potassium Lvl 3.7 meq/L 3.5 - 5.1 05/02/2013 Normal [facility] CHEMISTRY Sodium Lvl 145 meq/L 135 - 145 05/02/2013 Normal [facility] HEMATOLOGY RDW 15.9 % 11.5 - 14.5 05/02/2013 [facility] HEMATOLOGY MCH 28.9 pg 27.0 - 31.0 05/02/2013 Normal [facility] HEMATOLOGY Platelet 222 K/CMM 133 - 450 05/02/2013 Normal [facility] HEMATOLOGY MCHC 31.5 g/dL 32.0 - 36.0 05/02/2013 LOW [facility] HEMATOLOGY MPV 8.4 fL 7.4 - 10.4 05/02/2013 Normal [facility] HEMATOLOGY Hgb 11.1 g/dL 12.0 - 16.0 05/02/2013 [facility] HEMATOLOGY RBC 3.86 M/CMM 4.20 - 5.40 05/02/2013 [facility] HEMATOLOGY WBC 4.4 K/CMM 3.7 - 10.4 05/02/2013 Normal [facility] HEMATOLOGY MCV 91.6 fL 81.0 - 99.0 05/02/2013 Normal [facility] HEMATOLOGY Hct 35.4 % 36.0 - 48.0 05/02/2013 [facility] HEMATOLOGY INR 1.37 0.85 - 1.17 05/02/2013 [place] 17Interpretive Data: RECOMMENDED RANGES FOR PROTIME INR: 2.0-3.0 for most medical and surgical thromboembolic states. 2.5-3.5 for artificial heart valves and recurrent embolism. INR SHOULD BE USED ONLY FOR PATIENTS ON STABLE ANTICOAGULANT THERAPY. [facility] HEMATOLOGY PT 16.7 s 12.0 - 14.7 05/02/2013 [facility] HEMATOLOGY Basophils # 0.0 K/CMM 0.0 - 0.2 05/02/2013 Normal [facility] HEMATOLOGY Eosinophils # 0.1 K/CMM 0.0 - 0.5 05/02/2013 [facility] HEMATOLOGY Monocytes # 0.6 K/CMM 0.0 - 0.8 05/02/2013 Normal [facility] HEMATOLOGY Segs-Bands # 2.5 K/CMM 1.5 - 8.1 05/02/2013 Normal [facility] HEMATOLOGY Eosinophils 1.4 % 0.0 - 4.0 05/02/2013 Normal [facility] HEMATOLOGY Lymphocytes # 1.2 K/CMM 1.0 - 5.5 05/02/2013 [facility] HEMATOLOGY Basophils 1.1 % 0.0 - 1.0 05/02/2013 [facility] HEMATOLOGY Monocytes 12.6 % 2.0 - 12.0 05/02/2013 [facility] HEMATOLOGY Lymphocytes 27.8 % 20.0 - 40.0 05/02/2013 Normal [facility] HEMATOLOGY Segs 57.1 % 45.0 - 75.0 05/02/2013 Normal [facility] Brain wo contrast CT Brain wo contrast CT CT HEAD WITHOUT CONTRAST CLINICAL INDICATION: Blurry vision/ pt is dx with pos. DVT and PE. Comparison: 04/21/2013 TECHNIQUE: Multiple contiguous axial images of the brain were performed without IV contrast. FINDINGS: No acute territorial infarction or intracranial hemorrhage. No extra-axial fluid collection. Ventricles are symmetric and not displaced. Javier-white distinction is preserved. No mass, mass-effect, or midline shift. Mild cerebral atrophy and moderate to severe chronic small vessel ischemic change. Visualized paranasal sinuses are unremarkable. Osseous structures unremarkable. IMPRESSION: 1. No acute abnormality. 2. Diffuse cerebral atrophy and moderate to severe chronic small vessel ischemic change. SL: 16 04/30/2013 - - Read by: Peter Bustamante Dictated Date/time: 04/30/13 15:40 Electronically Signed by: Peter Bustamante MD 04/30/13 15:49 FINAL REPORT [facility] Troponin-I 0.55 ng/mL 0.00 - 0.40 04/30/2013 CRIT 11Result Comment: Critical Result(s) called to pedro crowley at 04/30/2013 09:40 byemw. Read back OK. [facility] HEMATOLOGY PTT 48.2 s 22.9 - 35.8 04/30/2013 [place] 18Interpretive Data: Heparin Therapeutic Range: 57 - 92 Seconds [facility] CHEMISTRY B/C Ratio 19 6 - 25 04/30/2013 Normal [facility] CHEMISTRY Albumin Lvl 3.2 g/dL 3.5 - 5.0 04/30/2013 LOW [facility] CHEMISTRY AST 19 unit/L 0 - 37 04/30/2013 Normal [facility] CHEMISTRY ALT 17 unit/L 0 - 65 04/30/2013 Normal [facility] CHEMISTRY Total Protein 6.2 g/dL 6.4 - 8.4 04/30/2013 LOW [facility] CHEMISTRY A/G Ratio 1.1 0.7 - 1.6 04/30/2013 Normal [facility] CHEMISTRY Globulin 3.0 g/dL 2.0 - 4.0 04/30/2013 Normal [facility] CHEMISTRY Bili Total 0.7 mg/dL 0.2 - 1.3 04/30/2013 Normal [facility] CHEMISTRY Alk Phos 153 unit/L 39 - 136 04/30/2013 HI [facility] CHEMISTRY BNP 402 pg/mL <=100 04/30/2013 [place] 13Interpretive Data: Elevated results are in line with increasing severity of congestive heart failure. Minor elevations between 100 and 300 may be seen with Myocardial Ischemia, Sodium retaining drugs, and compensated/treated heart failure. [facility] CHEMISTRY Troponin-I 1.33 ng/mL 0.00 - 0.40 04/30/2013 CRIT 12Result Comment: Critical Result(s) called to miryam at 04/29/2013 22:05 bysol_. Read back OK. [facility] BACTERIAL - SEROLOGY MRSA by PCR Positive 1, 2 *ABN* (04/29/2013 19:34:00) 04/30/2013 ABN 2Result Comment: "Significant Findings called to Mariola Peterson_at 2:40PM___by EVT___.Read Back OK." [facility] Extremity venous Duplex bilat US Extremity venous Duplex bilat US NAME: HAILEY SUNSHINE : 1935 SEX: F Ordering Physician: Yuri Singh Bilateral lower extremity venous Doppler US : Apr 29, 2013 09:18:00 PM. CLINICAL INDICATION: Bilateral leg pain. Comparison Examination: None. FINDINGS: Compression views, color doppler, spectral doppler wave form analysis and grayscale imaging were performed of the common femoral vein to the popliteal vein bilaterally. No evidence for deep venous thrombosis from the left common femoral vein to the left popliteal vein. Echogenic material is seen within the right common femoral vein with the right common femoral vein only being partially compressed. This is consistent with deep venous thrombosis. This extends into the superior aspect of the right proximal superficial femoral vein. No thrombosis is identified within the right mid or distal superficial femoral vein. Echogenic material and lack of compressibility is seen to the right popliteal vein consistent with deep venous thrombosis. Thrombosis is also noted to the right posterior tibial vein. Findings reviewed with the patient's nurse on 04/29/2013 at 2153. SL: 14 04/29/2013 - - Read by: Manuelito Ronquillo Dictated Date/time: 04/29/13 21:48 Electronically Signed by: Manuelito Ronquillo MD 04/29/13 21:54 FINAL REPORT [facility] CHEMISTRY pO2 Art 71 mm[Hg] 80 - 100 04/29/2013 LOW [facility] CHEMISTRY pH Art 7.39 7.35 - 7.45 04/29/2013 Normal [facility] CHEMISTRY pCO2 Art 32 mm[Hg] 35 - 45 04/29/2013 LOW [facility] CHEMISTRY BE Art -5 mMol/L -2-2 - 2 04/29/2013 LOW [facility] CHEMISTRY HCO3 Art 19 mMol/L 22 - 26 04/29/2013 LOW [facility] CHEMISTRY Temp Art 37.0 Jacqueline 04/29/2013 NA [facility] CHEMISTRY Site Art Left Rad (04/29/2013 15:12:00) 04/29/2013 Normal [facility] CHEMISTRY O2 Sat Art 93.9 % 95.0 - 100.0 04/29/2013 LOW [facility] CHEMISTRY Allens Art Positive (04/29/2013 15:12:00) 04/29/2013 Normal [facility] CHEMISTRY FiO2 Art 28.0 04/29/2013 NA [facility] URINALYSIS UA Bili Negative *NA* (04/29/2013 11:48:00) Negative 04/29/2013 [facility] URINALYSIS UA Blood Negative (04/29/2013 11:48:00) Negative 04/29/2013 Normal [facility] URINALYSIS UA Urobilinogen <=1.0 mg/dL
*NA*
(04/29/2013 11:48:00) <sup> </sup> 0.1 - 1.0 04/29/2013 NA [facility] URINALYSIS UA Sq Epi None Seen 04/29/2013 NA [facility] URINALYSIS UA RBC null 0 - 2 04/29/2013 Normal [facility] URINALYSIS UA Hyal Cast 2 /LPF 0 - 2 04/29/2013 Normal [facility] URINALYSIS UA WBC 1 /HPF 0 - 5 04/29/2013 Normal [facility] URINALYSIS UA Nitrite Negative (04/29/2013 11:48:00) Negative 04/29/2013 Normal [facility] URINALYSIS UA Leuk Est Negative (04/29/2013 11:48:00) Negative 04/29/2013 Normal [facility] URINALYSIS UA Ketones Negative mg/dL *NA* (04/29/2013 11:48:00) Negative 04/29/2013 [facility] URINALYSIS UA Glucose Negative mg/dL *NA* (04/29/2013 11:48:00) Negative 04/29/2013 NA [facility] URINALYSIS UA Protein Negative mg/dL (04/29/2013 11:48:00) Negative 04/29/2013 Normal [facility] URINALYSIS UA pH 5.0 5.0 - 8.0 04/29/2013 Normal [facility] URINALYSIS UA Spec Grav 1.017 <=1.030 04/29/2013 Normal [facility] URINALYSIS UA Color Yellow *NA* (04/29/2013 11:48:00) Yellow 04/29/2013 NA [facility] URINALYSIS UA Turbidity Slight *ABN* (04/29/2013 11:48:00) Clear 04/29/2013 ABN [facility] Microbiology Culture: Urine 04/29/2013 [facility] CHEMISTRY CK MB Index 2.7 0.0 - 2.5 04/29/2013 [facility] CHEMISTRY BNP 100 pg/mL <=100 04/29/2013 Normal 14Interpretive Data: Elevated results are in line with increasing severity of congestive heart failure. Minor elevations between 100 and 300 may be seen with Myocardial Ischemia, Sodium retaining drugs, and compensated/treated heart failure. [facility] CHEMISTRY Total CK 99 unit/L 12 - 191 04/29/2013 Normal [facility] CHEMISTRY AST 44 unit/L 0 - 37 04/29/2013 [facility] CHEMISTRY Bili Total 1.0 mg/dL 0.2 - 1.3 04/29/2013 Normal [facility] CHEMISTRY Alk Phos 174 unit/L 39 - 136 04/29/2013 [facility] CHEMISTRY ALT 20 unit/L 0 - 65 04/29/2013 Normal [facility] CHEMISTRY Albumin Lvl 3.4 g/dL 3.5 - 5.0 04/29/2013 LOW [facility] CHEMISTRY Total Protein 6.8 g/dL 6.4 - 8.4 04/29/2013 Normal [facility] CHEMISTRY A/G Ratio 1.0 0.7 - 1.6 04/29/2013 Normal [facility] CHEMISTRY Globulin 3.4 g/dL 2.0 - 4.0 04/29/2013 Normal [facility] CHEMISTRY B/C Ratio 32 6 - 25 04/29/2013 [facility] CHEMISTRY CK MB 2.7 ng/mL 0.5 - 3.6 04/29/2013 Normal [facility] HEMATOLOGY Plt Morph Normal (04/29/2013 11:40:00) 04/29/2013 Normal [facility] HEMATOLOGY RBC Morph Normal (04/29/2013 11:40:00) 04/29/2013 Normal [facility] HEMATOLOGY PTT 35.1 s 22.9 - 35.8 04/29/2013 Normal 19Interpretive Data: Heparin Therapeutic Range: 57 - 92 Seconds [facility] BEDSIDE GLUCOSE TESTING Gluc POC Lifscn 132 mg/dL 70 - 99 04/29/2013 [place] 4Interpretive Data: Upper Reportable Limit: 200 mg/dL. [facility] BEDSIDE GLUCOSE TESTING Comment1 Notify RN/ 04/29/2013 NA [facility] Chest w contrast CT Chest w contrast CT Typographical error within the impression. Impression should read: "Positive for pulmonary embolus. Critical finding relayed to ordering physician by phone at time of dictation. Small pulmonary nodules left upper lobe. Surveillance recommended." SL:13 HISTORY: Chest tightness. Chest CT with IV contrast, attention pulmonary arteries. Positive for pulmonary embolus with thrombus in bilateral proximal pulmonary arteries and lower lobe branch arteries. Indeterminate 6 and 7 mm nodules are noted in the left upper lobe. Lung torres otherwise clear. No pleural or pericardial effusion large hiatal hernia. No mediastinal or hilar mass or adenopathy. No thoracic aortic aneurysm or dissection is noted. IMPRESSION: Positive for pulmonary embolus. Critical finding relayed to ordering physician by phone at the time of dictation. And a and this is not definitely a single adrenal only check pulmonary is a quite cardiac there as there is the aorta just I were not particularly the 2 public health policy analyst thrombus burden thickened. Small pulmonary nodules left upper lobe. Surveillance recommended. SL:13 04/29/2013 - - Read by: Ghulam Duran Dictated Date/time: 04/30/13 15:59 Electronically Signed by: Ghulam Duran MD 04/30/13 16:01 FINAL REPORT - - Read by: Ghulam Duran Dictated Date/time: 04/29/13 14:18 Electronically Signed by: Ghulam Duran MD 04/29/13 14:22 FINAL REPORT [facility] Brain wo contrast CT Brain wo contrast CT HISTORY: Head trauma. Noncontrast brain CT. Periventricular white matter microvascular ischemic changes, likely chronic. No acute lesion hemorrhage infarct mass or pathologic extra-axial fluid otherwise. The visualized skull and paranasal sinuses are normal. IMPRESSION: Chronic, senescent changes. No acute findings otherwise. SL:13 04/29/2013 - - Read by: Ghulam Duran Dictated Date/time: 04/29/13 14:17 Electronically Signed by: Ghulam Duran MD 04/29/13 14:18 FINAL REPORT [facility] Abdomen 2 views Abdomen 2 views HISTORY: Abdominal pain. ABDOMEN 2 VIEWS: Nonobstructive bowel gas pattern. Large retrocardiac hiatal hernia. SL:04/29/2013 - - Read by: Ghulam Duran Dictated Date/time: 04/29/13 13:01 Electronically Signed by: Ghulam Duran MD 04/29/13 13:01 FINAL REPORT [facility] Chest 2 views Chest 2 views HISTORY: Syncope. Chest 2 views. Mild cardiomegaly. Pulmonary vasculature normal. No acute pulmonary infiltrate. Retrocardiac hiatal hernia is noted. No pleural effusion or pneumothorax. There is a new curvilinear density overlying the right side of the lower mediastinum, having developed since 03/31/2013 I note that a CT chest with contrast has been ordered emergently. Please correlate with that study. SL:04/29/2013 - - Read by: Ghulam Duran Dictated Date/time: 04/29/13 12:53 Electronically Signed by: Ghulam Duran MD 04/29/13 12:56 FINAL REPORT [facility] CHEMISTRY AGAP 15.2 meq/L 10.0 - 20.0 04/16/2013 Normal [facility] eGFR 71 mL/min/1.73m2 04/16/2013 NA 1Result Comment: The eGFR is calculated using [...] from the National Kidney Disease Education Program (NKDEP) which additionally recommends that when the eGFR is used in patients with extremes of body mass index for purposes of drug dosing, the eGFR should be multiplied by the estimated BMI. [facility] CHEMISTRY Calcium Lvl 8.2 mg/dL 8.5 - 10.5 04/16/2013 LOW [facility] CHEMISTRY Creatinine Lvl 0.8 mg/dL 0.5 - 1.4 04/16/2013 Normal [facility] CHEMISTRY CO2 24 meq/L 24 - 32 04/16/2013 Normal [facility] CHEMISTRY BUN 14 mg/dL 7 - 22 04/16/2013 Normal [facility] CHEMISTRY Glucose Lvl 100 mg/dL 70 - 99 04/16/2013 [place] 4Interpretive Data: Adult reference range values reflect the clinical guidelines of the [place] [employer]. [facility] CHEMISTRY Sodium Lvl 144 meq/L 135 - 145 04/16/2013 Normal [facility] CHEMISTRY Chloride Lvl 109 meq/L 95 - 109 04/16/2013 Normal [facility] CHEMISTRY Potassium Lvl 4.2 meq/L 3.5 - 5.1 04/16/2013 Normal [facility] HEMATOLOGY Lymphocytes 22.5 % 20.0 - 40.0 04/16/2013 Normal [facility] HEMATOLOGY Segs 61.0 % 45.0 - 75.0 04/16/2013 Normal [facility] HEMATOLOGY Lymphocytes # 1.2 K/CMM 1.0 - 5.5 04/16/2013 Normal [facility] HEMATOLOGY Basophils 1.1 % 0.0 - 1.0 04/16/2013 [facility] HEMATOLOGY Segs-Bands # 3.2 K/CMM 1.5 - 8.1 04/16/2013 Normal [facility] HEMATOLOGY Monocytes 13.0 % 2.0 - 12.0 04/16/2013 [facility] HEMATOLOGY Eosinophils 2.4 % 0.0 - 4.0 04/16/2013 Normal [facility] HEMATOLOGY Basophils # 0.1 K/CMM 0.0 - 0.2 04/16/2013 Normal [facility] HEMATOLOGY Monocytes # 0.7 K/CMM 0.0 - 0.8 04/16/2013 Normal [facility] HEMATOLOGY Eosinophils # 0.1 K/CMM 0.0 - 0.5 04/16/2013 Normal [facility] HEMATOLOGY RDW 17.1 % 11.5 - 14.5 04/16/2013 [facility] HEMATOLOGY Platelet 483 K/CMM 133 - 450 04/16/2013 [facility] HEMATOLOGY MPV 7.3 fL 7.4 - 10.4 04/16/2013 LOW [facility] HEMATOLOGY RBC 3.29 M/CMM 4.20 - 5.40 04/16/2013 LOW [facility] HEMATOLOGY Hgb 9.5 g/dL 12.0 - 16.0 04/16/2013 LOW [facility] HEMATOLOGY Hct 29.7 % 36.0 - 48.0 04/16/2013 LOW [facility] MCHC 32.0 g/dL 32.0 - 36.0 04/16/2013 Normal [facility] MCV 90.3 fL 81.0 - 99.0 04/16/2013 Normal [facility] MCH 28.9 pg 27.0 - 31.0 04/16/2013 Normal [facility] HEMATOLOGY WBC 5.3 K/CMM 3.7 - 10.4 04/16/2013 Normal [facility] Extremity lower venous doppler bilat US Extremity lower venous doppler bilat US BILATERAL LOWER EXTREMITY VENOUS DOPPLER ULTRASOUND INDICATION: Pain, evaluate for DVT COMPARISON: None FINDINGS: Grayscale, color Doppler, and spectral waveform analysis of the bilateral lower extremity deep venous system was performed. Sonographic evaluation is suboptimal due to patient body habitus. Grossly, the veins are compressible and demonstrate normal spontaneous phasic waveforms, and normal response to augmentation. There is mild subcutaneous edema of the left lower extremity. IMPRESSION: No deep venous thrombosis of the bilateral lower extremities is visualized. SL: 16 04/13/2013 - - Read by: Mike Duran Dictated Date/time: 04/13/13 16:20 Electronically Signed by: Mike Duran MD 04/13/13 16:24 FINAL REPORT [facility] CHEMISTRY AGAP 16.8 meq/L 10.0 - 20.0 04/11/2013 Normal [facility] CHEMISTRY Sodium Lvl 142 meq/L 135 - 145 04/11/2013 Normal [facility] CHEMISTRY Potassium Lvl 3.8 meq/L 3.5 - 5.1 04/11/2013 Normal [facility] CHEMISTRY Chloride Lvl 106 meq/L 95 - 109 04/11/2013 Normal [facility] CHEMISTRY eGFR 71 mL/min/1.73m2 04/11/2013 NA 2Result Comment: The eGFR is calculated using [...] from the National Kidney Disease Education Program (NKDEP) which additionally recommends that when the eGFR is used in patients with extremes of body mass index for purposes of drug dosing, the eGFR should be multiplied by the estimated BMI. [facility] CHEMISTRY Calcium Lvl 8.0 mg/dL 8.5 - 10.5 04/11/2013 LOW [facility] CHEMISTRY CO2 23 meq/L 24 - 32 04/11/2013 LOW [facility] CHEMISTRY Creatinine Lvl 0.8 mg/dL 0.5 - 1.4 04/11/2013 Normal [facility] CHEMISTRY BUN 16 mg/dL 7 - 22 04/11/2013 Normal [facility] CHEMISTRY Glucose Lvl 100 mg/dL 70 - 99 04/11/2013 [place] 5Interpretive Data: Adult reference range values reflect the clinical guidelines of the [place] [employer]. [facility] HEMATOLOGY Lymphocytes 12.4 % 20.0 - 40.0 04/11/2013 LOW [facility] HEMATOLOGY Segs 73.4 % 45.0 - 75.0 04/11/2013 Normal [facility] HEMATOLOGY Monocytes 12.0 % 2.0 - 12.0 04/11/2013 Normal [facility] HEMATOLOGY Eosinophils 1.7 % 0.0 - 4.0 04/11/2013 Normal [facility] HEMATOLOGY Lymphocytes # 0.9 K/CMM 1.0 - 5.5 04/11/2013 [facility] HEMATOLOGY Monocytes # 0.9 K/CMM 0.0 - 0.8 04/11/2013 [facility] HEMATOLOGY Eosinophils # 0.1 K/CMM 0.0 - 0.5 04/11/2013 Normal [facility] HEMATOLOGY Basophils # 0.0 K/CMM 0.0 - 0.2 04/11/2013 Normal [facility] HEMATOLOGY Basophils 0.5 % 0.0 - 1.0 04/11/2013 Normal [facility] HEMATOLOGY Segs-Bands # 5.3 K/CMM 1.5 - 8.1 04/11/2013 Normal [facility] HEMATOLOGY RDW 15.3 % 11.5 - 14.5 04/11/2013 [facility] HEMATOLOGY Platelet 407 K/CMM 133 - 450 04/11/2013 Normal [facility] HEMATOLOGY MPV 7.5 fL 7.4 - 10.4 04/11/2013 Normal [facility] HEMATOLOGY MCH 29.6 pg 27.0 - 31.0 04/11/2013 Normal [facility] HEMATOLOGY RBC 3.22 M/CMM 4.20 - 5.40 04/11/2013 LOW [facility] HEMATOLOGY MCV 90.6 fL 81.0 - 99.0 04/11/2013 Normal [facility] HEMATOLOGY Hgb 9.5 g/dL 12.0 - 16.0 04/11/2013 LOW [facility] HEMATOLOGY Hct 29.1 % 36.0 - 48.0 04/11/2013 [facility] HEMATOLOGY MCHC 32.6 g/dL 32.0 - 36.0 04/11/2013 Normal [facility] HEMATOLOGY WBC 7.2 K/CMM 3.7 - 10.4 04/11/2013 Normal [facility] CHEMISTRY Chloride Lvl 107 meq/L 95 - 109 04/05/2013 Normal [facility] CHEMISTRY Sodium Lvl 143 meq/L 135 - 145 04/05/2013 Normal [facility] CHEMISTRY Potassium Lvl 3.7 meq/L 3.5 - 5.1 04/05/2013 Normal [facility] CHEMISTRY AST 29 unit/L 0 - 37 04/05/2013 Normal [facility] CHEMISTRY Alk Phos 82 unit/L 39 - 136 04/05/2013 Normal [facility] CHEMISTRY Bili Total 0.6 mg/dL 0.2 - 1.3 04/05/2013 Normal [facility] CHEMISTRY ALT 21 unit/L 0 - 65 04/05/2013 Normal [facility] CHEMISTRY Albumin Lvl 2.6 g/dL 3.5 - 5.0 04/05/2013 LOW [facility] CHEMISTRY eGFR 71 mL/min/1.73m2 04/05/2013 NA 3Result Comment: The eGFR is calculated using [...] from the National Kidney Disease Education Program (NKDEP) which additionally recommends that when the eGFR is used in patients with extremes of body mass index for purposes of drug dosing, the eGFR should be multiplied by the estimated BMI. [facility] CHEMISTRY Creatinine Lvl 0.8 mg/dL 0.5 - 1.4 04/05/2013 Normal [facility] CHEMISTRY CO2 25 meq/L 24 - 32 04/05/2013 Normal [facility] CHEMISTRY BUN 16 mg/dL 7 - 22 04/05/2013 Normal [facility] CHEMISTRY Glucose Lvl 105 mg/dL 70 - 99 04/05/2013 [place] 6Interpretive Data: Adult reference range values reflect the clinical guidelines of the [place] [employer]. [facility] CHEMISTRY Calcium Lvl 8.2 mg/dL 8.5 - 10.5 04/05/2013 LOW [facility] CHEMISTRY Total Protein 5.7 g/dL 6.4 - 8.4 04/05/2013 LOW [facility] CHEMISTRY AGAP 14.7 meq/L 10.0 - 20.0 04/05/2013 Normal [facility] CHEMISTRY A/G Ratio 0.8 0.7 - 1.6 04/05/2013 Normal [facility] CHEMISTRY Globulin 3.1 g/dL 2.0 - 4.0 04/05/2013 Normal [facility] CHEMISTRY B/C Ratio 20 6 - 25 04/05/2013 Normal [facility] CHEMISTRY Magnesium Lvl 2.0 mg/dL 1.8 - 2.4 04/05/2013 Normal [facility] CHEMISTRY Phosphorus 2.9 mg/dL 2.5 - 4.5 04/05/2013 Normal [facility] CHEMISTRY Vitamin D, 25-OH, Total 27 ng/mL 30 - 100 04/05/2013 LOW 7Interpretive Data: Reference range is based on recommendations in the Endocrine Society Clinical Practice Guideline (J Clin Endocrinol Metab 2011;96:5581-5492) [facility] CHEMISTRY Ca Ion WB 1.07 mMol/L 1.05 - 1.25 04/05/2013 Normal [facility] CHEMISTRY Ca Norm WB 1.08 mMol/L 1.05 - 1.25 04/05/2013 Normal [facility] HEMATOLOGY PTT 29.0 s 22.9 - 35.8 04/05/2013 Normal 9Interpretive Data: Heparin Therapeutic Range: 57 - 92 Seconds [facility] HEMATOLOGY PT 14.1 s 12.0 - 14.7 04/05/2013 Normal [facility] HEMATOLOGY INR 1.07 0.85 - 1.17 04/05/2013 Normal 8Interpretive Data: RECOMMENDED RANGES FOR PROTIME INR: 2.0-3.0 for most medical and surgical thromboembolic states. 2.5-3.5 for artificial heart valves and recurrent embolism. INR SHOULD BE USED ONLY FOR PATIENTS ON STABLE ANTICOAGULANT THERAPY. [facility] HEMATOLOGY Hct 28.7 % 36.0 - 48.0 04/05/2013 LOW [facility] HEMATOLOGY Hgb 9.5 g/dL 12.0 - 16.0 04/05/2013 LOW [facility] HEMATOLOGY WBC 6.4 K/CMM 3.7 - 10.4 04/05/2013 Normal [facility] HEMATOLOGY RBC 3.20 M/CMM 4.20 - 5.40 04/05/2013 LOW [facility] HEMATOLOGY MPV 8.2 fL 7.4 - 10.4 04/05/2013 Normal [facility] HEMATOLOGY RDW 14.6 % 11.5 - 14.5 04/05/2013 [facility] HEMATOLOGY Platelet 246 K/CMM 133 - 450 04/05/2013 Normal [facility] HEMATOLOGY MCH 29.6 pg 27.0 - 31.0 04/05/2013 Normal [facility] HEMATOLOGY MCHC 32.9 g/dL 32.0 - 36.0 04/05/2013 Normal [facility] HEMATOLOGY MCV 89.9 fL 81.0 - 99.0 04/05/2013 Normal [facility] HEMATOLOGY Basophils # 0.0 K/CMM 0.0 - 0.2 04/05/2013 Normal [facility] HEMATOLOGY Monocytes # 0.9 K/CMM 0.0 - 0.8 04/05/2013 [facility] HEMATOLOGY Lymphocytes # 1.4 K/CMM 1.0 - 5.5 04/05/2013 Normal [facility] HEMATOLOGY Eosinophils # 0.1 K/CMM 0.0 - 0.5 04/05/2013 Normal [facility] HEMATOLOGY Segs 61.2 % 45.0 - 75.0 04/05/2013 Normal [facility] HEMATOLOGY Segs-Bands # 3.9 K/CMM 1.5 - 8.1 04/05/2013 Normal [facility] HEMATOLOGY Basophils 0.6 % 0.0 - 1.0 04/05/2013 Normal [facility] HEMATOLOGY Eosinophils 2.1 % 0.0 - 4.0 04/05/2013 Normal [facility] HEMATOLOGY Monocytes 14.8 % 2.0 - 12.0 04/05/2013 [facility] HEMATOLOGY Lymphocytes 21.3 % 20.0 - 40.0 04/05/2013 Normal [facility] IMMUNOLOGY Prealbumin 8.9 mg/dL 18.0 - 45.0 04/05/2013 LOW [facility] IMMUNOLOGY CRP, High Sensitivity 128.0 mg/L 04/05/2013 NA 10Interpretive Data: Low Risk: <1.0 mg/L Average Risk: 1.0 - 3.0 mg/L High Risk: >3.0 mg/L Inflammation: >10.0 mg/L [facility] HEMATOLOGY Platelet 186 K/CMM 133 - 450 04/04/2013 Normal [facility] HEMATOLOGY MPV 8.5 fL 7.4 - 10.4 04/04/2013 Normal [facility] HEMATOLOGY Hgb 9.1 g/dL 12.0 - 16.0 04/04/2013 LOW [facility] HEMATOLOGY WBC 6.0 K/CMM 3.7 - 10.4 04/04/2013 Normal [facility] HEMATOLOGY RBC 3.07 M/CMM 4.20 - 5.40 04/04/2013 LOW [facility] HEMATOLOGY Hct 27.6 % 36.0 - 48.0 04/04/2013 LOW [facility] HEMATOLOGY MCH 29.7 pg 27.0 - 31.0 04/04/2013 Normal [facility] HEMATOLOGY MCV 89.9 fL 81.0 - 99.0 04/04/2013 Normal [facility] HEMATOLOGY RDW 14.8 % 11.5 - 14.5 04/04/2013 [facility] HEMATOLOGY MCHC 33.0 g/dL 32.0 - 36.0 04/04/2013 Normal [facility] HEMATOLOGY Monocytes # 1.0 K/CMM 0.0 - 0.8 04/04/2013 [facility] HEMATOLOGY Lymphocytes # 1.1 K/CMM 1.0 - 5.5 04/04/2013 Normal [facility] HEMATOLOGY Segs-Bands # 3.8 K/CMM 1.5 - 8.1 04/04/2013 Normal [facility] HEMATOLOGY Monocytes 16.0 % 2.0 - 12.0 04/04/2013 [facility] HEMATOLOGY Basophils 0.8 % 0.0 - 1.0 04/04/2013 Normal [facility] HEMATOLOGY Eosinophils 1.7 % 0.0 - 4.0 04/04/2013 Normal [facility] HEMATOLOGY Eosinophils # 0.1 K/CMM 0.0 - 0.5 04/04/2013 Normal [facility] HEMATOLOGY Basophils # 0.0 K/CMM 0.0 - 0.2 04/04/2013 Normal [facility] HEMATOLOGY Segs 63.5 % 45.0 - 75.0 04/04/2013 Normal [facility] HEMATOLOGY Lymphocytes 18.0 % 20.0 - 40.0 04/04/2013 LOW [facility] CHEMISTRY Sodium Lvl 139 meq/L 135 - 145 04/03/2013 Normal [facility] CHEMISTRY Potassium Lvl 3.9 meq/L 3.5 - 5.1 04/03/2013 Normal [facility] CHEMISTRY Chloride Lvl 106 meq/L 95 - 109 04/03/2013 Normal [facility] CHEMISTRY eGFR 61 mL/min/1.73m2 04/03/2013 NA 2Result Comment: The eGFR is calculated using [...] from the National Kidney Disease Education Program (NKDEP) which additionally recommends that when the eGFR is used in patients with extremes of body mass index for purposes of drug dosing, the eGFR should be multiplied by the estimated BMI. [facility] CHEMISTRY Calcium Lvl 8.3 mg/dL 8.5 - 10.5 04/03/2013 LOW [facility] CHEMISTRY CO2 23 meq/L 24 - 32 04/03/2013 LOW [facility] CHEMISTRY BUN 19 mg/dL 7 - 22 04/03/2013 Normal [facility] CHEMISTRY Creatinine Lvl 0.9 mg/dL 0.5 - 1.4 04/03/2013 Normal [facility] CHEMISTRY Glucose Lvl 118 mg/dL 70 - 99 04/03/2013 [place] 5Interpretive Data: Adult reference range values reflect the clinical guidelines of the [place] [employer]. [facility] CHEMISTRY AGAP 13.9 meq/L 10.0 - 20.0 04/03/2013 Normal [facility] HEMATOLOGY RDW 14.8 % 11.5 - 14.5 04/03/2013 HI [facility] HEMATOLOGY Platelet 199 K/CMM 133 - 450 04/03/2013 Normal [facility] HEMATOLOGY MPV 8.0 fL 7.4 - 10.4 04/03/2013 Normal [facility] HEMATOLOGY WBC 8.4 K/CMM 3.7 - 10.4 04/03/2013 Normal [facility] HEMATOLOGY RBC 3.51 M/CMM 4.20 - 5.40 04/03/2013 LOW [facility] HEMATOLOGY Hgb 10.2 g/dL 12.0 - 16.0 04/03/2013 LOW [facility] HEMATOLOGY Hct 31.5 % 36.0 - 48.0 04/03/2013 [facility] HEMATOLOGY MCV 89.7 fL 81.0 - 99.0 04/03/2013 Normal [facility] HEMATOLOGY MCH 29.1 pg 27.0 - 31.0 04/03/2013 Normal [facility] HEMATOLOGY MCHC 32.5 g/dL 32.0 - 36.0 04/03/2013 Normal [facility] HEMATOLOGY Monocytes # 1.1 K/CMM 0.0 - 0.8 04/03/2013 [facility] HEMATOLOGY Lymphocytes # 0.9 K/CMM 1.0 - 5.5 04/03/2013 [facility] HEMATOLOGY Segs-Bands # 6.3 K/CMM 1.5 - 8.1 04/03/2013 Normal [facility] HEMATOLOGY Eosinophils # 0.1 K/CMM 0.0 - 0.5 04/03/2013 Normal [facility] HEMATOLOGY Basophils 0.4 % 0.0 - 1.0 04/03/2013 Normal [facility] HEMATOLOGY Lymphocytes 10.8 % 20.0 - 40.0 04/03/2013 [facility] HEMATOLOGY Segs 74.6 % 45.0 - 75.0 04/03/2013 Normal [facility] HEMATOLOGY Basophils # 0.0 K/CMM 0.0 - 0.2 04/03/2013 Normal [facility] HEMATOLOGY Eosinophils 0.7 % 0.0 - 4.0 04/03/2013 Normal [facility] HEMATOLOGY Monocytes 13.5 % 2.0 - 12.0 04/03/2013 [facility] HEMATOLOGY Eosinophils # 0.0 K/CMM 0.0 - 0.5 04/02/2013 Normal [facility] HEMATOLOGY Basophils # 0.0 K/CMM 0.0 - 0.2 04/02/2013 Normal [facility] HEMATOLOGY Basophils 0.5 % 0.0 - 1.0 04/02/2013 Normal [facility] HEMATOLOGY Segs-Bands # 5.8 K/CMM 1.5 - 8.1 04/02/2013 Normal [facility] HEMATOLOGY Lymphocytes # 0.9 K/CMM 1.0 - 5.5 04/02/2013 LOW [facility] HEMATOLOGY Monocytes # 1.0 K/CMM 0.0 - 0.8 04/02/2013 [facility] HEMATOLOGY Lymphocytes 11.2 % 20.0 - 40.0 04/02/2013 LOW [facility] HEMATOLOGY Monocytes 13.4 % 2.0 - 12.0 04/02/2013 [facility] HEMATOLOGY Eosinophils 0.3 % 0.0 - 4.0 04/02/2013 Normal [facility] HEMATOLOGY Segs 74.6 % 45.0 - 75.0 04/02/2013 Normal [facility] HEMATOLOGY WBC 7.8 K/CMM 3.7 - 10.4 04/02/2013 Normal [facility] HEMATOLOGY RBC 3.51 M/CMM 4.20 - 5.40 04/02/2013 [facility] HEMATOLOGY Hgb 10.4 g/dL 12.0 - 16.0 04/02/2013 [facility] HEMATOLOGY Hct 32.0 % 36.0 - 48.0 04/02/2013 [facility] HEMATOLOGY MCV 91.1 fL 81.0 - 99.0 04/02/2013 Normal [facility] HEMATOLOGY MCH 29.6 pg 27.0 - 31.0 04/02/2013 Normal [facility] HEMATOLOGY MCHC 32.4 g/dL 32.0 - 36.0 04/02/2013 Normal [facility] HEMATOLOGY RDW 15.3 % 11.5 - 14.5 04/02/2013 [facility] HEMATOLOGY Platelet 184 K/CMM 133 - 450 04/02/2013 Normal [facility] HEMATOLOGY MPV 8.4 fL 7.4 - 10.4 04/02/2013 Normal [facility] CHEMISTRY AGAP 16.2 meq/L 10.0 - 20.0 04/01/2013 Normal [facility] CHEMISTRY CO2 21 meq/L 24 - 32 04/01/2013 [facility] CHEMISTRY Creatinine Lvl 0.8 mg/dL 0.5 - 1.4 04/01/2013 Normal [facility] CHEMISTRY Calcium Lvl 8.6 mg/dL 8.5 - 10.5 04/01/2013 Normal [facility] CHEMISTRY BUN 35 mg/dL 7 - 22 04/01/2013 [facility] CHEMISTRY Glucose Lvl 118 mg/dL 70 - 99 04/01/2013 [place] 6Interpretive Data: Adult reference range values reflect the clinical guidelines of the [place] [employer]. [facility] CHEMISTRY eGFR 71 mL/min/1.73m2 04/01/2013 NA 3Result Comment: The eGFR is calculated using [...] from the National Kidney Disease Education Program (NKDEP) which additionally recommends that when the eGFR is used in patients with extremes of body mass index for purposes of drug dosing, the eGFR should be multiplied by the estimated BMI. [facility] CHEMISTRY Sodium Lvl 145 meq/L 135 - 145 04/01/2013 Normal [facility] CHEMISTRY Chloride Lvl 112 meq/L 95 - 109 04/01/2013 HI [facility] CHEMISTRY Potassium Lvl 4.2 meq/L 3.5 - 5.1 04/01/2013 Normal [facility] HEMATOLOGY RBC Morph Normal (04/01/2013 06:13:00) 04/01/2013 Normal [facility] HEMATOLOGY Plt Morph Normal (04/01/2013 06:13:00) 04/01/2013 Normal [facility] Hip min 2 views Hip min 2 views Left hip multiple fluoroscopic spot views. FINDINGS: Multiple fluoroscopic spot views demonstrate stabilization of the femoral neck fracture by dynamic compression screw and intramedullary daphne. SL:13 04/01/2013 - - Read by: Daniel Walker Dictated Date/time: 04/01/13 12:37 Electronically Signed by: Daniel Walker MD 04/01/13 12:38 FINAL REPORT [facility] Shoulder series Shoulder series Left shoulder multiple fluoroscopic spot views. A fluoroscopic procedure was performed outside the radiology department. This report is generated for hospital billing purposes only. SL:13 04/01/2013 - - Read by: Daniel Walker Dictated Date/time: 04/07/13 15:06 Electronically Signed by: Daniel Walker MD 04/07/13 15:06 FINAL REPORT [facility] BLOOD BANK RESULTS ABO/Rh A POS 03/31/2013 Unknown [facility] BLOOD BANK RESULTS RBC product Product available 1 (03/31/2013 17:00:00) 03/31/2013 Normal 1Result Comment: 03/31/2013 18:54 [id number] notified christiana [facility] BLOOD BANK RESULTS Antibody Scrn Negative (03/31/2013 17:00:00) 03/31/2013 Normal [facility] URINALYSIS UA Protein 30 mg/dL *ABN* (03/31/2013 16:00:00) Negative 03/31/2013 ABN [facility] URINALYSIS UA Spec Grav 1.033 <=1.030 03/31/2013 [facility] URINALYSIS UA pH 5.0 5.0 - 8.0 03/31/2013 Normal [facility] URINALYSIS UA Ketones Trace mg/dL *ABN* (03/31/2013 16:00:00) Negative 03/31/2013 ABN [facility] URINALYSIS UA Glucose Negative mg/dL *NA* (03/31/2013 16:00:00) Negative 03/31/2013 NA [facility] URINALYSIS UA Turbidity Marked *ABN* (03/31/2013 16:00:00) Clear 03/31/2013 ABN [facility] URINALYSIS UA Urobilinogen <=1.0 mg/dL
*NA*
(03/31/2013 16:00:00) <sup> </sup> 0.1 - 1.0 03/31/2013 NA [facility] URINALYSIS UA Color Nimo 03/31/2013 NA [facility] URINALYSIS UA WBC 4 /HPF 0 - 5 03/31/2013 Normal [facility] URINALYSIS UA RBC 2 /HPF 0 - 2 03/31/2013 Normal [facility] URINALYSIS UA Bacteria Many /HPF *ABN* (03/31/2013 16:00:00) None Seen 03/31/2013 ABN [facility] URINALYSIS UA Blood Negative (03/31/2013 16:00:00) Negative 03/31/2013 Normal [facility] URINALYSIS UA Bili Negative *NA* (03/31/2013 16:00:00) Negative 03/31/2013 NA [facility] URINALYSIS UA Leuk Est Trace *ABN* (03/31/2013 16:00:00) Negative 03/31/2013 ABN [facility] URINALYSIS UA Nitrite Negative (03/31/2013 16:00:00) Negative 03/31/2013 Normal [facility] URINALYSIS UA Sq Epi Occasional /LPF *NA* (03/31/2013 16:00:00) Few 03/31/2013 NA [facility] URINALYSIS UA Mucus Many /LPF *ABN* (03/31/2013 16:00:00) None Seen 03/31/2013 ABN [facility] CHEMISTRY Chloride Lvl 110 meq/L 95 - 109 03/31/2013 HI [facility] CHEMISTRY Potassium Lvl 4.0 meq/L 3.5 - 5.1 03/31/2013 Normal [facility] CHEMISTRY Sodium Lvl 144 meq/L 135 - 145 03/31/2013 Normal [facility] CHEMISTRY eGFR 54 mL/min/1.73m2 03/31/2013 NA 4Result Comment: The eGFR is calculated using the [...] from the National Kidney Disease Education Program (NKDEP) which additionally recommends that when the eGFR is used in patients with extremes of body mass index for purposes of drug dosing, the eGFR should be multiplied by the estimated BMI. [facility] CHEMISTRY Bili Total 0.4 mg/dL 0.2 - 1.3 03/31/2013 Normal [facility] CHEMISTRY AST 17 unit/L 0 - 37 03/31/2013 Normal [facility] CHEMISTRY Glucose Lvl 113 mg/dL 70 - 99 03/31/2013 [place] 7Interpretive Data: Adult reference range values reflect the clinical guidelines of the [employer] [employer]. [facility] CHEMISTRY Total Protein 7.0 g/dL 6.4 - 8.4 03/31/2013 Normal [facility] CHEMISTRY ALT 20 unit/L 0 - 65 03/31/2013 Normal [facility] CHEMISTRY Alk Phos 84 unit/L 39 - 136 03/31/2013 Normal [facility] CHEMISTRY Albumin Lvl 4.0 g/dL 3.5 - 5.0 03/31/2013 Normal [facility] CHEMISTRY CO2 23 meq/L 24 - 32 03/31/2013 LOW [facility] CHEMISTRY Calcium Lvl 8.8 mg/dL 8.5 - 10.5 03/31/2013 Normal [facility] CHEMISTRY BUN 36 mg/dL 7 - 22 03/31/2013 [facility] CHEMISTRY Creatinine Lvl 1.0 mg/dL 0.5 - 1.4 03/31/2013 Normal [facility] CHEMISTRY AGAP 15.0 meq/L 10.0 - 20.0 03/31/2013 Normal [facility] CHEMISTRY A/G Ratio 1.3 0.7 - 1.6 03/31/2013 Normal [facility] CHEMISTRY Globulin 3.0 g/dL 2.0 - 4.0 03/31/2013 Normal [facility] CHEMISTRY B/C Ratio 36 6 - 25 03/31/2013 HI [facility] HEMATOLOGY PTT 26.2 s 22.9 - 35.8 03/31/2013 Normal 9Interpretive Data: Heparin Therapeutic Range: 57 - 92 Seconds [facility] HEMATOLOGY PT 13.7 s 12.0 - 14.7 03/31/2013 Normal [facility] HEMATOLOGY INR 1.03 0.85 - 1.17 03/31/2013 Normal 8Interpretive Data: RECOMMENDED RANGES FOR PROTIME INR: 2.0-3.0 for most medical and surgical thromboembolic states. 2.5-3.5 for artificial heart valves and recurrent embolism. INR SHOULD BE USED ONLY FOR PATIENTS ON STABLE ANTICOAGULANT THERAPY. [facility] Hip min 2 views Hip min 2 views Left hip 3-view series, Mar 31, 2013 02:54:00 PM CLINICAL HISTORY: Fall; Trauma TECHNIQUE: Routine internally and external rotated views of the left hip were obtained. COMPARISON: None FINDINGS: Left hip intertrochanter moderately displaced fracture is present. IMPRESSION: Left hip intertrochanteric fracture. SL: 03/31/2013 - - Read by: Sherri Goddard Dictated Date/time: 03/31/13 15:57 Electronically Signed by: Sherri Goddard MD 03/31/13 15:58 FINAL REPORT [facility] Femur series Femur series Left femur series Mar 31, 2013 02:54:00 PM CLINICAL HISTORY: Trauma ; See Clinic Indication TECHNIQUE: Routine AP and lateral views of the left femur were obtained. COMPARISON: None FINDINGS: Left proximal femoral intertrochanteric fracture is present. Severe right knee osteoarthritis is present. No knee joint effusion is present. IMPRESSION: Left proximal femoral intertrochanteric fracture. SL: 03/31/2013 - - Read by: Sherri Goddard Dictated Date/time: 03/31/13 15:56 Electronically Signed by: Sherri Goddard MD 03/31/13 15:57 FINAL REPORT [facility] Chest 1view Chest 1view Chest one view. COMPARISON: No priors. FINDINGS: Limited AP portable study. Clothing artifact. Mild prominence of the interstitium. No consolidation or effusion. Cardiac silhouette size is within normal limits. 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 Left humeral fracture is noted. Please see report for left shoulder series for more detailed discussion. SL:03/31/2013 - - Read by: Daniel Walker Dictated Date/time: 03/31/13 15:50 Electronically Signed by: Daniel Walker MD 03/31/13 15:51 FINAL REPORT [facility] Shoulder series Shoulder series LEFT SHOULDER 3 VIEWS: FINDINGS: Impaction fracture of the left humeral neck is visualized. There is mild medial and posterior displacement of the shaft of the humerus relative to the humeral head. The glenohumeral articulation is noted to be preserved. SL:03/31/2013 - - Read by: Daniel Walker Dictated Date/time: 03/31/13 15:51 Electronically Signed by: Daniel Walker MD 03/31/13 15:53 FINAL REPORT [facility] Vital Signs Vital Sign Value Date Comments Source Systolic (mm Hg) 141 11/22/2016 [facility] Diastolic (mm Hg) 76 11/22/2016 [facility] Respitory Rate 16 11/22/2016 [facility] Respitory Rate 14 11/22/2016 [facility] Systolic (mm Hg) 151 11/22/2016 [facility] Diastolic (mm Hg) 68 11/22/2016 [facility] Respitory Rate 13 11/22/2016 [facility] Systolic (mm Hg) 169 11/22/2016 [facility] Diastolic (mm Hg) 76 11/22/2016 [facility] Heart Rate 53 11/19/2016 [facility] Temperature Oral (F) 97.6 F 11/19/2016 [facility] Height 172.72 cm 11/19/2016 [facility] BMI Calculated 22.86 11/19/2016 [facility] Weight 68.182 11/19/2016 [facility] Temperature Oral (F) 98.0 F 11/13/2016 [facility] Respitory Rate 18 11/13/2016 [facility] Systolic (mm Hg) 145 11/13/2016 [facility] Diastolic (mm Hg) 78 11/13/2016 [facility] Heart Rate 68 11/13/2016 [facility] Respitory Rate 18 11/13/2016 [facility] Systolic (mm Hg) 170 11/13/2016 [facility] Diastolic (mm Hg) 76 11/13/2016 [facility] Heart Rate 92 11/13/2016 [facility] Systolic (mm Hg) 136 11/13/2016 [facility] Diastolic (mm Hg) 78 11/13/2016 [facility] Heart Rate 83 11/13/2016 [facility] Respitory Rate 18 11/13/2016 [facility] BMI Calculated 21.33 11/13/2016 [facility] Weight 63.636 11/13/2016 [facility] Height 172.72 cm 11/13/2016 [facility] Temperature Oral (F) 97.5 F 11/13/2016 [facility] Diastolic (mm Hg) 83 05/05/2013 [facility] Respitory Rate 19 05/05/2013 [facility] Heart Rate 89 05/05/2013 [facility] Systolic (mm Hg) 136 05/05/2013 [facility] Temperature Oral (F) 97.6 F 05/05/2013 [facility] Respitory Rate 19 05/05/2013 [facility] Heart Rate 79 05/05/2013 [facility] Temperature Oral (F) 97.7 F 05/05/2013 [facility] Diastolic (mm Hg) 78 05/05/2013 [facility] Systolic (mm Hg) 147 05/05/2013 [facility] Weight 72.727 04/29/2013 [facility] Height 170.18 cm 04/29/2013 [facility] Respitory Rate 16 04/16/2013 [facility] Heart Rate 97 04/16/2013 [facility] Temperature Oral (F) 97.5 F 04/16/2013 [facility] Systolic (mm Hg) 162 04/16/2013 [facility] Diastolic (mm Hg) 88 04/16/2013 [facility] Heart Rate 85 04/16/2013 [facility] Respitory Rate 20 04/16/2013 [facility] Temperature Oral (F) 98 F 04/16/2013 [facility] Systolic (mm Hg) 129 04/16/2013 [facility] Diastolic (mm Hg) 81 04/16/2013 [facility] Diastolic (mm Hg) 76 04/15/2013 [facility] Systolic (mm Hg) 129 04/15/2013 [facility] Heart Rate 90 04/15/2013 [facility] Respitory Rate 18 04/15/2013 [facility] Temperature Oral (F) 97.9 F 04/15/2013 [facility] Height 172.7 cm 04/04/2013 [facility] Weight 81.8 04/04/2013 [facility] Weight 81.8 04/04/2013 [facility] Height 172.7 cm 04/04/2013 [facility] Systolic (mm Hg) 119 04/04/2013 [facility] Respitory Rate 18 04/04/2013 [facility] Heart Rate 88 04/04/2013 [facility] Diastolic (mm Hg) 73 04/04/2013 [facility] Temperature Oral (F) 98.5 F 04/04/2013 [facility] Respitory Rate 18 04/04/2013 [facility] Heart Rate 91 04/04/2013 [facility] Temperature Oral (F) 98.3 F 04/04/2013 [facility] Respitory Rate 18 04/04/2013 [facility] Diastolic (mm Hg) 75 04/04/2013 [facility] Systolic (mm Hg) 145 04/04/2013 [facility] Heart Rate 91 04/04/2013 [facility] Systolic (mm Hg) 129 04/04/2013 [facility] Diastolic (mm Hg) 72 04/04/2013 [facility] Temperature Oral (F) 99.2 F 04/04/2013 [facility] Weight 81.8 04/01/2013 [facility] Weight 81.818 03/31/2013 [facility] Height 172.72 cm 03/31/2013 [facility] Encounters Location Location Details Encounter Type Encounter Number Reason For Visit Attending Provider ADM Date DC Date Status Source [facility] Inpatient [id number] CHALINO [id number] 03/31/2013 04/04/2013 Active [facility] [place] [id number] LEFT HUMERUS AND HIP FX DEBRA RAHMAN JR 04/04/2013 04/16/2013 Active [facility] Inpatient [id number] PE YURI SINGH 04/29/2013 05/05/2013 Active [facility] Emergency [id number] Namrata Cash 11/13/2016 11/14/2016 [facility] Day Surgery [id number] Rodri Simpson 11/22/2016 11/22/2016 [facility] Procedures Procedure Code Date Perfomer Comments Source Hysterectomy [id number] [facility] Neck procedure [id number] [facility] Operation [id number] [facility] ORIF - Open reduction and internal fixation of fracture [id number] [facility] Hysterectomy [id number] [facility] Neck procedure [id number] [facility]
--- OUTSIDE RECORDS SUMMARY | 2018-08-01 16:54 | XMS REPORT | Summary of Care ---
Author Author [facility] Organization [facility] Address Unknown Phone Unavailable Encounter ARELI Hull(JOAN) [id number] Date(s): 11/13/16 - 11/13/16 [facility] [address] [place] [address]- Discharge Diagnosis: Closed Colles' fracture Discharge Diagnosis: Accidental fall Discharge Disposition: Home or Self Care Attending Physician: Namrata Cash MD Vital Signs 1 2 3 Most recent to oldest [Reference Range]: 172.72 cm (11/13/16 2:24 PM) Height 98.0 DegF (11/13/16 6:55 PM) 97.5 DegF (11/13/16 2:24 PM) Temperature Oral [96.4-99.1 DegF] 145/78 mmHg *HI* (11/13/16 6:55 PM) 170/76 mmHg *HI* (11/13/16 6:00 PM) 136/78 mmHg (11/13/16 5:00 PM) Blood Pressure [90-140/60-90 mmHg] 18 BRMIN (11/13/16 6:55 PM) 18 BRMIN (11/13/16 6:00 PM) 18 BRMIN (11/13/16 5:00 PM) Respiratory Rate [14-20 BRMIN] 68 bpm (11/13/16 6:55 PM) 92 bpm (11/13/16 6:00 PM) 83 bpm (11/13/16 5:00 PM) Peripheral Pulse Rate [60-100 bpm] 63.636 kg (11/13/16 2:24 PM) Weight 21.33 m2 (11/13/16 2:24 PM) Body Mass Index Problem List Condition Effective Dates Status Health Status Informant Hiatal Resolved hernia(Confirmed) Hypertension(Confirm Resolved ed) MRSA(Confirmed)1 Active Osteoarthritis(Confi Resolved rmed) Peptic ulcer Resolved disease(Confirmed) 1Problem added by Discern Expert. Allergies, Adverse Reactions, Alerts Substance Reaction Severity Status NKDA Active Medications morphine Sulfate 2 mg, 1 mL, Route: IVP, Drug form: INJ, ONCE, Dosing Weight 63.636, kg, Priority : STAT, Start date: 11/13/16 14:49:00 CDT, Stop date: 11/13/16 14:49:00 CDT Notes: (Same as:MORPhine Sulfate) Start Date: 11/13/16 Stop Date: 11/13/16 Status: Completed morphine Sulfate 4 mg, Route: IVP, ONCE, Dosing Weight 63.636, kg, Priority: STAT, Start date: 17:50:00 CDT, Stop date: 11/13/16 17:50:00 CDT Start Date: 11/13/16 Stop Date: 11/13/16 Status: Completed ondansetron 4 mg, 2 mL, Route: IVP, Drug form: INJ, ONCE, Dosing Weight 63.636, kg, Priority : STAT, Start date: 11/13/16 14:49:00 CDT, Stop date: 11/13/16 14:49:00 CDT Notes: (Same as: Zofran) MEDICATION WASTE Product Size: 4 mgProduct Was ras: ___ mg Start Date: 11/13/16 Stop Date: 11/13/16 Status: Completed Saline Flush 0.9% 10 mL, Route: IVP, Drug Form: INJ, Dosing Weight 63.636, kg, PRN, PRN Line Flush , Start date: 11/13/16 14:49:00 CDT, Duration: 30 day, Stop date: 12/13/16 14:48 :00 CDT Notes: (Same as: BD Posiflush) Start Date: 11/13/16 Stop Date: 11/13/16 Status: Discontinued Ultram 50 mg oral tablet 50 mg=1 tab, PO, Q4H, PRN pain, X 3 day, # 20 tab, 0 Refill(s) Start Date: 11/13/16 Stop Date: 11/16/16 Status: Ordered Results ELECTROLYTES Most recent to 1 oldest [Reference Range]: Sodium Lvl [135-145 141 mEq/L mEq/L] (11/13/16 4:02 PM) Potassium Lvl 3.8 mEq/L [3.5-5.1 mEq/L] (11/13/16 4:02 PM) Chloride Lvl [95-109 107 mEq/L mEq/L] (11/13/16 4:02 PM) CO2 [24-32 mEq/L] 26 mEq/L (11/13/16 4:02 PM) AGAP [10.0-20.0 11.8 mEq/L mEq/L] (11/13/16 4:02 PM) CHEM PANEL Most recent to 1 oldest [Reference Range]: Creatinine Lvl 1.00 mg/dL [0.50-1.40 mg/dL] (11/13/16 4:02 PM) eGFR 53 mL/min/1.73m2 1 *NA* (11/13/16 4:02 PM) BUN [7-22 mg/dL] 41 mg/dL *HI* (11/13/16 4:02 PM) Glucose Lvl [70-99 100 mg/dL mg/dL] *HI* (11/13/16 4:02 PM) Calcium Lvl 9.3 mg/dL [8.5-10.5 mg/dL] (11/13/16 4:02 PM) 1Result Comment: The eGFR is calculated using [...] be mul tiplied by the estimated BMI. HEMATOLOGY Most recent to 1 oldest [Reference Range]: WBC [3.7-10.4 K/CMM] 8.9 K/CMM (11/13/16 4:02 PM) RBC [4.20-5.40 4.67 M/CMM M/CMM] (11/13/16 4:02 PM) Hgb [12.0-16.0 g/dL] 14.1 g/dL (11/13/16 4:02 PM) Hct [36.0-48.0 %] 41.8 % (11/13/16 4:02 PM) MCV [80.0-98.0 fL] 89.4 fL (11/13/16 4:02 PM) MCH [27.0-31.0 pg] 30.2 pg (11/13/16 4:02 PM) MCHC [32.0-36.0 33.8 g/dL g/dL] (11/13/16 4:02 PM) RDW [11.5-14.5 %] 13.8 % (11/13/16 4:02 PM) Platelet [133-450 199 K/CMM K/CMM] (11/13/16 4:02 PM) MPV [7.4-10.4 fL] 9.2 fL (11/13/16 4:02 PM) Segs [45.0-75.0 %] 80.7 % *HI* (11/13/16 4:02 PM) Lymphocytes 12.2 % [20.0-40.0 %] *LOW* (11/13/16 4:02 PM) Monocytes [2.0-12.0 6.1 % %] (11/13/16 4:02 PM) Eosinophils [0.0-4.0 0.4 % %] (11/13/16 4:02 PM) Basophils [0.0-1.0 0.6 % %] (11/13/16 4:02 PM) Segs-Bands # 7.2 K/CMM [1.5-8.1 K/CMM] (11/13/16 4:02 PM) Lymphocytes # 1.1 K/CMM [1.0-5.5 K/CMM] (11/13/16 4:02 PM) Monocytes # [0.0-0.8 0.5 K/CMM K/CMM] (11/13/16 4:02 PM) Basophils # [0.0-0.2 0.1 K/CMM K/CMM] (11/13/16 4:02 PM) PT [12.0-14.7 14.1 seconds seconds] (11/13/16 4:02 PM) INR [0.85-1.17] 1.07 (11/13/16 4:02 PM) PTT [22.9-35.8 28.2 seconds seconds] (11/13/16 4:02 PM) Immunizations No data available for this section Procedures Procedure Date Related Diagnosis Body Site Hysterectomy Neck procedure Social History Social History Type Response Smoking Status Never smoker; Exposure to Tobacco Smoke None; Cigarette Smoking Last 365 Days No; Reg Smoking Cessation Counseling No Assessment and Plan No data available for this section
--- OUTSIDE RECORDS SUMMARY | 2018-08-01 16:54 | XMS REPORT | CCD ---
Author Author Auto Generated Organization [facility] Address Unknown Phone Unavailable Care Team Providers Care Land Appraiser Name Role Phone Sudhir Cleaning CP Allergies, Adverse Reactions, Alerts Substance Reaction Status NKDA Active Problem List Condition Effective Dates Status Cataract Resolved Hiatal hernia Resolved Osteoarthritis Resolved Peptic ulcer disease Resolved Medications Medication Instructions Start Date End Date Status labetalol 10 mg, Route: IVP, Drug form: INJ, 04/01/2013 04/01/2013 Completed ONCE, Dosing Weight 81.8, kg, Start date: 04/01/13 9:12:00, Stop date: 04/01/13 9:12:00 NS 1,000 mL 1,000 mL, Rate: 100 ml/hr, Infuse 03/31/2013 04/02/2013 Discontinued over: 10 hr, Route: IV, Dosing Weight 81.818 kg, Total Volume: 1,000, Start date: 03/31/13 18:24:00, Duration: 30 day, Stop date: 04/30/13 18:23:00 Prilosec OTC 20 mg 20 mg, 1 tab, PO, Daily, 03/31/2013 Suspended oral enteric coated Substitution Allowed tablet Colace 100 mg oral 100 mg, 1 cap, Route: PO, Drug 04/01/2013 04/04/2013 Discontinued capsule form: CAP, BID, Dosing Weight 81.8, kg, Start date: 04/01/13 17:00:00, Duration: 30 day, Stop date: 05/01/13 9:00:00 Aleve 220 mg oral 220 mg, 1 tab, PO, Q8H, PRN, as 03/31/2013 Suspended tablet needed for arthritis, Substitution Allowed acetaminophen-oxycod 1 tab, Route: PO, Drug Form: TAB, 04/01/2013 04/01/2013 Discontinued one 325 mg-5 mg oral Dosing Weight 81.8, kg, Q4H, PRN tablet Pain Score 1-3, Start date: 04/01/13 8:30:00, Duration: 30 day, Stop date: 05/01/13 8:29:00 acetaminophen-oxycod 2 tab, Route: PO, Drug Form: TAB, 04/01/2013 04/01/2013 Discontinued one 325 mg-5 mg oral Dosing Weight 81.8, kg, Q4H, PRN tablet Pain Score 4-6, Start date: 04/01/13 8:30:00, Duration: 30 day, Stop date: 05/01/13 8:29:00 fentanyl 25 microgram, 0.5 mL, Route: IVP, 04/01/2013 04/01/2013 Completed Drug form: INJ, Q5Min, Dosing Weight 81.8, kg, PRN Pain Score 4-6, Start date: 04/01/13 8:30:00, Duration: 4 doses or times, Stop date: Limited # of times hydromorphone 0.5 mg, 0.5 mL, Route: IVP, Drug 04/01/2013 04/01/2013 Discontinued form: SOLN, Q5Min, Dosing Weight 81.8, kg, PRN Pain Score 7-10, Start date: 04/01/13 8:30:00, Duration: 5 doses or times, Stop date: Limited # of times flumazenil 0.2 mg, 2 mL, Route: IVP, Drug 04/01/2013 04/01/2013 Discontinued form: INJ, PRN, Dosing Weight 81.8, kg, PRN Benzodiazepine Reversal, Initial dose, Start date: 04/01/13 8:30:00, Duration: 30 day, Stop date: 05/01/13 8:29:00 ondansetron 4 mg, 2 mL, Route: IVP, Drug form: 04/01/2013 04/01/2013 Completed INJ, ONCE, Dosing Weight 81.8, kg, PRN Nausea & Vomiting, Start date: 04/01/13 8:30:00 naloxone 0.04 mg, 0.1 mL, Route: IVP, Drug 04/01/2013 04/01/2013 Discontinued form: INJ, Q2MIN, Dosing Weight 81.8, kg, PRN Narcotic Reversal, Start date: 04/01/13 8:30:00, Duration: 8 doses or times, Stop date: Limited # of times Lactated Ringers 1,000 mL, Rate: 25 ml/hr, Infuse 04/01/2013 04/01/2013 Discontinued Injection IV 1000 mL over: 40 hr, Route: IV, Dosing Weight 81.8 kg, Total Volume: 1,000, Start date: 04/01/13 7:41:00, Duration: 30 day, Stop date: 05/01/13 7:40:00 Cosopt ophthalmic 1 drp, BOTH EYES, BID, Substitute 03/31/2013 Suspended solution Allowed Saline Flush 0.9% 5 ml, Route: IVP, Drug Form: INJ, 03/31/2013 04/04/2013 Discontinued Dosing Weight 81.818, kg, PRN, PRN Line Flush, Start date: 03/31/13 18:34:00, Duration: 30 day, Stop date: 04/30/13 18:33:00 Dextrose 5% with 1,000 mL, Rate: 100 ml/hr, Infuse 03/31/2013 03/31/2013 Deleted 0.45% NaCl IV 1000 over: 10 hr, Route: IV, Dosing mL Weight 81.818 kg, Total Volume: 1,000, Start date: 03/31/13 18:34:00, Duration: 30 day, Stop date: 04/30/13 18:33:00 morphine Sulfate 4 mg, Route: IVP, Q3H, Dosing 03/31/2013 03/31/2013 Deleted Weight 81.818, kg, PRN Pain Score 7-10, Start date: 03/31/13 18:34:00, Duration: 30 day, Stop date: 04/30/13 18:33:00 ondansetron 4 mg, Route: IVP, Q8H, Dosing 03/31/2013 03/31/2013 Deleted Weight 81.818, kg, PRN Nausea & Vomiting, Start date: 03/31/13 18:34:00, Duration: 30 day, Stop date: 04/30/13 18:33:00 [place] 5/325 oral 1 tab, Route: PO, Drug Form: TAB, 04/01/2013 04/04/2013 Discontinued tablet Dosing Weight 81.8, kg, Q6H, PRN as needed for pain, Start date: 04/01/13 11:50:00, Duration: 30 day, Stop date: 05/01/13 11:49:00 latanoprost 1 drp, BOTH EYES, Bedtime, 03/31/2013 Suspended ophthalmic 0.005% Substitute Allowed solution hydromorphone 0.5 mg, 0.5 mL, Route: IV, Drug 04/02/2013 04/03/2013 Discontinued form: SOLN, Q4H, PRN Pain Score 7-10, Start date: 04/02/13 20:01:00, Duration: 30 day, Stop date: 05/02/13 20:00:00 Prilosec OTC 20 mg, Route: PO, Drug form: ECTAB, 04/01/2013 03/31/2013 Deleted Daily, Dosing Weight 81.818, kg, Start date: 04/01/13 9:00:00, Duration: 30 day, Stop date: 04/30/13 9:00:00 latanoprost 1 drp, Route: BOTH EYES, Bedtime, 03/31/2013 04/04/2013 Discontinued ophthalmic 0.005% Drug form: SOLN, Start date: solution 03/31/13 21:00:00, Duration: 30 day, Stop date: 04/29/13 21:00:00 Cosopt ophthalmic 1 drp, Route: BOTH EYES, BID, Drug 03/31/2013 04/04/2013 Discontinued solution form: SOLN, Start date: 03/31/13 21:00:00, Duration: 30 day, Stop date: 04/30/13 9:00:00 enoxaparin 40 mg, 0.4 mL, Route: SUB-Q, Drug 03/31/2013 04/04/2013 Discontinued form: INJ, [id number], Dosing Weight 81.818, kg, Start date: 03/31/13 19:00:00, Duration: 30 day, Stop date: 04/30/13 6:00:00 Protonix 40 mg, 1 tab, Route: PO, Drug form: 04/01/2013 04/04/2013 Discontinued ECTAB, Before Dinner, Start date: 04/01/13 16:30:00, Duration: 30 day, Stop date: 04/30/13 16:30:00 Ancef + Sodium 1 gm, Route: IVPB, [id number], Dosing 04/01/2013 04/01/2013 Completed Chloride 0.9% IV 100 Weight 81.8, kg, Start date: mL 04/01/13 14:00:00, Duration: 2 doses or times, Stop date: 04/01/13 22:00:00 Cipro 400 mg, 200 mL, Route: IVPB, Drug 04/01/2013 04/04/2013 Discontinued form: INJ, [id number], Dosing Weight 81.8, kg, Start date: 04/01/13 17:00:00, Duration: 30 day, Stop date: 05/01/13 5:00:00 ondansetron 4 mg, 2 mL, Route: IVP, Drug form: 03/31/2013 03/31/2013 Completed INJ, ONCE, Dosing Weight 81.818, kg, Priority: STAT, Start date: 03/31/13 14:38:00, Stop date: 03/31/13 14:38:00 Saline Flush 0.9% 5 mL, Route: IVP, Drug Form: INJ, 03/31/2013 03/31/2013 Discontinued Dosing Weight 81.818, kg, PRN, PRN Line Flush, Start date: 03/31/13 14:38:00, Duration: 30 day, Stop date: 04/30/13 14:37:00 morphine Sulfate 4 mg, 2 mL, Route: IVP, Drug form: 03/31/2013 03/31/2013 Completed INJ, ONCE, Dosing Weight 81.818, kg, Priority: STAT, Start date: 03/31/13 14:38:00, Stop date: 03/31/13 14:38:00 cefazolin + Sodium 1 gm, Route: IVPB, ONCE, Dosing 04/01/2013 04/01/2013 Completed Chloride 0.9% IV 100 Weight 81.8, kg, Start date: mL 04/01/13 5:59:00, Duration: 1 doses or times, Stop date: 04/01/13 5:59:00 Zofran 4 mg, 2 mL, Route: IVP, Drug form: 03/31/2013 04/04/2013 Discontinued INJ, Q8H, Dosing Weight 81.818, kg, PRN as needed for nausea/vomiting, Priority: STAT, Start date: 03/31/13 18:18:00, Duration: 30 day, Stop date: 04/30/13 18:17:00 morphine Sulfate 4 mg, 2 mL, Route: IVP, Drug form: 03/31/2013 04/02/2013 Discontinued INJ, Q4H, Dosing Weight 81.818, kg, PRN Pain Score 7-10, Start date: 03/31/13 18:18:00, Duration: 30 day, Stop date: 04/30/13 18:17:00 Feosol 325 mg oral 325 mg, 1 tab, Route: PO, Drug 04/03/2013 04/04/2013 Discontinued tablet form: ECTAB, BID-Meals, Dosing Weight 81.8, kg, Start date: 04/03/13 17:00:00, Duration: 30 day, Stop date: 05/03/13 8:00:00 Cipro I.V. 400 400 mg, 200 mL, Route: IVPB, Drug 04/01/2013 04/01/2013 Completed mg/200 mL form: INJ, ONCE, Dosing Weight intravenous solution 81.8, kg, Start date: 04/01/13 5:58:00, Stop date: 04/01/13 5:58:00 Vital Signs Most recent to oldest [Reference Range]: 1 2 3 Height 172.72 cm (03/31/2013 14:16:00) Temperature Oral [96.4-99.1 DegF] 98.5 DegF (04/04/2013 08:17:00) 98.3 DegF (04/04/2013 04:05:00) 99.2 DegF *HI* (04/03/2013 23:25:00) Systolic Blood Pressure [90-140 mmHg] 119 mmHg (04/04/2013 08:17:00) 145 mmHg *HI* (04/04/2013 04:05:00) 129 mmHg (04/03/2013 23:25:00) Diastolic Blood Pressure [60-90 mmHg] 73 mmHg (04/04/2013 08:17:00) 75 mmHg (04/04/2013 04:05:00) 72 mmHg (04/03/2013 23:25:00) Respiratory Rate [14-20 BRMIN] 18 BRMIN (04/04/2013 08:17:00) 18 BRMIN (04/04/2013 06:49:00) 18 BRMIN (04/04/2013 04:05:00) Peripheral Pulse Rate [60-100 bpm] 88 bpm (04/04/2013 08:17:00) 91 bpm (04/04/2013 04:05:00) 91 bpm (04/03/2013 23:25:00) Weight 81.8 kg (03/31/2013 20:00:00) 81.818 kg (03/31/2013 14:16:00) Results URINALYSIS Most recent to oldest [Reference Range]: 1 2 3 UA Turbidity [Clear] Marked *ABN* (03/31/2013 16:00:00) UA Color Nimo *NA* (03/31/2013 16:00:00) UA pH [5.0-8.0] 5.0 (03/31/2013 16:00:00) UA Spec Grav [<=1.030] 1.033 *HI* (03/31/2013 16:00:00) UA Glucose [Negative mg/dL] Negative mg/dL *NA* (03/31/2013 16:00:00) UA Blood [Negative] Negative (03/31/2013 16:00:00) UA Ketones [Negative mg/dL] Trace mg/dL *ABN* (03/31/2013 16:00:00) UA Protein [Negative mg/dL] 30 mg/dL *ABN* (03/31/2013 16:00:00) UA Urobilinogen [0.1-1.0 mg/dL] <=1.0 mg/dL *NA* (03/31/2013 16:00:00) UA Bili [Negative] Negative *NA* (03/31/2013 16:00:00) UA Leuk Est [Negative] Trace *ABN* (03/31/2013 16:00:00) UA Nitrite [Negative] Negative (03/31/2013 16:00:00) UA WBC [0-5 /HPF] 4 /HPF (03/31/2013 16:00:00) UA RBC [0-2 /HPF] 2 /HPF (03/31/2013 16:00:00) UA Bacteria [None Seen /HPF] Many /HPF *ABN* (03/31/2013 16:00:00) UA Sq Epi [Few /LPF] Occasional /LPF *NA* (03/31/2013 16:00:00) UA Mucus [None Seen /LPF] Many /LPF *ABN* (03/31/2013 16:00:00) BLOOD BANK RESULTS Most recent to oldest [Reference Range]: 1 2 3 ABO/Rh A POS *Unknown* (03/31/2013 17:00:00) Antibody Scrn Negative (03/31/2013 17:00:00) RBC product Product available 1 (03/31/2013 17:00:00) 1Result Comment: 03/31/2013 18:54 [id number] notified christiana CHEMISTRY Most recent to oldest [Reference Range]: 1 2 3 Sodium Lvl [135-145 mEq/L] 139 mEq/L (04/03/2013 13:54:00) 145 mEq/L (04/01/2013 06:13:00) 144 mEq/L (03/31/2013 15:17:00) Potassium Lvl [3.5-5.1 mEq/L] 3.9 mEq/L (04/03/2013 13:54:00) 4.2 mEq/L (04/01/2013 06:13:00) 4.0 mEq/L (03/31/2013 15:17:00) Chloride Lvl [95-109 mEq/L] 106 mEq/L (04/03/2013 13:54:00) 112 mEq/L *HI* (04/01/2013 06:13:00) 110 mEq/L *HI* (03/31/2013 15:17:00) CO2 [24-32 mEq/L] 23 mEq/L *LOW* (04/03/2013 13:54:00) 21 mEq/L *LOW* (04/01/2013 06:13:00) 23 mEq/L *LOW* (03/31/2013 15:17:00) AGAP [10.0-20.0 mEq/L] 13.9 mEq/L (04/03/2013 13:54:00) 16.2 mEq/L (04/01/2013 06:13:00) 15.0 mEq/L (03/31/2013 15:17:00) Creatinine Lvl [0.5-1.4 mg/dL] 0.9 mg/dL (04/03/2013 13:54:00) 0.8 mg/dL (04/01/2013 06:13:00) 1.0 mg/dL (03/31/2013 15:17:00) eGFR 61 mL/min/1.73m2 2 *NA* (04/03/2013 13:54:00) 71 mL/min/1.73m2 3 *NA* (04/01/2013 06:13:00) 54 mL/min/1.73m2 4 *NA* (03/31/2013 15:17:00) BUN [7-22 mg/dL] 19 mg/dL (04/03/2013 13:54:00) 35 mg/dL *HI* (04/01/2013 06:13:00) 36 mg/dL *HI* (03/31/2013 15:17:00) B/C Ratio [6-25] 36 *HI* (03/31/2013 15:17:00) Glucose Lvl [70-99 mg/dL] 118 mg/dL 5 *HI* (04/03/2013 13:54:00) 118 mg/dL 6 *HI* (04/01/2013 06:13:00) 113 mg/dL 7 *HI* (03/31/2013 15:17:00) Total Protein [6.4-8.4 g/dL] 7.0 g/dL (03/31/2013 15:17:00) Albumin Lvl [3.5-5.0 g/dL] 4.0 g/dL (03/31/2013 15:17:00) Globulin [2.0-4.0 g/dL] 3.0 g/dL (03/31/2013 15:17:00) A/G Ratio [0.7-1.6] 1.3 (03/31/2013 15:17:00) Calcium Lvl [8.5-10.5 mg/dL] 8.3 mg/dL *LOW* (04/03/2013 13:54:00) 8.6 mg/dL (04/01/2013 06:13:00) 8.8 mg/dL (03/31/2013 15:17:00) ALT [0-65 unit/L] 20 unit/L (03/31/2013 15:17:00) AST [0-37 unit/L] 17 unit/L (03/31/2013 15:17:00) Alk Phos [39-136 unit/L] 84 unit/L (03/31/2013 15:17:00) Bili Total [0.2-1.3 mg/dL] 0.4 mg/dL (03/31/2013 15:17:00) 2Result Comment: The eGFR is calculated using [...] be mul tiplied by the estimated BMI. 4Result Comment: The eGFR is calculated using [...] be mul tiplied by the estimated BMI. 5Interpretive Data: Adult reference range values reflect the clinical guidelines of the [place]. 6Interpretive Data: Adult reference range values reflect the clinical guidelines of the [place]. 7Interpretive Data: Adult reference range values reflect the clinical guidelines of the [place]. HEMATOLOGY Most recent to oldest [Reference Range]: 1 2 3 WBC [3.7-10.4 K/CMM] 6.0 K/CMM (04/04/2013 05:30:00) 8.4 K/CMM (04/03/2013 13:54:00) 7.8 K/CMM (04/02/2013 05:36:00) RBC [4.20-5.40 M/CMM] 3.07 M/CMM *LOW* (04/04/2013 05:30:00) 3.51 M/CMM *LOW* (04/03/2013 13:54:00) 3.51 M/CMM *LOW* (04/02/2013 05:36:00) Hgb [12.0-16.0 g/dL] 9.1 g/dL *LOW* (04/04/2013 05:30:00) 10.2 g/dL *LOW* (04/03/2013 13:54:00) 10.4 g/dL *LOW* (04/02/2013 05:36:00) Hct [36.0-48.0 %] 27.6 % *LOW* (04/04/2013 05:30:00) 31.5 % *LOW* (04/03/2013 13:54:00) 32.0 % *LOW* (04/02/2013 05:36:00) MCV [81.0-99.0 fL] 89.9 fL (04/04/2013 05:30:00) 89.7 fL (04/03/2013 13:54:00) 91.1 fL (04/02/2013 05:36:00) MCH [27.0-31.0 pg] 29.7 pg (04/04/2013 05:30:00) 29.1 pg (04/03/2013 13:54:00) 29.6 pg (04/02/2013 05:36:00) MCHC [32.0-36.0 g/dL] 33.0 g/dL (04/04/2013 05:30:00) 32.5 g/dL (04/03/2013 13:54:00) 32.4 g/dL (04/02/2013 05:36:00) RDW [11.5-14.5 %] 14.8 % *HI* (04/04/2013 05:30:00) 14.8 % *HI* (04/03/2013 13:54:00) 15.3 % *HI* (04/02/2013 05:36:00) Platelet [133-450 K/CMM] 186 K/CMM (04/04/2013 05:30:00) 199 K/CMM (04/03/2013 13:54:00) 184 K/CMM (04/02/2013 05:36:00) MPV [7.4-10.4 fL] 8.5 fL (04/04/2013 05:30:00) 8.0 fL (04/03/2013 13:54:00) 8.4 fL (04/02/2013 05:36:00) Segs [45.0-75.0 %] 63.5 % (04/04/2013 05:30:00) 74.6 % (04/03/2013 13:54:00) 74.6 % (04/02/2013 05:36:00) Lymphocytes [20.0-40.0 %] 18.0 % *LOW* (04/04/2013 05:30:00) 10.8 % *LOW* (04/03/2013 13:54:00) 11.2 % *LOW* (04/02/2013 05:36:00) Monocytes [2.0-12.0 %] 16.0 % *HI* (04/04/2013 05:30:00) 13.5 % *HI* (04/03/2013 13:54:00) 13.4 % *HI* (04/02/2013 05:36:00) Eosinophils [0.0-4.0 %] 1.7 % (04/04/2013 05:30:00) 0.7 % (04/03/2013 13:54:00) 0.3 % (04/02/2013 05:36:00) Basophils [0.0-1.0 %] 0.8 % (04/04/2013 05:30:00) 0.4 % (04/03/2013 13:54:00) 0.5 % (04/02/2013 05:36:00) Segs-Bands # [1.5-8.1 K/CMM] 3.8 K/CMM (04/04/2013 05:30:00) 6.3 K/CMM (04/03/2013 13:54:00) 5.8 K/CMM (04/02/2013 05:36:00) Lymphocytes # [1.0-5.5 K/CMM] 1.1 K/CMM (04/04/2013 05:30:00) 0.9 K/CMM *LOW* (04/03/2013 13:54:00) 0.9 K/CMM *LOW* (04/02/2013 05:36:00) Monocytes # [0.0-0.8 K/CMM] 1.0 K/CMM *HI* (04/04/2013 05:30:00) 1.1 K/CMM *HI* (04/03/2013 13:54:00) 1.0 K/CMM *HI* (04/02/2013 05:36:00) Eosinophils # [0.0-0.5 K/CMM] 0.1 K/CMM (04/04/2013 05:30:00) 0.1 K/CMM (04/03/2013 13:54:00) 0.0 K/CMM (04/02/2013 05:36:00) Basophils # [0.0-0.2 K/CMM] 0.0 K/CMM (04/04/2013 05:30:00) 0.0 K/CMM (04/03/2013 13:54:00) 0.0 K/CMM (04/02/2013 05:36:00) RBC Morph Normal (04/01/2013 06:13:00) Plt Morph Normal (04/01/2013 06:13:00) PT [12.0-14.7 seconds] 13.7 seconds (03/31/2013 15:17:00) INR [0.85-1.17] 1.03 8 (03/31/2013 15:17:00) PTT [22.9-35.8 seconds] 26.2 seconds 9 (03/31/2013 15:17:00) 8Interpretive Data: RECOMMENDED RANGES FOR PROTIME INR: 2.0-3.0 for most medical and surgical thromboembolic states. 2.5-3.5 for artificial heart valves and recurrent embolism. INR SHOULD BE USED ONLY FOR PATIENTS ON STABLE ANTICOAGULANT THERAPY. 9Interpretive Data: Heparin Therapeutic Range: 57 - 92 Seconds Procedures Procedures Date Related Diagnosis Hysterectomy Neck procedure
--- OUTSIDE RECORDS SUMMARY | 2018-08-01 16:54 | XMS REPORT | CCD ---
Author Author Auto Generated Organization [facility] Address Unknown Phone Unavailable Care Team Providers Care Dryland Farmer Name Role Phone Adam Singh CP Allergies, Adverse Reactions, Alerts Substance Reaction Status NKDA Active Problem List Condition Effective Dates Status Cataract Resolved Hiatal hernia Resolved MRSA1 Active Osteoarthritis Resolved Peptic ulcer disease Resolved 1Problem added by Discern Expert. Medications Medication Instructions Start Date End Date Status bisacodyl 10 mg, 1 supp, Route: OK, Drug 04/30/2013 05/05/2013 Discontinued form: SUPP, Daily, Dosing Weight 72.727, kg, PRN as needed for constipation, Start date: 04/30/13 3:17:00, Duration: 30 day, Stop date: 05/30/13 3:16:00 potassium chloride 20 mEq, 100 mL, Route: IVPB, Drug 04/30/2013 05/05/2013 Discontinued form: INJ, Q2H, Dosing Weight 72.727, kg, PRN Abnormal Lab Result, Total dose=60 mEq, Start date: 04/30/13 8:57:00, Duration: 3 doses or times, Stop date: Limited # of times, For K 2.5- 2.9 mEq/L For K 2.5- 2.9 mEq/L Zofran 4 mg, 2 mL, Route: IVP, Drug form: 05/03/2013 05/05/2013 Discontinued INJ, Q4H, PRN Nausea & Vomiting, Start date: 05/03/13 10:55:00, Duration: 30 day, Stop date: 06/02/13 10:54:00 Lovenox 72.727 mg, Route: SUB-Q, Drug form: 04/29/2013 04/29/2013 Completed INJ, ONCE, Dosing Weight 72.727, kg, Priority: STAT, Start date: 04/29/13 13:00:00, Stop date: 04/29/13 13:00:00 potassium chloride 20 mEq, 100 mL, Route: IVPB, Drug 04/30/2013 05/05/2013 Discontinued form: INJ, Q2H, Dosing Weight 72.727, kg, PRN Abnormal Lab Result, Total dose=40 mEq, Start date: 04/30/13 8:57:00, Duration: 2 doses or times, Stop date: Limited # of times, For K=3.0 - 3.4mEq/L For K=3.0 - 3.4mEq/L nitroglycerin 0.4 mg 0.4 mg, 1 tab, Route: SL, Drug 05/02/2013 05/05/2013 Discontinued sublingual tablet form: TAB, Q5Min, PRN Chest Pain, Start date: 05/02/13 5:36:00, Duration: 30 day, Stop date: 06/01/13 5:35:00 atropine 0.5 mg, 5 mL, Route: IVP, Drug 05/02/2013 05/05/2013 Discontinued form: INJ, PRN, PRN Bradycardia, Start date: 05/02/13 5:36:00, Duration: 30 day, Stop date: 06/01/13 5:35:00 enoxaparin 70 mg, Route: SUB-Q, [id number], 04/29/2013 04/29/2013 Deleted Dosing Weight 72.727, kg, Start date: 04/29/13 20:00:00, Duration: 30 day, Stop date: 05/29/13 8:00:00 aspirin 81 mg, Route: CHEW, Drug form: 04/29/2013 04/29/2013 Completed CHEWTAB, ONCE, Dosing Weight 72.727, kg, Priority: STAT, Start date: 04/29/13 13:05:00, Stop date: 04/29/13 13:05:00 Zofran 4 mg, Route: IVP, Drug form: INJ, 04/29/2013 04/29/2013 Completed ONCE, Dosing Weight 72.727, kg, Priority: STAT, Start date: 04/29/13 13:28:00, Stop date: 04/29/13 13:28:00 acetaminophen-hydroc 1 tab, Route: PO, Drug Form: TAB, 04/29/2013 05/05/2013 Discontinued odone 325 mg-5 mg Q4H, PRN Pain Score 1-3, Start oral tablet date: 04/29/13 20:49:00, Duration: 30 day, Stop date: 05/29/13 20:48:00 morphine Sulfate 2 mg, Route: IVP, Drug form: INJ, 04/29/2013 04/29/2013 Completed ONCE, Dosing Weight 72.727, kg, Priority: STAT, Start date: 04/29/13 13:28:00, Stop date: 04/29/13 13:28:00 NS 1,000 mL 1,000 mL, Rate: 75 ml/hr, Infuse 04/29/2013 04/30/2013 Discontinued over: 13.3 hr, Route: IV, Dosing Weight 72.727 kg, Total Volume: 1,000, Start date: 04/29/13 13:12:00, Duration: 30 day, Stop date: 05/29/13 13:11:00 NS (Bolus) IV 500 mL 500 mL, Rate: 500 ml/hr, Infuse 04/29/2013 04/29/2013 Completed over: 1 hr, Route: IV, Dosing Weight 72.727 kg, Total Volume: 500, Priority: STAT, Start date: 04/29/13 13:12:00, Duration: 1 doses or times, Stop date: 04/29/13 14:11:00, Bolus Dose Bolus Dose potassium chloride 20 mEq, 100 mL, Route: IVPB, Drug 04/30/2013 05/05/2013 Discontinued form: INJ, Q2H, Dosing Weight 72.727, kg, PRN Abnormal Lab Result, Total dose=60 mEq, Start date: 04/30/13 16:41:00, Duration: 30 day, Stop date: 05/30/13 16:00:00, For K 2.5- 2.9 mEq/L For K 2.5- 2.9 mEq/L potassium chloride 20 mEq, 100 mL, Route: IVPB, Drug 04/30/2013 05/05/2013 Discontinued form: INJ, Q2H, Dosing Weight 72.727, kg, PRN Abnormal Lab Result, Total dose=40 mEq, Start date: 04/30/13 16:41:00, Duration: 30 day, Stop date: 05/30/13 16:00:00, For K=3.0 - 3.4mEq/L For K=3.0 - 3.4mEq/L Lovenox 70 mg, 0.7 mL, Route: SUB-Q, Drug 04/29/2013 05/04/2013 Discontinued form: INJ, Q12H, Dosing Weight 72.727, kg, Priority: STAT, Start date: 04/29/13 14:58:00, Duration: 30 day, Stop date: 05/29/13 14:00:00 MiraLax 17 gm, 1 pkt, Route: PO, Drug form: 04/30/2013 05/05/2013 Discontinued PWDR, Daily, Dosing Weight 72.727, kg, Start date: 04/30/13 9:00:00, Duration: 30 day, Stop date: 05/29/13 9:00:00 Protonix 40 mg, 1 tab, Route: PO, Drug form: 04/30/2013 05/05/2013 Discontinued ECTAB, Before Breakfast, Dosing Weight 72.727, kg, Start date: 04/30/13 7:30:00, Duration: 30 day, Stop date: 05/29/13 7:30:00 NS 1,000 mL 1,000 mL, Rate: 50 ml/hr, Infuse 04/30/2013 04/30/2013 Discontinued over: 20 hr, Route: IV, Dosing Weight 72.727 kg, Total Volume: 1,000, Start date: 04/30/13 8:53:00, Duration: 30 day, Stop date: 05/30/13 8:52:00 Coumadin 5 mg, 1 tab, Route: PO, Drug form: 04/30/2013 05/05/2013 Discontinued TAB, Q5PM, Dosing Weight 72.727, kg, Priority: Routine, Start date: 04/30/13 17:00:00, Duration: 7 day, Stop date: 05/06/13 17:00:00 dorzolamide-timolol 1 drp, Route: BOTH EYES, BID, Drug 04/30/2013 05/05/2013 Discontinued ophthalmic 2%-0.5% form: SOLN, Start date: 04/30/13 solution 9:00:00, Duration: 30 day, Stop date: 05/29/13 17:00:00 docusate sodium 100 100 mg, 1 cap, Route: PO, Drug 04/30/2013 05/05/2013 Discontinued mg oral capsule form: CAP, BID, Dosing Weight 72.727, kg, Start date: 04/30/13 9:00:00, Duration: 30 day, Stop date: 05/29/13 17:00:00 DuoNeb inhalation 3 ml, Route: INHALATION, Drug Form: 04/29/2013 05/02/2013 Discontinued solution SOLN, Dosing Weight 72.727, kg, PRN, PRN Respiratory Protocol, Start date: 04/29/13 14:18:00, Duration: 30 day, Stop date: 05/29/13 14:17:00 latanoprost 1 drp, Route: BOTH EYES, Bedtime, 04/30/2013 05/05/2013 Discontinued ophthalmic 0.005% Drug form: SOLN, Start date: solution 04/30/13 21:00:00, Duration: 30 day, Stop date: 05/29/13 21:00:00 ferrous sulfate 325 mg, 1 tab, Route: PO, Drug 04/30/2013 05/05/2013 Discontinued form: ECTAB, BID-Meals, Dosing Weight 72.727, kg, Start date: 04/30/13 8:00:00, Duration: 30 day, Stop date: 05/29/13 17:00:00 warfarin 5 mg oral 5 mg, 1 tab, PO, Q5PM, 30 tab, 05/05/2013 Ordered tablet Substitution Allowed, TAB Vitamin D3 1000 intl 1,000 IntlUnit, 1 tab, Route: PO, 04/30/2013 05/05/2013 Discontinued units oral tablet Drug form: TAB, Daily, Dosing Weight 72.727, kg, Start date: 04/30/13 9:00:00, Duration: 30 day, Stop date: 05/29/13 9:00:00 Saline Flush 0.9% 5 mL, Route: IVP, Drug Form: INJ, 04/29/2013 04/29/2013 Discontinued Dosing Weight 72.727, kg, PRN, PRN Line Flush, Start date: 04/29/13 11:12:00, Duration: 30 day, Stop date: 05/29/13 11:11:00 Sodium Chloride 0.9% 500 mL, Rate: 500 ml/hr, Infuse 04/29/2013 04/29/2013 Completed (Bolus) IV 500 mL over: 1 hr, Route: IV, Dosing Weight 72.727 kg, Total Volume: 500, Priority: STAT, Start date: 04/29/13 11:12:00, Duration: 1 doses or times, Stop date: 04/29/13 12:11:00 Vital Signs Most recent to oldest [Reference Range]: 1 2 3 Height 170.18 cm (04/29/2013 11:02:00) Temperature Oral [96.4-99.1 DegF] 97.6 DegF (05/05/2013 16:00:00) 97.6 DegF (05/05/2013 16:00:00) 97.7 DegF (05/05/2013 12:00:00) Systolic Blood Pressure [90-140 mmHg] 136 mmHg (05/05/2013 16:00:00) 136 mmHg (05/05/2013 16:00:00) 147 mmHg *HI* (05/05/2013 12:00:00) Diastolic Blood Pressure [60-90 mmHg] 83 mmHg (05/05/2013 16:00:00) 83 mmHg (05/05/2013 16:00:00) 78 mmHg (05/05/2013 12:00:00) Respiratory Rate [14-20 BRMIN] 19 BRMIN (05/05/2013 16:00:00) 19 BRMIN (05/05/2013 16:00:00) 19 BRMIN (05/05/2013 12:00:00) Peripheral Pulse Rate [60-100 bpm] 89 bpm (05/05/2013 16:00:00) 89 bpm (05/05/2013 16:00:00) 79 bpm (05/05/2013 12:00:00) Weight 72.727 kg (04/29/2013 11:02:00) Results BACTERIAL - SEROLOGY Most recent to oldest [Reference Range]: 1 2 3 MRSA by PCR Positive 1, 2 *ABN* (04/29/2013 19:34:00) 1Interpretive Data: Interpretive Data: The [employer] Light[employer] MRSA assay is a qualitative test for the direct detection of nasal colonization with methicillin-resistant Staphylococcus aureus (MRSA) to aid in the prevention and control of MRSA infections in healthcare settings. A positive result does not indicate an infection or require treatment. A negative result does not exclude colonization or infection. The polymerase chain reaction (PCR) assay detects a proprietary sequence indicat mal of the integration of the SCCmec cassette into the Staphylococcus aureus chr omosome, indicating the presence of MRSA DNA. The assay utilizes FDA cleared IV D reagents. Performance characteristics have been verified by the [facility] within the [facility]. The [facility] is authorized under the Clinical Laboratory Improvement Amendment of 1 988 (CLIA-88) to perform high complexity testing. 2Result Comment: "Significant Findings called to Mariola Peterson_at 2:40PM___by EVT___.Read Back OK." BEDSIDE GLUCOSE TESTING Most recent to oldest [Reference Range]: 1 2 3 Gluc POC Lifscn [70-99 mg/dL] 140 mg/dL 3 *HI* (05/03/2013 12:00:00) 132 mg/dL 4 *HI* (04/29/2013 11:22:00) Comment1 Notify RN/MD *NA* (04/29/2013 11:22:00) 3Interpretive Data: Upper Reportable Limit: 200 mg/dL. 4Interpretive Data: Upper Reportable Limit: 200 mg/dL. URINALYSIS Most recent to oldest [Reference Range]: 1 2 3 UA Turbidity [Clear] Slight *ABN* (04/29/2013 11:48:00) UA Color [Yellow] Yellow *NA* (04/29/2013 11:48:00) UA pH [5.0-8.0] 5.0 (04/29/2013 11:48:00) UA Spec Grav [<=1.030] 1.017 (04/29/2013 11:48:00) UA Glucose [Negative mg/dL] Negative mg/dL *NA* (04/29/2013 11:48:00) UA Blood [Negative] Negative (04/29/2013 11:48:00) UA Ketones [Negative mg/dL] Negative mg/dL *NA* (04/29/2013 11:48:00) UA Protein [Negative mg/dL] Negative mg/dL (04/29/2013 11:48:00) UA Urobilinogen [0.1-1.0 mg/dL] <=1.0 mg/dL *NA* (04/29/2013 11:48:00) UA Bili [Negative] Negative *NA* (04/29/2013 11:48:00) UA Leuk Est [Negative] Negative (04/29/2013 11:48:00) UA Nitrite [Negative] Negative (04/29/2013 11:48:00) UA WBC [0-5 /HPF] 1 /HPF (04/29/2013 11:48:00) UA RBC [0-2 /HPF] <1 /HPF (04/29/2013 11:48:00) UA Sq Epi None Seen *NA* (04/29/2013 11:48:00) UA Hyal Cast [0-2 /LPF] 2 /LPF (04/29/2013 11:48:00) CHEMISTRY Most recent to oldest [Reference Range]: 1 2 3 Sodium Lvl [135-145 mEq/L] 144 mEq/L (05/04/2013 04:29:00) 145 mEq/L (05/03/2013 03:40:00) 145 mEq/L (05/02/2013 07:06:00) Potassium Lvl [3.5-5.1 mEq/L] 3.3 mEq/L *LOW* (05/04/2013 04:29:00) 3.5 mEq/L (05/03/2013 03:40:00) 3.7 mEq/L (05/02/2013 07:06:00) Chloride Lvl [95-109 mEq/L] 109 mEq/L (05/04/2013 04:29:00) 110 mEq/L *HI* (05/03/2013 03:40:00) 111 mEq/L *HI* (05/02/2013 07:06:00) CO2 [24-32 mEq/L] 24 mEq/L (05/04/2013 04:29:00) 26 mEq/L (05/03/2013 03:40:00) 24 mEq/L (05/02/2013 07:06:00) AGAP [10.0-20.0 mEq/L] 14.3 mEq/L (05/04/2013 04:29:00) 12.5 mEq/L (05/03/2013 03:40:00) 13.7 mEq/L (05/02/2013 07:06:00) Creatinine Lvl [0.5-1.4 mg/dL] 1.1 mg/dL (05/04/2013 04:29:00) 0.7 mg/dL (05/03/2013 03:40:00) 0.7 mg/dL (05/02/2013 07:06:00) eGFR 48 mL/min/1.73m2 5 *NA* (05/04/2013 04:29:00) 83 mL/min/1.73m2 6 *NA* (05/03/2013 03:40:00) 83 mL/min/1.73m2 7 *NA* (05/02/2013 07:06:00) BUN [7-22 mg/dL] 19 mg/dL (05/04/2013 04:29:00) 10 mg/dL (05/03/2013 03:40:00) 11 mg/dL (05/02/2013 07:06:00) B/C Ratio [6-25] 19 (04/29/2013 21:20:00) 32 *HI* (04/29/2013 11:40:00) Glucose Lvl [70-99 mg/dL] 97 mg/dL 8 (05/04/2013 04:29:00) 96 mg/dL 9 (05/03/2013 03:40:00) 93 mg/dL 10 (05/02/2013 07:06:00) Total Protein [6.4-8.4 g/dL] 6.2 g/dL *LOW* (04/29/2013 21:20:00) 6.8 g/dL (04/29/2013 11:40:00) Albumin Lvl [3.5-5.0 g/dL] 3.2 g/dL *LOW* (04/29/2013 21:20:00) 3.4 g/dL *LOW* (04/29/2013 11:40:00) Globulin [2.0-4.0 g/dL] 3.0 g/dL (04/29/2013 21:20:00) 3.4 g/dL (04/29/2013 11:40:00) A/G Ratio [0.7-1.6] 1.1 (04/29/2013 21:20:00) 1.0 (04/29/2013 11:40:00) Calcium Lvl [8.5-10.5 mg/dL] 8.5 mg/dL (05/04/2013 04:29:00) 8.5 mg/dL (05/03/2013 03:40:00) 8.3 mg/dL *LOW* (05/02/2013 07:06:00) Magnesium Lvl [1.8-2.4 mg/dL] 1.8 mg/dL (05/03/2013 03:40:52) ALT [0-65 unit/L] 17 unit/L (04/29/2013 21:20:00) 20 unit/L (04/29/2013 11:40:00) AST [0-37 unit/L] 19 unit/L (04/29/2013 21:20:00) 44 unit/L *HI* (04/29/2013 11:40:00) Alk Phos [39-136 unit/L] 153 unit/L *HI* (04/29/2013 21:20:00) 174 unit/L *HI* (04/29/2013 11:40:00) Bili Total [0.2-1.3 mg/dL] 0.7 mg/dL (04/29/2013 21:20:00) 1.0 mg/dL (04/29/2013 11:40:00) Total CK [12-191 unit/L] 32 unit/L (05/02/2013 13:17:00) 99 unit/L (04/29/2013 11:40:00) CK MB [0.5-3.6 ng/mL] 1.2 ng/mL (05/02/2013 13:17:00) 2.7 ng/mL (04/29/2013 11:40:00) CK MB Index [0.0-2.5] 3.8 *HI* (05/02/2013 13:17:00) 2.7 *HI* (04/29/2013 11:40:00) Troponin-I [0.00-0.40 ng/mL] 0.10 ng/mL (05/02/2013 13:17:00) 0.55 ng/mL 11 *CRIT* (04/30/2013 09:10:00) 1.33 ng/mL 12 *CRIT* (04/29/2013 21:20:00) BNP [<=100 pg/mL] 402 pg/mL 13 *HI* (04/29/2013 21:20:00) 100 pg/mL 14 (04/29/2013 11:40:00) pH Art [7.35-7.45] 7.39 (04/29/2013 15:12:00) pCO2 Art [35-45 mmHg] 32 mmHg *LOW* (04/29/2013 15:12:00) pO2 Art [80-100 mmHg] 71 mmHg *LOW* (04/29/2013 15:12:00) HCO3 Art [22-26 mMol/L] 19 mMol/L *LOW* (04/29/2013 15:12:00) BE Art [-2-2 mMol/L] -5 mMol/L *LOW* (04/29/2013 15:12:00) O2 Sat Art [95.0-100.0 %] 93.9 % *LOW* (04/29/2013 15:12:00) Site Art Left Rad (04/29/2013 15:12:00) Temp Art 37.0 DegC *NA* (04/29/2013 15:12:00) Allens Art Positive (04/29/2013 15:12:00) FiO2 Art 28.0 *NA* (04/29/2013 15:12:00) 5Result Comment: The eGFR is calculated using [...] be mul tiplied by the estimated BMI. 6Result Comment: The eGFR is calculated using [...] be mul tiplied by the estimated BMI. 7Result Comment: The eGFR is calculated using [...] be mul tiplied by the estimated BMI. 8Interpretive Data: Adult reference range values reflect the clinical guidelines of the [place] [employer]. 9Interpretive Data: Adult reference range values reflect the clinical guidelines of the [place] [employer]. 10Interpretive Data: Adult reference range values reflect the clinical guidelines of the [place] [employer]. 11Result Comment: Critical Result(s) called to pedro crowley at 04/30/2013 09:40 byemw. Read back OK. 12Result Comment: Critical Result(s) called to miryam at 04/29/2013 22:05 bysol_. Read back OK. 13Interpretive Data: Elevated results are in line with increasing severity of congestive heart failure. Minor elevations between 100 and 300 may be seen with Myocardial Ischemia, Sodium retaining drugs, and compensated/treated heart failure. 14Interpretive Data: Elevated results are in line with increasing severity of congestive heart failure. Minor elevations between 100 and 300 may be seen with Myocardial Ischemia, Sodium retaining drugs, and compensated/treated heart failure. HEMATOLOGY Most recent to oldest [Reference Range]: 1 2 3 WBC [3.7-10.4 K/CMM] 5.8 K/CMM (05/04/2013 04:29:00) 5.6 K/CMM (05/03/2013 03:40:00) 4.4 K/CMM (05/02/2013 07:06:00) RBC [4.20-5.40 M/CMM] 3.98 M/CMM *LOW* (05/04/2013 04:29:00) 3.94 M/CMM *LOW* (05/03/2013 03:40:00) 3.86 M/CMM *LOW* (05/02/2013 07:06:00) Hgb [12.0-16.0 g/dL] 11.4 g/dL *LOW* (05/04/2013 04:29:00) 11.3 g/dL *LOW* (05/03/2013 03:40:00) 11.1 g/dL *LOW* (05/02/2013 07:06:00) Hct [36.0-48.0 %] 36.2 % (05/04/2013 04:29:00) 36.1 % (05/03/2013 03:40:00) 35.4 % *LOW* (05/02/2013 07:06:00) MCV [81.0-99.0 fL] 90.9 fL (05/04/2013 04:29:00) 91.6 fL (05/03/2013 03:40:00) 91.6 fL (05/02/2013 07:06:00) MCH [27.0-31.0 pg] 28.6 pg (05/04/2013 04:29:00) 28.5 pg (05/03/2013 03:40:00) 28.9 pg (05/02/2013 07:06:00) MCHC [32.0-36.0 g/dL] 31.5 g/dL *LOW* (05/04/2013 04:29:00) 31.2 g/dL *LOW* (05/03/2013 03:40:00) 31.5 g/dL *LOW* (05/02/2013 07:06:00) RDW [11.5-14.5 %] 15.9 % *HI* (05/04/2013 04:29:00) 16.0 % *HI* (05/03/2013 03:40:00) 15.9 % *HI* (05/02/2013 07:06:00) Platelet [133-450 K/CMM] 241 K/CMM (05/04/2013 04:29:00) 242 K/CMM (05/03/2013 03:40:00) 222 K/CMM (05/02/2013 07:06:00) MPV [7.4-10.4 fL] 9.2 fL (05/04/2013 04:29:00) 8.4 fL (05/03/2013 03:40:00) 8.4 fL (05/02/2013 07:06:00) Segs [45.0-75.0 %] 64.3 % (05/04/2013 04:29:00) 61.1 % (05/03/2013 03:40:00) 57.1 % (05/02/2013 07:06:00) Lymphocytes [20.0-40.0 %] 22.7 % (05/04/2013 04:29:00) 23.4 % (05/03/2013 03:40:00) 27.8 % (05/02/2013 07:06:00) Monocytes [2.0-12.0 %] 11.6 % (05/04/2013 04:29:00) 13.8 % *HI* (05/03/2013 03:40:00) 12.6 % *HI* (05/02/2013 07:06:00) Eosinophils [0.0-4.0 %] 0.8 % (05/04/2013 04:29:00) 0.8 % (05/03/2013 03:40:00) 1.4 % (05/02/2013 07:06:00) Basophils [0.0-1.0 %] 0.6 % (05/04/2013 04:29:00) 0.9 % (05/03/2013 03:40:00) 1.1 % *HI* (05/02/2013 07:06:00) Segs-Bands # [1.5-8.1 K/CMM] 3.7 K/CMM (05/04/2013 04:29:00) 3.4 K/CMM (05/03/2013 03:40:00) 2.5 K/CMM (05/02/2013 07:06:00) Lymphocytes # [1.0-5.5 K/CMM] 1.3 K/CMM (05/04/2013 04:29:00) 1.3 K/CMM (05/03/2013 03:40:00) 1.2 K/CMM (05/02/2013 07:06:00) Monocytes # [0.0-0.8 K/CMM] 0.7 K/CMM (05/04/2013 04:29:00) 0.8 K/CMM (05/03/2013 03:40:00) 0.6 K/CMM (05/02/2013 07:06:00) Eosinophils # [0.0-0.5 K/CMM] 0.0 K/CMM (05/04/2013 04:29:00) 0.0 K/CMM (05/03/2013 03:40:00) 0.1 K/CMM (05/02/2013 07:06:00) Basophils # [0.0-0.2 K/CMM] 0.0 K/CMM (05/04/2013 04:29:00) 0.0 K/CMM (05/03/2013 03:40:00) 0.0 K/CMM (05/02/2013 07:06:00) RBC Morph Normal (04/29/2013 11:40:00) Plt Morph Normal (04/29/2013 11:40:00) PT [12.0-14.7 seconds] 24.8 seconds *HI* (05/05/2013 03:38:00) 24.0 seconds *HI* (05/04/2013 04:29:00) 16.7 seconds *HI* (05/02/2013 07:06:00) INR [0.85-1.17] 2.29 15 *HI* (05/05/2013 03:38:00) 2.20 16 *HI* (05/04/2013 04:29:00) 1.37 17 *HI* (05/02/2013 07:06:00) PTT [22.9-35.8 seconds] 48.2 seconds 18 *HI* (04/30/2013 09:10:00) 35.1 seconds 19 (04/29/2013 11:40:00) 15Interpretive Data: RECOMMENDED RANGES FOR PROTIME INR: 2.0-3.0 for most medical and surgical thromboembolic states. 2.5-3.5 for artificial heart valves and recurrent embolism. INR SHOULD BE USED ONLY FOR PATIENTS ON STABLE ANTICOAGULANT THERAPY. 16Interpretive Data: RECOMMENDED RANGES FOR PROTIME INR: 2.0-3.0 for most medical and surgical thromboembolic states. 2.5-3.5 for artificial heart valves and recurrent embolism. INR SHOULD BE USED ONLY FOR PATIENTS ON STABLE ANTICOAGULANT THERAPY. 17Interpretive Data: RECOMMENDED RANGES FOR PROTIME INR: 2.0-3.0 for most medical and surgical thromboembolic states. 2.5-3.5 for artificial heart valves and recurrent embolism. INR SHOULD BE USED ONLY FOR PATIENTS ON STABLE ANTICOAGULANT THERAPY. 18Interpretive Data: Heparin Therapeutic Range: 57 - 92 Seconds 19Interpretive Data: Heparin Therapeutic Range: 57 - 92 Seconds Microbiology Reports PROCEDURE:Culture: Urine STATUS: Auth (Verified) BODY SITE: COLLECTED DATE/TIME: 04/29/2013 11:48:00 SOURCE: Urine, Clean Catch FREE TEXT SOURCE: FINAL REPORTS Final Report No Growth PRELIMINARY REPORTS Preliminary Report No Growth; Holding
--- OUTSIDE RECORDS SUMMARY | 2018-08-01 16:54 | XMS REPORT | Summary of Care ---
Author Author [facility] Organization [facility] Address Unknown Phone Unavailable Encounter ARELI Hull(JOAN) [id number] Date(s): 11/22/16 - 11/22/16 [facility] [address] [place] [address]- Discharge Disposition: Home or Self Care Attending Physician: Rodri Simpson Referring Physician: Rodri Simpson Vital Signs 1 2 3 Most recent to oldest [Reference Range]: 172.72 cm (11/19/16 1:31 PM) Height 97.6 DegF (11/19/16 2:58 PM) Temperature Oral [96.4-99.1 DegF] 141/76 mmHg *HI* (11/22/16 10:15 AM) 151/68 mmHg *HI* (11/22/16 9:15 AM) 169/76 mmHg *HI* (11/22/16 9:00 AM) Blood Pressure [90-140/60-90 mmHg] 16 BRMIN (11/22/16 10:15 AM) 14 BRMIN (11/22/16 9:15 AM) 13 BRMIN *LOW* (11/22/16 9:00 AM) Respiratory Rate [14-20 BRMIN] 53 bpm *LOW* (11/19/16 2:58 PM) Peripheral Pulse Rate [60-100 bpm] 68.182 kg (11/19/16 1:31 PM) Weight 22.86 m2 (11/19/16 1:31 PM) Body Mass Index Problem List Condition Effective Dates Status Health Status Informant Blind one Active eye(Confirmed)1 Radial Active fracture(Confirmed) ATQASUK (hard of Active hearing)(Confirmed) Hiatal Resolved hernia(Confirmed) Hypertension(Confirm Resolved ed) Hypertension(Confirm Active ed) MRSA(Confirmed)2 Active Osteoarthritis(Confi Resolved rmed) Peptic ulcer Resolved disease(Confirmed) 1right 2Problem added by Discern Expert. Allergies, Adverse Reactions, Alerts Substance Reaction Severity Status morphine Active Medications acetaminophen 650 mg, Route: PO, Drug form: TAB, Q4H, Dosing Weight 68.182, kg, PRN Pain 1-3/T emp > 100.4 F, Start date: 11/22/16 8:19:00 CDT, Duration: 30 day, Stop date: 12/22/16 8:18:00 CDT Start Date: 11/22/16 Stop Date: 11/22/16 Status: Discontinued acetaminophen (ANES) Route: IV, Drug form: INJ, ONCE, Stop date: 11/22/16 8:12:00 CDT Start Date: 11/22/16 Stop Date: 11/22/16 Status: Completed acetaminophen-hydrocodone 325 mg-10 mg oral tablet 1 tab, Route: PO, Dosing Weight 68.182, kg, Q4H, PRN Pain Score 4-6, Start date: 11/22/16 8:19:00 CDT, Duration: 30 day, Stop date: 12/22/16 8:18:00 CDT Start Date: 11/22/16 Stop Date: 11/22/16 Status: Discontinued acetaminophen-hydrocodone 325 mg-5 mg oral tablet 1 tab, PO, Daily, PRN PAIN, 0 Refill(s) Start Date: 11/19/16 Status: Ordered albuterol-ipratropium 2.5-0.5 mg inhalation solution 3 mL, Route: NEB, Dosing Weight 68.182, kg, ONCE, STAT, Start date: 11/22/16 8:1 5:00 CDT, Stop date: 11/22/16 8:15:00 CDT Start Date: 11/22/16 Stop Date: 11/22/16 Status: Discontinued ANES acetaminophen 1,000 mg, Route: PO, Drug form: TAB, ONCE, Dosing Weight 68.182, kg, PRN Pain Sc ore 1-3, Start date: 11/22/16 8:37:00 CDT, Duration: 1 doses or times, Stop date : Limited # of times Start Date: 11/22/16 Stop Date: 11/22/16 Status: Discontinued ANES albuterol 0.083% inhalation solution 2.49 mg, Route: NEB, Q20Min, Dosing Weight 68.182, kg, PRN Wheezing, Priority: S TAT, Start date: 11/22/16 8:37:00 CDT, Duration: 30 day, Stop date: 12/22/16 8:3 6:00 CDT Start Date: 11/22/16 Stop Date: 11/22/16 Status: Discontinued ANES diphenhydrAMINE 12.5 mg, Route: IVP, Drug form: INJ, Q6H, Dosing Weight 68.182, kg, PRN Itching, Start date: 11/22/16 8:37:00 CDT, Duration: 30 day, Stop date: 12/22/16 8:36:00 CDT Start Date: 11/22/16 Stop Date: 11/22/16 Status: Discontinued ANES esmolol 10 mg, Route: IVP, Q5Min, Dosing Weight 68.182, kg, PRN Other -See Comment, Star t date: 11/22/16 8:37:00 CDT, Duration: 5 doses or times, Stop date: Limited # o f times Start Date: 11/22/16 Stop Date: 11/22/16 Status: Discontinued ANES flumazenil 0.2 mg, Route: IVP, PRN, Dosing Weight 68.182, kg, PRN Benzodiazepine Reversal, Initial dose, Start date: 11/22/16 8:37:00 CDT, Duration: 30 day, Stop date: 8:36:00 CDT Start Date: 11/22/16 Stop Date: 11/22/16 Status: Discontinued ANES hydrALAZINE 10 mg, Route: IVP, Q20Min, Dosing Weight 68.182, kg, PRN Elevated BP, Start date : 11/22/16 8:37:00 CDT, Duration: 2 doses or times, Stop date: Limited # of time s Start Date: 11/22/16 Stop Date: 11/22/16 Status: Discontinued ANES HYDROmorphone 0.5 mg, Route: IVP, Q5Min, Dosing Weight 68.182, kg, PRN Pain Score 7-10, Start date: 11/22/16 8:37:00 CDT, Duration: 4 doses or times, Stop date: Limited # of times Start Date: 11/22/16 Stop Date: 11/22/16 Status: Discontinued ANES labetalol 10 mg, Route: IVP, Q5Min, Dosing Weight 68.182, kg, PRN Elevated BP, Start date: 11/22/16 8:37:00 CDT, Duration: 5 doses or times, Stop date: Limited # of times Start Date: 11/22/16 Stop Date: 11/22/16 Status: Discontinued ANES meperidine 12.5 mg, Route: IVP, Q30Min, Dosing Weight 68.182, kg, PRN Other -See Comment, F or shivering, Start date: 11/22/16 8:37:00 CDT, Duration: 2 doses or times, Stop date: Limited # of times Start Date: 11/22/16 Stop Date: 11/22/16 Status: Discontinued ANES naloxone 0.4 mg, Route: IVP, Q2MIN, Dosing Weight 68.182, kg, PRN Narcotic Reversal, Star t date: 11/22/16 8:37:00 CDT, Duration: 8 doses or times, Stop date: Limited # o f times Start Date: 11/22/16 Stop Date: 11/22/16 Status: Discontinued ANES ondansetron 4 mg, Route: IVP, ONCE, Dosing Weight 68.182, kg, PRN Nausea & Vomiting, Start date: 11/22/16 8:37:00 CDT Start Date: 11/22/16 Stop Date: 11/22/16 Status: Discontinued ANES oxyCODONE 5 mg, Route: PO, Drug form: TAB, Q4H, Dosing Weight 68.182, kg, PRN Pain Score 4 -6, Start date: 11/22/16 8:37:00 CDT, Duration: 30 day, Stop date: 12/22/16 8:36 :00 CDT Start Date: 11/22/16 Stop Date: 11/22/16 Status: Discontinued ANES promethazine 6.25 mg, Route: IVPB, ONCE, Dosing Weight 68.182, kg, PRN Nausea & Vomiting, Start date: 11/22/16 8:37:00 CDT Start Date: 11/22/16 Stop Date: 11/22/16 Status: Discontinued aspirin 81 mg tablet, enteric coated 81 mg=1 tab, PO, Daily, # 90 tab, 3 Refill(s) Start Date: 11/19/16 Status: Ordered ceFAZolin (ANES) Route: IV, Drug form: INJ, ONCE, Stop date: 11/22/16 8:07:00 CDT Start Date: 11/22/16 Stop Date: 11/22/16 Status: Completed dorzolamide ophthalmic 2% solution 1 drp, BOTH EYES, TID, # 10 mL, 0 Refill(s) Start Date: 11/19/16 Stop Date: 11/19/16 Status: Completed dorzolamide ophthalmic 2% solution 1 drp, BOTH EYES, TID, # 10 mL, 0 Refill(s) Start Date: 11/19/16 Status: Ordered famotidine (ANES) Route: IV, Drug form: INJ, ONCE, Stop date: 11/22/16 8:02:00 CDT Start Date: 11/22/16 Stop Date: 11/22/16 Status: Completed fentaNYL (ANES) Route: IV, Drug form: INJ, ONCE, Stop date: 11/22/16 8:19:00 CDT Start Date: 11/22/16 Stop Date: 11/22/16 Status: Completed ferrous sulfate PO, 0 Refill(s) Start Date: 11/19/16 Status: Ordered hydrochlorothiazide-losartan 12.5 mg-50 mg oral tablet 1 tab, PO, Daily, # 30 tab, 0 Refill(s) Start Date: 11/19/16 Status: Ordered hydromorphone 0.5 mg, Route: IVP, Q3H, Dosing Weight 68.182, kg, PRN Pain Score 4-6, Start emma e: 11/22/16 8:19:00 CDT, Duration: 30 day, Stop date: 12/22/16 8:18:00 CDT Start Date: 11/22/16 Stop Date: 11/22/16 Status: Discontinued hydromorphone (ANES) Route: IV, Drug form: INJ, ONCE, Stop date: 11/22/16 8:02:00 CDT Start Date: 11/22/16 Stop Date: 11/22/16 Status: Completed Keflex 500 mg oral capsule 500 mg=1 cap, PO, QID, X 10 day, # 40 cap, 0 Refill(s) Start Date: 11/22/16 Stop Date: 12/02/16 Status: Ordered Lactated Ringers Injection IV 1000 mL 1,000 mL, Rate: 125 ml/hr, Infuse over: 8 hr, Route: IV, Dosing Weight 68.182 kg , Total Volume: 1,000, Start date: 11/22/16 8:37:00 CDT, Duration: 30 day, Stop date: 12/22/16 8:36:00 CDT Start Date: 11/22/16 Stop Date: 11/22/16 Status: Discontinued Lactated Ringers Injection IV 1000 mL 1,000 mL, Rate: 25 ml/hr, Infuse over: 40 hr, Route: IV, Dosing Weight 68.182 kg , Total Volume: 1,000, Start date: 11/22/16 8:15:00 CDT, Duration: 30 day, Stop date: 12/22/16 8:14:00 CDT Start Date: 11/22/16 Stop Date: 11/22/16 Status: Discontinued lidocaine (ANES) Route: IV, Drug form: INJ, ONCE, Stop date: 11/22/16 8:07:00 CDT Start Date: 11/22/16 Stop Date: 11/22/16 Status: Completed LR 1000 mL INJ (ANES) Route: IV, Total Volume: 1,000, Start date: 11/22/16 7:17:00 CDT, Stop date: 8:17:00 CDT Start Date: 11/22/16 Stop Date: 11/22/16 Status: Completed Lumigan 0.01% ophthalmic solution 1 drp, BOTH EYES, Bedtime, # 5 mL, 4 Refill(s) Start Date: 11/19/16 Status: Ordered Lumigan 0.03% ophthalmic solution 1 drp, OPTH, QPM, # 3 ml, 0 Refill(s) Start Date: 11/19/16 Stop Date: 11/19/16 Status: Completed multivitamin Daily, 0 Refill(s) Start Date: 11/19/16 Status: Ordered ondansetron (ANES) Route: IV, Drug form: INJ, ONCE, Stop date: 11/22/16 8:07:00 CDT Start Date: 11/22/16 Stop Date: 11/22/16 Status: Completed Osteo Bi-Flex 0 Refill(s) Start Date: 11/19/16 Status: Ordered propofol (ANES) Route: IV, Drug form: INJ, ONCE, Stop date: 11/22/16 8:07:00 CDT Start Date: 11/22/16 Stop Date: 11/22/16 Status: Completed tramadol 50 mg, Route: PO, Drug form: TAB, Q6H, Dosing Weight 68.182, kg, PRN Pain Score 1-3, Start date: 11/22/16 8:19:00 CDT, Duration: 30 day, Stop date: 12/22/16 8:1 8:00 CDT Start Date: 11/22/16 Stop Date: 11/22/16 Status: Discontinued tramadol 50 mg, 1 tab, Route: PO, Drug form: TAB, ONCE, Dosing Weight 68.182, kg, Start d ate: 11/22/16 8:22:00 CDT, Stop date: 11/22/16 8:22:00 CDT, .. Notes: Not to exceed 400mg/day. (Same As: Ultram) Start Date: 11/22/16 Stop Date: 11/22/16 Status: Ordered Unknown Home Medication PO, Daily, Refill(s) 0 Start Date: 11/19/16 Stop Date: 11/19/16 Status: Completed Results ELECTROLYTES Most recent to 1 oldest [Reference Range]: Sodium Lvl [135-145 139 mEq/L mEq/L] (11/19/16 2:12 PM) Potassium Lvl 4.0 mEq/L [3.5-5.1 mEq/L] (11/19/16 2:12 PM) Chloride Lvl [95-109 105 mEq/L mEq/L] (11/19/16 2:12 PM) CO2 [24-32 mEq/L] 23 mEq/L *LOW* (11/19/16 2:12 PM) AGAP [10.0-20.0 15.0 mEq/L mEq/L] (11/19/16 2:12 PM) CHEM PANEL Most recent to 1 oldest [Reference Range]: Creatinine Lvl 1.30 mg/dL [0.50-1.40 mg/dL] (11/19/16 2:12 PM) eGFR 39 mL/min/1.73m2 1 *NA* (11/19/16 2:12 PM) BUN [7-22 mg/dL] 47 mg/dL *HI* (11/19/16 2:12 PM) Glucose Lvl [70-99 106 mg/dL mg/dL] *HI* (11/19/16 2:12 PM) Calcium Lvl 8.8 mg/dL [8.5-10.5 mg/dL] (11/19/16 2:12 PM) 1Result Comment: The eGFR is calculated [...] 1 oldest [Reference Range]: WBC [3.7-10.4 K/CMM] 8.3 K/CMM (11/19/16 2:12 PM) RBC [4.20-5.40 4.48 M/CMM M/CMM] (11/19/16 2:12 PM) Hgb [12.0-16.0 g/dL] 13.3 g/dL (11/19/16 2:12 PM) Hct [36.0-48.0 %] 39.9 % (11/19/16 2:12 PM) MCV [80.0-98.0 fL] 89.1 fL (11/19/16 2:12 PM) MCH [27.0-31.0 pg] 29.7 pg (11/19/16 2:12 PM) MCHC [32.0-36.0 33.4 g/dL g/dL] (11/19/16 2:12 PM) RDW [11.5-14.5 %] 13.2 % (11/19/16 2:12 PM) Platelet [133-450 227 K/CMM K/CMM] (11/19/16 2:12 PM) MPV [7.4-10.4 fL] 8.8 fL (11/19/16 2:12 PM) Segs [45.0-75.0 %] 71.9 % (11/19/16 2:12 PM) Lymphocytes 14.2 % [20.0-40.0 %] *LOW* (11/19/16 2:12 PM) Monocytes [2.0-12.0 11.2 % %] (11/19/16 2:12 PM) Eosinophils [0.0-4.0 1.7 % %] (11/19/16 2:12 PM) Basophils [0.0-1.0 1.0 % %] (11/19/16 2:12 PM) Segs-Bands # 6.0 K/CMM [1.5-8.1 K/CMM] (11/19/16 2:12 PM) Lymphocytes # 1.2 K/CMM [1.0-5.5 K/CMM] (11/19/16 2:12 PM) Monocytes # [0.0-0.8 0.9 K/CMM K/CMM] *HI* (11/19/16 2:12 PM) Eosinophils # 0.1 K/CMM [0.0-0.5 K/CMM] (11/19/16 2:12 PM) Basophils # [0.0-0.2 0.1 K/CMM K/CMM] (11/19/16 2:12 PM) Immunizations No data available for this section Procedures Procedure Date Related Diagnosis Body Site Hysterectomy Neck procedure Operation ORIF - Open reduction and internal fixation of fracture Social History Social History Type Response Smoking Status Never smoker; Exposure to Tobacco Smoke None; Cigarette Smoking Last 365 Days No; Reg Smoking Cessation Counseling No Assessment and Plan No data available for this section
--- NOTE | 2018-08-01 17:20 | NUR ---
RECEIVED REPORT FROM RACHEL RECINOS TO ASSUME PATIENT'S CARE. PT ARRIVED BY EMS INTO ER 6
[2018-08-01 18:26] LABS: BASOPHILS # (AUTO) 0.1 (0.0-0.1); BASOPHILS % 1.3 % (0.0-1.0); EOSINOPHILS # (AUTO) 0.1 (0.0-0.4); EOSINOPHILS % 1.6 % (0.0-6.0); HEMATOCRIT 40.5 % (34.2-44.1); HEMOGLOBIN 13.5 g/dL (12.0-16.0); LYMPHOCYTES # (AUTO) 1.6 (1.0-3.2); LYMPHOCYTES % 19.1 % (18.0-39.1); MEAN CORPUSCULAR HEMOGLOBIN 29.7 pg (28-32); MEAN CORPUSCULAR HGB CONC 33.3 g/dL (31-35); MONOCYTES # (AUTO) 0.9 (0.2-0.8); MONOCYTES % 10.6 % (4.4-11.3); NEUTROPHILS # (AUTO) 5.6 (2.1-6.9); NEUTROPHILS % 66.9 % (38.7-80.0); PLATELET COUNT 266 x10e3/uL (140-360); RED BLOOD COUNT 4.55 x10e6/uL (3.6-5.1); RED CELL DISTRIBUTION WIDTH 15.2 % (11.7-14.4)
--- NOTE | 2018-08-01 18:48 | Diagnostic Imaging Report ---
KNEE LEFT THREE VIEWS - 3 views HISTORY: Pain COMPARISON: None available. FINDINGS: Limited by generalized demineralization. Severe tricompartmental degenerative changes. No definite evidence of acute displaced fracture or dislocation. Vascular calcifications. IMPRESSION: Severe tricompartmental degenerative changes. No definite evidence of acute displaced fracture or dislocation. Signed by: Dr. Ryan Moya MD on 08/01/2018 6:45 PM
--- NOTE | 2018-08-01 18:50 | Diagnostic Imaging Report ---
LOWER LEG LEFT - 3 views HISTORY: Pain COMPARISON: None available. FINDINGS: Limited by generalized demineralization. No evidence of acute displaced fracture or dislocation. Vascular calcification. IMPRESSION: Limited as above. No evidence of acute fracture or dislocation of the left tibial/fibula. Signed by: Dr. Ryan Myoa MD on 08/01/2018 6:46 PM
[2018-08-01 18:51] LABS: ALBUMIN 3.1 g/dL (3.5-5.0); ANION GAP 14.1 mmol/L (8-16); CALCIUM 8.8 mg/dL (8.4-10.2); CREATININE, SERUM 1.16 mg/dL (0.57-1.11); POTASSIUM 3.1 mmol/L (3.5-5.1)
[2018-08-01 18:57] LABS: CREATINE KINASE MB 1.4 ng/mL (0-5.0)
--- NOTE | 2018-08-01 18:57 | Diagnostic Imaging Report ---
PELVIS AP 1-2 VIEWS - 1 view HISTORY: Weakness and left knee pain. COMPARISON: None available. FINDINGS: Very limited study due to generalized demineralization. There is intramedullary daphne and screw fixation of the left femoral neck. Hardware is intact. Partially imaged degenerative changes of the lower lumbar spine. Tiny pelvic phlebolith. IMPRESSION: Limited study due to generalized demineralization. No definite evidence of acute displaced fracture or dislocation. Internal fixation of the left femoral neck fracture with intact appearing hardware. Signed by: Dr. Ryan Moya MD on 08/01/2018 6:54 PM
--- NOTE | 2018-08-01 19:04 | Diagnostic Imaging Report ---
Exam: Head CT without contrast History: Progressive weakness Comparison studies: None Technique: Axial images were obtained from the skull base to the vertex. Coronal and sagittal images reconstructed from the axial data. Dose modulation, iterative reconstruction, and/or weight based adjustment of the mA/kV was utilized to reduce the radiation dose to as low as reasonably achievable. Radiation dose: Total DLP: 832 mGy*cm. Estimated effective dose: DLP x 0.015 Intravenous contrast: None Findings: Scalp: No abnormalities. Bones: No fractures, blastic or lytic lesions. Brain sulci: Mildly prominent. Ventricles: Mild compensatory dilatation. No hydrocephalus. Extra-axial spaces: No masses, no fluid collection. Parenchyma: No mass, acute hemorrhage or acute or chronic cortical vascular insults. Confluent hypodensities in the supratentorial white matter are nonspecific but may reflect chronic microvascular ischemic changes. Evaluation for acute subcortical ischemia is limited due to degree confluent white matter changes Sellar/suprasellar region: No abnormalities. Craniocervical junction: Patent foramen magnum. No Chiari one malformation. Incidental findings: Atherosclerotic calcifications in the carotid siphons. IMPRESSION: No acute intracranial abnormalities. Specifically, no mass, acute hemorrhage or acute cortical vascular infarcts. Chronic findings: 1. Mild generalized volume loss. 2. Severe microvascular ischemic changes. Signed by: Dr. Ti Robins M.D. on 08/01/2018 7:00 PM
[2018-08-01] MEDS ORDERED: POTASSIUM CHLORIDE 20 MEQ TAB CR PO ONE (19:15)
--- OUTSIDE RECORDS SUMMARY | 2018-08-01 19:24 | XMS REPORT ---
Author Author [facility] Address Unknown Phone Unavailable Care Team Providers Care Patient Services Rep Name Role Phone Cherie MCKINNEY Unavailable Unavailable Problems This patient has no known problems. Allergies, Adverse Reactions, Alerts This patient has no known allergies or adverse reactions. Medications This patient has no known medications. Results Test Description Test Time Test Comments Text Results Atomic Results Result Comments CT BRAIN WO 2018-08-01 18:58:00 [place] [address] Patient Name: NAVJOT SUNSHINE MR #: [id number] : 1935 Age/Sex: 83/F Req #: [id number] [facility] Physician: Ordered by: RAVI MCKINNEY MD Report #: [id number] Location: ER Room/Bed: Procedure: [id number] CT/CT BRAIN WO Exam Date: 08/01/18 Exam Time: 1844 REPORT STATUS: Signed Exam: Head CT without contrast History: Progressive weakness Comparison studies: None Technique: Axial images were obtained from the skull base to the vertex. Coronal and sagittal images reconstructed from the axial data. Dose modulation, iterative reconstruction, and/or weight based adjustment of the mA/kV was utilized to reduce the radiation dose to as low as reasonably achievable. Radiation dose: Total DLP: 832 mGy*cm. Estimated effective dose: DLP x 0.015 Intravenous contrast: None Findings: Scalp: No abnormalities. Bones: No fractures, blastic or lytic lesions. Brain sulci: Mildly prominent. Ventricles: Mild compensatory dilatation. No hydrocephalus. Extra-axial spaces: No masses, no fluid collection. Parenchyma: No mass, acute hemorrhage or acute or chronic cortical vascular insults. Confluent hypodensities in the supratentorial white matter are nonspecific but may reflect chronic microvascular ischemic changes. Evaluation for acute subcortical ischemia is limited due to degree confluent white matter changes Sellar/suprasellar region: No abnormalities. Craniocervical junction: Patent foramen magnum. No Chiari one malformation. Incidental findings: Atherosclerotic calcifications in the carotid siphons. IMPRESSION: No acute intracranial abnormalities. Specifically, no mass, acute hemorrhage or acute cortical vascular infarcts. Chronic findings: 1. Mild generalized volume loss. 2. Severe microvascular ischemic changes. Signed by: Dr. Bob Robins M.D. on 08/01/2018 7:00 PM Dictated By: BOB ROBINS MD 99 Transcribed By: VIJAYA on 08/01/181899 COPY TO: RAVI MCKINNEY MD PELVIS AP 1-2 VIEWS 2018-08-01 18:52:00 [place] [address] Patient Name: NAVJOT SUNSHINE MR #: [id number] : 1935 Age/Sex: 83/F Req #: [id number] Adm Physician: Ordered by: RAVI MCKINNEY MD Report #: [id number] Location: ER Room/Bed: Procedure: [id number] DX/PELVIS AP 1-2 VIEWS Exam Date: 08/01/18 Exam Time: 1730 REPORT STATUS: Signed PELVIS AP 1-2 VIEWS - 1 view HISTORY: Weakness an d left knee pain. COMPARISON: None available. FINDINGS: Very limited study due to generalized demineralization. There is intramedullary daphne and screw fixation of the left femoral neck. Hardware is intact. Partially imaged degenerative changes of the lower lumbar spine. Tiny pelvic phlebolith. IMPRESSION: Limited study due to generalized demineralization. No definite evidence of acute displaced fracture or dislocation. Internal fixation of the left femoral neck fracture with intact appearing hardware. Signed by: Dr. Ryan Lea MD on 08/01/2018 6:54 PM Dictated By: RYAN LEA MD 53 Transcribed By: VIJAYA on 08/01/181853 COPY TO: RAVI MCKINNEY MD LOWER LEG LEFT 2018-08-01 18:45:00 [place] [address] Patient Name: NAVJOT SUNSHINE MR #: [id number] : 1935 Age/Sex: 83/F Req #: [id number] Adm Physician: Ordered by: RAVI MCKINNEY MD Report #: [id number] Location: ER Room/Bed: Procedure: [id number] DX/LOWER LEG LEFT Exam Date: 08/01/18 Exam Time: 1730 REPORT STATUS: Signed LOWER LEG LEFT - 3 views HISTORY: Pain COMPARISON: Non e available. FINDINGS: Limited by generalized demineralization. No evidence of acute displaced fracture or dislocation. Vascular calcification. IMPRESSION: Limited as above. No evidence of acute fracture or dislocation of the left tibial/fibula. Signed by: Dr. Ryan Lea MD on 08/01/2018 6:46 PM Dictated By: RYAN LEA MD 45 Transcribed By: VIJAYA on 08/01/181845 COPY TO: RAVI MCKINNEY MD KNEE LEFT THREE VIEWS 2018-08-01 18:43:00 [facility] [address] [place] [address] Patient Name: NAVJOT SUNSHINE MR #: [id number] : 1935 Age/Sex: 83/F Req #: [id number] Adm Physician: Ordered by: RAVI MCKINNEY MD Report #: [id number] Location: ER Room/Bed: Procedure: [id number] DX/KNEE LEFT THREE VIEWS Exam Date: 08/01/18 Exam Time: 1730 REPORT STATUS: Signed KNEE LEFT THREE VIEWS - 3 views HISTORY: Pain C OMPARISON: None available. FINDINGS: Limited by generalized demineralization. Severe tricompartmental degenerative changes. No definite evidence of acute displaced fracture or dislocation. Vascular calcifications. IMPRESSION: Severe tricompartmental degenerative changes. No definite evidence of acute displaced fracture or dislocation. Signed by: Dr. Ryan Lea MD on 08/01/2018 6:45 PM Dictated By: RYAN LEA MD 44 Transcribed By: VIJAYA on 08/01/181844 COPY TO: RAVI MCKINNEY MD
[2018-08-01] MEDS ORDERED: VYZULTA OU (22:50)
[2018-08-01] MEDS ORDERED: OXYBUTYNIN CHLOR5 MG PO (22:50)
[2018-08-01] MEDS ORDERED: POTASSIUM CHLO20 ME1 PO (22:50)
[2018-08-01] MEDS ORDERED: PANTOPRAZOLE SO40 MG PO (22:50)
[2018-08-01] MEDS ORDERED: LOSARTAN-HCTZ1 EACH PO (22:50)
[2018-08-01] MEDS ORDERED: DORZOLAMIDE HCL10 ML OU (22:50)
[2018-08-01] MEDS ORDERED: BUMETANIDE1 MG PO (22:50)
[2018-08-01] MEDS ORDERED: LUMIGAN2.5 M1 OU (22:50)
[2018-08-01] MEDS ORDERED: AZOPT10 ML (22:50)
[2018-08-01 23:35] VITALS: BP 111/56
--- NOTE | 2018-08-01 23:58 | NUR ---
PATIENT RECEIVED FROM THE EMERGENCY DEPARTMENT PER STRETCHER AT 2255. SHE'S ALERT, ORIENTED X3, CONFUSION NOTED WHILE TALKING WITH THE PATIENT. HER EYES ARE RED WITHOUT DRAINAGE, REDNESS TO THE BUTTOCK AND THE SACRUM WITH RED RASHES TO THE PERINEUM. REDNESS TO THE LEGS WITH LARGE HEMATOMA OBSERVED TO THE SIDE OF THE LEFT LEG. PATIENT AMBULATES WITH ASSISTANCE, HER GAIT IS VERY UNSTEADY. SHE DENIES PAIN, KEPT CLEAN AND DRY, BED ALARM ON AND CALL LIGHT WITHIN EASY REACH.
[2018-08-02] VITALS (8 sets, daily range): BP systolic 102–119; BP diastolic 56–60
--- NOTE | 2018-08-02 04:15 | NUR ---
PATIENT REPOSITION FOR COMFORT, SHE DENIES PAIN. NO ACUTE DISTRESS OBSERVED, BED ALARM ON AND CALL LIGHT WITHIN EASY REACH.
--- NOTE | 2018-08-02 07:45 | NUR ---
rounded with the night nurse, patient resting, in no distress. patient A&Ox2, aware of nurse change. call fuentes in reach.
[2018-08-02] MEDS ORDERED: NON-FORMULARY MEDICATION (Losartan/Hydrochlorothiazide (Losartan-Hctz 50-12.5 Mg Tab) 1 TA PO SCH (09:00)
[2018-08-02] MEDS ORDERED: LOSARTAN POTASSIUM 25 MG TAB PO SCH (09:30)
[2018-08-02] MEDS: VYZULTA OP SCH (09:45)
--- NOTE | 2018-08-02 10:10 | History and Physical ---
SUBJECTIVE: Patient comes in with difficulty standing, walking, multiple falls, and weakness. HISTORY OF PRESENT ILLNESS: This is an 83-year-old female with a history of hypertension, history of glaucoma, history of blindness and hypertension was usually said to felt until patient has been noted to have recent multiple falls with altered mental status. Patient is confused with the falls. Patient was brought to the emergency room and was admitted for acute mental status changes and also for earlier multiple falls. PAST MEDICAL HISTORY 1. History of hypertension. 2. History of incontinence. 3. History of reflux esophagitis. 4. History of hyperkalemia. 5. History of glaucoma. 6. History of being legally blind. MEDICATIONS: She takes at home are 1. Lumigan 2.5 mg daily. 2. Azopt 10 mL one drop daily. 3. Bumex 1 mg daily. 4. Losartan potassium daily. 5. Oxybutynin 5 mg. 6. Pantoprazole 40 mg. 7. Potassium 20 mEq daily. PAST SURGICAL HISTORY: History of second right hammertoe surgery, otherwise noncontributory. ALLERGIES: NO KNOWN DRUG ALLERGIES PRESENT. SOCIAL HISTORY: History of smoking in the past, but currently nonsmoker. No ETOH, no IV drug abuse, and lives with grand daughter. REVIEW OF SYSTEMS: Unable to get as patient is altered, but as per notes, no chest pain or shortness of breath. No nausea, vomiting, diarrhea. No constipation, no rectal bleeding, and no hematochezia. PHYSICAL EXAMINATION GENERAL: Confused. VITAL SIGNS: Temperature 98.2, pulse of 93, respirations of 19, blood pressure 118/59, pulse oximetry 96%. HEENT: Normocephalic, atraumatic. Pupils reactive. ABDOMEN: Nontender, nondistended. CVS: Tachycardic. EXTREMITIES: No clubbing, no cyanosis, no edema. SKIN: No rashes present and no apparent ulcers present. LABS: White count is 8.36, hemoglobin of 13.5, hematocrit of 40.5. Chemistries: Sodium is 140, potassium is 3.1, creatinine of 1.16, and BUN of 414. ASSESSMENT 1. Acute mental status changes. 2. Frequent falls. 3. Acute kidney injury. 4. Hypertension. 5. History of blindness. PLAN: To continue to monitor the patient. Microbiology: We are going to do a urine culture on her and also a Social Service consult for possible placement because for debility and her mental status changes. FURTHER RECOMMENDATIONS AND CLINICAL COURSE: We will continue to monitor the patient. Possible discharge to residential facility or a SNF facility after two days. Job#: [id number] PUN
[2018-08-02] MEDS: OXYBUTYNIN CHLORIDE 5 MG TAB PO SCH (10:30)
[2018-08-02] MEDS: POTASSIUM CHLORIDE 20 MEQ TAB CR PO SCH (10:30)
[2018-08-02] MEDS: PANTOPRAZOLE SOD 40 MG TABEC PO SCH (10:30)
[2018-08-02] MEDS: DORZOLAMIDE/TIMOLOL/PF 1 EACH DROPERETTE OP SCH ×2 (10:30→18:50)
--- NOTE | 2018-08-02 15:25 | NUR ---
CASE MANAGEMENT INITIAL ASSESSMENT Coat Fitter to bedside to discuss plan of care with patient/family. CM/SW role and care transitions discussed. Anticipated discharge plan discussed along with duration of care. CM/SW discussed patients right to make decisions in care. CM/SW work hours given. Patient lives: IN HOME W SISTER IN LAW Admit/Transfer: BROUGHT TO ER PER [facility] REQUEST FOR DECREASED MENTAL STATUS AND FALLS POA/Emergency contact: MIKE ADAMS @ [phone]. CALLED FOR SNF EVAL, BUT NO ANSWER. Current/Previous Home Health: PT SAYS YES, BUT DOES NOT REMEMBER THE NAME. PCP/Follow-up Care: DR. REYNOSO Current/Previous DME: TEVIN MONTES, [facility] WC AT THE BEDSIDE Other Services: NONE PER PT. Employment Status: NONE Areas of Concerns: STATES SHE DOES NOT WANT TO GO TO A SNF. SAYS SHE WANTS TO STAY HERE IN HER HOME. Referral Needs: PLACEMENT. Education Needs: IMM/LOYA given and signed (if applicable): NEEDS INPT FOR SNF Goal for discharge: PT VERBALIZES SHE WANTS TO RETURN HOME CM/SW left business card at the bedside with contact information. Name and number was also written on the patients whiteboard. Patient verbalized understanding of discussion. CM will follow-up with ongoing discharge and transition of care needs.
--- NOTE | 2018-08-02 15:30 | NUR ---
ORDER RECEIVED FOR SNF EVAL. ATTEMPTED INTERVIEW W PATIENT, BUT PT CONFUSED AT TIMES. UNABLE TO TELL CM WHO TO CALL. CALL TO FELIBERTOASHLEIGH BRYAN ON FACE SHEET @ [phone]. PHONE RANG ONCE ONLY. NO ANSWER, NO VM. INFORMED WARD BEDSIDE NURSE. AGREED FOR CM TO LEAVE SENIOR RESOURCE GUIDE AT THE BEDSIDE. WARD STATES THERE WAS FAMILY AT THE BEDSIDE EARLIER.
[2018-08-02] MEDS: DORZOLAMIDE HCL (OPTH) 10 ML BOTTLE OP SCH ×2 (15:35→17:00)
[2018-08-02] MEDS: BRINZOLAMIDE 1% OPTH SUSP 10 ML BTL OP SCH (15:35)
[2018-08-02] MEDS: BUMETANIDE 1 MG TAB PO SCH (15:35)
--- NOTE | 2018-08-02 19:10 | NUR ---
rounded with oncoming nurse, patient resting, in no distress. notified of nurse change, patient verbalized understanding. call fuentes within reach.
--- NOTE | 2018-08-02 19:15 | NUR ---
Report received and walking rounds complete. Pt slightly lethargic and confused at times but arousal to speech and touch. All safety measures ensured, bed alarm on, and pt call fuentes near. Pt encouraged to use call fuentes for assistance.
[2018-08-02] MEDS: BIMATOPROST(OPTH) 2.5 ML BOTTLE OP SCH (21:48)
[2018-08-03] VITALS (7 sets, daily range): BP systolic 92–137; BP diastolic 51–63
--- NOTE | 2018-08-03 00:33 | NUR ---
Pt given bed bath and barrier cream reapplied to sacrum
--- NOTE | 2018-08-03 01:25 | NUR ---
Pt put on available alt. pressure mattress.
--- NOTE | 2018-08-03 07:05 | NUR ---
report given to oncoming nurse
--- NOTE | 2018-08-03 07:39 | Progress Note ---
DATE:August 03, 2018 SUBJECTIVE: Patient admitted to the hospital for frequent falls and also for altered mental status. The patient currently had physical therapy ordered, but did not participate with them yesterday, did not feel like it. OBJECTIVE VITAL SIGNS: On admission, temperature is 97.7, pulse of 86, respirations of 18, and blood pressure of 107/60. HEENT: Normocephalic, atraumatic. Pupils are reactive to light and accommodation. CVS: S1 and S2 normal. Regular rate and rhythm. ABDOMEN: Nontender and nondistended. EXTREMITIES: No clubbing, no cyanosis, and no edema. MUSCULOSKELETAL: Positive for multiple joints with arthritis. LABORATORY DATA: Patient's laboratory values are pending from today. Hemoglobin was normal yesterday at 13.5 and hematocrit 40.5 with no left shift. Chemistries show a potassium of 3.1, pending today's labs. The patient's bilirubin was 1.3. MEDICATIONS: Bumex 1 mg, potassium chloride 20 mEq, pantoprazole 40 mg for GI prophylaxis and losartan 25 mg, which she will continue. ASSESSMENT AND PLAN 1. Acute mental status changes. The patient is getting better. 2. Chronic falls and debility. The patient needs placement. Physical therapy has been ordered and possible half-way placement in 2 or 3 days. 3. Hypertension. Continue with the same medications. 4. History of glaucoma. Continue with glaucoma medications. 1. Encourage GI intake and also nutritional consult for poor nutrition. Job#: [id number] MICHAEL
[2018-08-03] MEDS: BRINZOLAMIDE 1% OPTH SUSP 10 ML BTL OP SCH (08:15)
[2018-08-03] MEDS: PANTOPRAZOLE SOD 40 MG TABEC PO SCH (08:15)
[2018-08-03] MEDS: DORZOLAMIDE HCL (OPTH) 10 ML BOTTLE OP SCH ×2 (08:15→17:21)
[2018-08-03] MEDS: POTASSIUM CHLORIDE 20 MEQ TAB CR PO SCH (08:15)
[2018-08-03] MEDS: LOSARTAN POTASSIUM 25 MG TAB PO SCH (08:15)
[2018-08-03] MEDS: OXYBUTYNIN CHLORIDE 5 MG TAB PO SCH (08:15)
[2018-08-03] MEDS: BUMETANIDE 1 MG TAB PO SCH (08:15)
[2018-08-03] MEDS: VYZULTA OP SCH (09:00)
[2018-08-03] MEDS: DORZOLAMIDE/TIMOLOL/PF 1 EACH DROPERETTE OP SCH ×2 (10:28→17:21)
--- NOTE | 2018-08-03 19:21 | NUR ---
PT IS RESTING IN BED. NO RESPIRATORY DISTRESS NOTED. BED IN THE LOWEST POSITION, LOCKED, BED ALARM ON, AND CALL LIGHT WITHIN REACH. WILL CONTINUE TO MONITOR.
[2018-08-03] MEDS: BIMATOPROST(OPTH) 2.5 ML BOTTLE OP SCH (20:10)
[2018-08-04] VITALS (7 sets, daily range): BP systolic 94–125; BP diastolic 55–67
[2018-08-04 05:42] LABS: BASOPHILS # (AUTO) 0.1 (0.0-0.1); BASOPHILS % 1.2 % (0.0-1.0); EOSINOPHILS # (AUTO) 0.2 (0.0-0.4); EOSINOPHILS % 1.7 % (0.0-6.0); HEMATOCRIT 37.2 % (34.2-44.1); HEMOGLOBIN 12.1 g/dL (12.0-16.0); LYMPHOCYTES % 22.7 % (18.0-39.1); MEAN CORPUSCULAR HEMOGLOBIN 29.3 pg (28-32); MEAN CORPUSCULAR HGB CONC 32.5 g/dL (31-35); MEAN CORPUSCULAR VOLUME 90.1 fL (81-99); MONOCYTES # (AUTO) 1.1 (0.2-0.8); MONOCYTES % 12.5 % (4.4-11.3); NEUTROPHILS # (AUTO) 5.3 (2.1-6.9); NEUTROPHILS % 61.2 % (38.7-80.0); PLATELET COUNT 230 x10e3/uL (140-360); RED BLOOD COUNT 4.13 x10e6/uL (3.6-5.1)
[2018-08-04 06:05] LABS: ANION GAP 13.3 mmol/L (8-16); CALCIUM 8.3 mg/dL (8.4-10.2); CREATININE, SERUM 1.52 mg/dL (0.57-1.11); POTASSIUM 3.3 mmol/L (3.5-5.1)
--- NOTE | 2018-08-04 06:13 | NUR ---
PT IS RESTING IN BED. NO ACUTE EVENT OCCURRED THROUGHOUT THE NIGHT. WILL CONTINUE TO MONITOR.
--- NOTE | 2018-08-04 07:29 | Progress Note ---
DATE: August 04, 2018 The patient is here for continuous falls and also for acute mental status changes. Today, the patient is alert and oriented times 3. No complaints. OBJECTIVE VITAL SIGNS: Temperature is 96.4, blood pressure is 94/67, pulse of 88, respirations of 18. HEENT: Normocephalic and atraumatic. Pupils reactive to light and accommodation. CV: S1 and S2 normal. Ejection systolic murmur present. ABDOMEN: Nontender and nondistended. EXTREMITIES: No clubbing. No cyanosis. No edema. LABORATORY VALUES: Today's white count is 8.6, hemoglobin is 12.1 and 37.2. Chemistry: Potassium is 3.3, sodium of 137, creatinine is 1.52. ASSESSMENT 1. Acute mental status changes. 2. Debility with frequent falls. 3. Hypertension. 4. Chronic kidney disease. 5. Chronic pain syndrome. PLAN: Continue with therapy. SNF has been ordered. The patient is reluctant for therapy. Will continue to encourage the patient on physical therapy and possible discharge to SNF when accepted. The labs have been reviewed. Continue with the same medications. Job#: [id number] [place]
[2018-08-04] MEDS: PANTOPRAZOLE SOD 40 MG TABEC PO SCH (07:30)
[2018-08-04] MEDS: BUMETANIDE 1 MG TAB PO SCH (09:00)
[2018-08-04] MEDS: LOSARTAN POTASSIUM 25 MG TAB PO SCH (09:00)
[2018-08-04] MEDS: OXYBUTYNIN CHLORIDE 5 MG TAB PO SCH (09:00)
[2018-08-04] MEDS: VYZULTA OP SCH (09:00)
[2018-08-04] MEDS: BRINZOLAMIDE 1% OPTH SUSP 10 ML BTL OP SCH (09:30)
[2018-08-04] MEDS: DORZOLAMIDE HCL (OPTH) 10 ML BOTTLE OP SCH ×2 (09:30→16:35)
[2018-08-04] MEDS: DORZOLAMIDE/TIMOLOL/PF 1 EACH DROPERETTE OP SCH ×2 (09:30→16:35)
[2018-08-04] MEDS: POTASSIUM CHLORIDE 20 MEQ TAB CR PO SCH (09:30)
--- NOTE | 2018-08-04 13:53 | NUR ---
CALLED AND SPOKE WITH MIKE ADAMS SISTER IN LAW [phone] WHOM STATES THAT SHE IS TOO OLD TO HANDLE THIS AND SHE IS TRYING TO FIND A NEPHEW TO MAKE DECISIONS. SHE STATES SHE IS NOT WILLING TO GIVE THAT INFORMATION BECAUSE SHE IS UNSURE IF HE WILL DO ANYTHING YET. SHE TOOK MY NAME AND INFORMATION TO CALL BACK BUT STATES SHE WILL NOT DO ANYTHING YET. ADVISED THAT THE PATIENT IS READY TO DISCHARGE AND SHE STATES THEY HAVE NOT SPOKEN WITH A DOCTOR OR A NURSE YET AND WE CANNOT DISCHARGE, SHE ISNT READY. SHE STATED SHE WILL CALL BACK AND HUNG UP.
--- NOTE | 2018-08-04 14:01 | NUR ---
CALL MADE TO DR. REYNOSO TO CHANGE PT STATUS TO INPT. PT WILL NEED 3 INPATIENT DAYS TO QUALIFY FOR SNF. WILL AWAIT CALL BACK.
--- NOTE | 2018-08-04 18:55 | NUR ---
Nutrition Intervention Note RD Recommendation for Physician: -Continue cardiac diet as ordered -Rec Ensure Enlive TID to promote PO intake -Encourage PO and hydration Plan of Care: RD following, monitoring for tolerance and adequacy Nutrition reason for involvement: MD consult no reason noted Primary Diagnose(s): 1. Acute mental status changes. 2. Debility with frequent falls. PMH: HTN, reflux, glaucoma GI: LBM 08/04 Skin: intact Labs: 08/04 K 3.3 L, Creatinine 1.52 H, Ca 8.3 L Meds: (08/04) KCl Ht: 67in Wt: 141lb BMI: 22.1kg/m2 IBW: 135lb RD Assessment: (08/04/18) Chart reviewed. Labs and meds reviewed. 83yo F, who is admitted for frequent falls and AMS. K was repleted. During my visit, pt reports eating about the same. RN recorded ~25% of PO intake since admission. Pt denies any N/V/D/C or abdominal pain at this time. No reported of recent weight loss. LBM 08/04. No complain of chewing or swallowing difficulty. RD rec Ensure Enlive TID to promote PO intake; discussed with RN through phone. Will continue to monitor and follow. Malnutrition Evaluation (08/04) The patient does not meet criteria for a specified degree of malnutrition at this time. Will re-evaluate at follow-up as appropriate. Nutrition Prescription (Diet Order): cardiac diet Diet Adequacy: Not meeting calorie needs, Not meeting protein needs Diet Education Needs Assessment: Diet education not indicated. Nutrition Care Level: low Nutrition Diagnosis: Inadequate oral intake related to current medical status as evidenced by ~25% PO intake recorded by RN. Goal: Patient will meet 75-100% of estimated needs by follow up Progress: N/A Interventions: Mineral-modified diet, Commercial beverage Monitoring/Evaluation: Total energy intake, Total protein intake, Modified diet, Liquid supplement, Weight change Signed: Gretchen Polk, MS, RD, LD
--- NOTE | 2018-08-04 20:30 | NUR ---
kenrick pal at dr rivero answering service. pt c/o headache. need orders. will await call back.
[2018-08-04] MEDS ORDERED: HYDROCODONE/APAP 5MG-325MG TAB PO PRN (20:45)
[2018-08-04] MEDS: BIMATOPROST(OPTH) 2.5 ML BOTTLE OP SCH (20:47)
--- NOTE | 2018-08-04 20:47 | NUR ---
pt asked for pain med. offered norco. pt does not want to take it if she cant "have a pepsi". no pepsi on unit. offered [employer] [employer] sode instead. refused norco. also is requesting to be "put out in the yard".
[2018-08-05] VITALS: BP 121/69
--- NOTE | 2018-08-05 07:39 | Progress Note ---
DATE: August 05, 2018 Patient is here for multiple falls, history of CVA in the past and also for acute mental status changes. Currently, doing well with no complaints. Patient is not cooperating with physical therapy. She is to be transferred to SNF for continuous care and also for physical therapy. The patient's urine did come back with Klebsiella pneumoniae. Currently, the patient is afebrile. OBJECTIVE VITAL SIGNS: Temperature is 96.8, respirations of 21, blood pressure is 121/69, and pulse ox of 96%. HEENT: Normocephalic. The patient is blind. LUNGS: Clear to auscultation bilaterally. ABDOMEN: Nontender and nondistended. EXTREMITIES: No clubbing. No cyanosis. No edema. Positive for weakness and debility all over. MEDICATIONS: Reviewed and reconciled. LABORATORY VALUES: Yesterday's white count was normal. Chemistry: Yesterday's creatinine is 1.52. ASSESSMENT 1. Acute mental status changes: Plan is to continue antibiotics for UTI, which is Klebsiella. 2. Debility: Needs [facility] facility consult, and when accepted can be transferred with intravenous antibiotics. 3. Chronic kidney disease, which is stable: Will continue monitoring the patient's creatinine. Further recommendations per clinical course. Will continue monitoring the patient. Job#: [id number] ELLIE
[2018-08-05 07:57] VITALS: BP 101/76
[2018-08-05] MEDS: POTASSIUM CHLORIDE 20 MEQ TAB CR PO SCH (08:40)
[2018-08-05] MEDS: DORZOLAMIDE/TIMOLOL/PF 1 EACH DROPERETTE OP SCH ×2 (08:40→17:12)
[2018-08-05] MEDS: BRINZOLAMIDE 1% OPTH SUSP 10 ML BTL OP SCH (08:40)
[2018-08-05] MEDS: OXYBUTYNIN CHLORIDE 5 MG TAB PO SCH (08:40)
[2018-08-05] MEDS: PANTOPRAZOLE SOD 40 MG TABEC PO SCH (08:40)
[2018-08-05] MEDS: DORZOLAMIDE HCL (OPTH) 10 ML BOTTLE OP SCH ×2 (08:40→17:12)
[2018-08-05] MEDS: BUMETANIDE 1 MG TAB PO SCH (08:40)
[2018-08-05] MEDS: VYZULTA OP SCH (09:00)
[2018-08-05] MEDS: LOSARTAN POTASSIUM 25 MG TAB PO SCH (09:00)
--- NOTE | 2018-08-05 10:00 | NUR ---
Patient took IV out, new IV started to L. Wrist 22 G. Patient tolerated well.
[2018-08-05] MEDS: CEFTRIAXONE SOD 1 GM VIAL IV SCH ×2 (10:30→19:40)
[2018-08-05 11:37] VITALS: BP 125/62
--- NOTE | 2018-08-05 13:50 | NUR ---
Visit made by the Spiritual Care Department Pastoral Visitor, Estrellita Weinberg. Pt sleeping soundly and no family present. Pastoral Visitor left a card describing availability of gps navigation installer and instructions on how to contact a gps navigation installer. JHONY LAZAR Youth Nutritional Monitor Spiritual Care Department O: [phone] Pager: [phone] ([phone] number calling from)
--- NOTE | 2018-08-05 14:32 | NUR ---
SPOKE WITH SISTER IN LAW MIKE ADAMS [phone] WHOM STATES THE NEPHEW WILL NOT TAKE CARE OF THIS PATIENT, SHE STATES HE WANTS HER MONEY. SHE STATES SHE WAS TOLD BY A FRIEND THAT IS A CONSTABLE THAT [facility] IS A GOOD PLACE AND THAT IS WHERE SHE WANTS TO THE CLINICALS SENT. WILL FAX TO [phone] AND A Address: [facility] [address], [place] [address]
[2018-08-05 17:08] VITALS: BP 116/59
--- NOTE | 2018-08-05 19:14 | NUR ---
Handoff given to oncoming shift. Pt resting in bed comfortably.
--- NOTE | 2018-08-05 19:30 | NUR ---
Received patient asleep on bed, not in distress, side rails up, bed alarm on.Call light within reached, will continue to monitor accordingly
[2018-08-05 20:00] VITALS: BP 115/59
[2018-08-05 21:00] VITALS: BP 116/59
[2018-08-05] MEDS: BIMATOPROST(OPTH) 2.5 ML BOTTLE OP SCH (22:27)
[2018-08-06] VITALS (7 sets, daily range): BP systolic 98–140; BP diastolic 56–79
--- NOTE | 2018-08-06 07:11 | Progress Note ---
DATE: August 06, 2018 Patient is status post fall with acute mental status changes, urinary tract infection with Klebsiella pneumoniae. The patient is currently receiving antibiotics. OBJECTIVE GENERAL: Alert and oriented times 3. Blind. VITAL SIGNS: Temperature is 97.9, pulse of 92, blood pressure is 120/60, and pulse ox 97%. HEENT: Normocephalic and atraumatic. Pupils are reactive. ABDOMEN: Nontender and nondistended. LUNGS: Clear to auscultation bilaterally. HEART: S1 and S2 normal. Regular rhythm. EXTREMITIES: Trace edema is present. LABORATORY VALUES: None present today. Will order some tomorrow. Last potassium was 3.3, creatinine of 1.52. ASSESSMENT 1. Acute mental status changes. 2. Chronic kidney disease. 3. Anemia. 4. Urinary tract infection with Klebsiella pneumoniae. Physical therapy has been ordered. The patient is reluctant for PT. Will need placement secondary to her mental status changes and also her debility for gait strengthening and also for medication administration. Will continue the patient on Rocephin. Will reduce it to 1 g q.a.m. because of her kidney status. Further recommendations per clinical course. Possible discharge to SNF when accepted. Continue all the other CV medications and medicine for glaucoma. Job#: [id number] ELLIE
--- NOTE | 2018-08-06 07:26 | NUR ---
PATIENT IN BED RESTING WITH NO RESPIRATORY DISTRESS. C/O COLD, WARM BLANKET PROVIDED. REDNESS TO RIGHT HEEL, HEEL PROTECTORS APPLIED. HEMATOMA TO LEFT FOOT, FEET ELEVATED ON PILLOW ,PATIENT REPOSITIONED IN BED. CALL LIGHT AT REACH.
[2018-08-06] MEDS: PANTOPRAZOLE SOD 40 MG TABEC PO SCH (08:11)
[2018-08-06] MEDS: VYZULTA OP SCH (09:00)
[2018-08-06] MEDS: BRINZOLAMIDE 1% OPTH SUSP 10 ML BTL OP SCH (09:00)
[2018-08-06] MEDS: DORZOLAMIDE HCL (OPTH) 10 ML BOTTLE OP SCH ×2 (10:00→17:37)
[2018-08-06] MEDS: DORZOLAMIDE/TIMOLOL/PF 1 EACH DROPERETTE OP SCH ×2 (10:00→17:37)
[2018-08-06] MEDS: LOSARTAN POTASSIUM 25 MG TAB PO SCH (10:02)
[2018-08-06] MEDS: OXYBUTYNIN CHLORIDE 5 MG TAB PO SCH (10:02)
[2018-08-06] MEDS: POTASSIUM CHLORIDE 20 MEQ TAB CR PO SCH (10:02)
[2018-08-06] MEDS: BUMETANIDE 1 MG TAB PO SCH (10:02)
[2018-08-06] MEDS: CEFTRIAXONE SOD 1 GM VIAL IV SCH (10:02)
--- NOTE | 2018-08-06 13:07 | NUR ---
PATIENT ASSISTED WITH DIAPER CHANGE , REPOSITIONED IN BED. CALL LIGHT AT REACH.
[2018-08-06] MEDS ORDERED: POTASSIUM CHLORIDE 20MEQ/100ML 100 ML IV ONE (16:00)
[2018-08-06] MEDS ORDERED: SODIUM CHLORIDE 0.9% 500ML 500 ML ONE (16:47)
--- NOTE | 2018-08-06 17:55 | NUR ---
PATIENT IV INFILTRATED, REMOVED WITH TIP INTACT. NEW IV 20 GAUGE INSERTED TO RIGHT FOREARM. PATIENT TOLERATED PROCEDURE WELL. IV FLUID INFUSING ORDERED.
[2018-08-06] MEDS: DEXTROSE 5%/0.45% SOD CHL 1,000 ML IV SCH (18:58)
--- NOTE | 2018-08-06 20:43 | NUR ---
RECEIVED PT IN BED AOX3 .RESPIRATIONS ARE EVEN AND UNLABORED . REDNESS TO RIGHT LEG AND RT HEEL PROTECTORS APPLIED. REDNESS TO TO LEFT FOOT.CALL LIGHT WITH IN REACH .CONTINUE TO MONITOR
[2018-08-06] MEDS: BIMATOPROST(OPTH) 2.5 ML BOTTLE OP SCH (22:09)
[2018-08-07] VITALS (8 sets, daily range): BP systolic 96–138; BP diastolic 51–93
--- NOTE | 2018-08-07 02:26 | NUR ---
Received patient from day nurse, patient is alert and oriented x2, safety and fall precautions maintained at this time: bed in lowest postition and locked, needed items beside bed and call fuentes placed close to patient, patient instructed to use it to call nurses for any assistance needed, patient verbalized understanding. patient is currently stable will continue to monitor. patient is being monitored at this time for any abnormal hrt rate
[2018-08-07 05:41] LABS: BASOPHILS # (AUTO) 0.1 (0.0-0.1); BASOPHILS % 1.1 % (0.0-1.0); EOSINOPHILS # (AUTO) 0.1 (0.0-0.4); EOSINOPHILS % 0.7 % (0.0-6.0); HEMATOCRIT 38.1 % (34.2-44.1); HEMOGLOBIN 12.6 g/dL (12.0-16.0); LYMPHOCYTES # (AUTO) 1.7 (1.0-3.2); LYMPHOCYTES % 20.1 % (18.0-39.1); MEAN CORPUSCULAR HEMOGLOBIN 30.1 pg (28-32); MEAN CORPUSCULAR HGB CONC 33.1 g/dL (31-35); MEAN CORPUSCULAR VOLUME 90.9 fL (81-99); MONOCYTES # (AUTO) 1.1 (0.2-0.8); MONOCYTES % 12.8 % (4.4-11.3); NEUTROPHILS # (AUTO) 5.5 (2.1-6.9); NEUTROPHILS % 64.7 % (38.7-80.0); PLATELET COUNT 252 x10e3/uL (140-360); RED BLOOD COUNT 4.19 x10e6/uL (3.6-5.1); RED CELL DISTRIBUTION WIDTH 14.6 % (11.7-14.4)
[2018-08-07 06:02] LABS: ANION GAP 15.7 mmol/L (8-16); CALCIUM 8.4 mg/dL (8.4-10.2); CREATININE, SERUM 1.19 mg/dL (0.57-1.11); POTASSIUM 3.7 mmol/L (3.5-5.1)
--- NOTE | 2018-08-07 06:34 | NUR ---
PT RESTED DURING THE NIGHT .DENIES PAIN .PT HAD BATH CONTINUE TO MONITOR
--- NOTE | 2018-08-07 07:11 | NUR ---
REPORT GIVEN TO THE ONCOMING NURSE .CALL LIGHT WITH IN REACH
--- NOTE | 2018-08-07 07:23 | NUR ---
PATIENT IN BED RESTING WITH NO RESPIRATORY DISTRESS. HEEL PROTECTORS IN PLACE, HEMATOMA TO LEFT FOOT INTACT, REDNESS TO GROIN AREA AND BUTTOCKS, DIAPER CHANGED. BED IN LOWER POSITION, CALL LIGHT AT REACH.
--- NOTE | 2018-08-07 07:32 | Progress Note ---
DATE: August 07, 2018 The patient is here for acute mental status changes, frequent falls and debility, age related. The patient is currently complaining of some pain and not being able to eat. Started on some IV fluids yesterday. Ensure is at the bedside, but she is not drinking it. The patient is cooperative but has not been able to eat. Currently on Rocephin for a urinary tract infection. OBJECTIVE VITAL SIGNS: Temperature is 97.5, pulse of 92, respirations of 18, blood pressure is 136/60, and pulse oximetry 98%. HEENT: Normocephalic and atraumatic. The patient is legally blind. CV: S1 and S2 normal. Regular rate and rhythm. Ejection systolic murmur present. ABDOMEN: Nontender and nondistended. EXTREMITIES: No clubbing. No cyanosis. No edema. LABORATORY VALUES: Today's white count is 8.5, hemoglobin 12.6, hematocrit 38. Chemistries: Sodium 138, potassium 3.7, BUN 21, creatinine 1.19. Microbiology: Klebsiella pneumoniae sensitive to Rocephin. ASSESSMENT 1. Urosepsis urinary tract infection. 2. Acute mental status changes. 3. Debility, unspecified and age related. 4. Hypertension. 5. Blindness. PLAN: Disposition is to transfer to SNF. Will need further physical therapy. Patient also has moderate protein energy malnutrition. Will continue monitoring the patient and will continue with nutritional support. For further information, look in the chart. For medicines, please look on the medical sheet. The patient is currently on Rocephin. Job#: [id number]
[2018-08-07] MEDS: PANTOPRAZOLE SOD 40 MG TABEC PO SCH (07:51)
[2018-08-07] MEDS: VYZULTA OP SCH (09:00)
[2018-08-07] MEDS: BUMETANIDE 1 MG TAB PO SCH (09:45)
[2018-08-07] MEDS: LOSARTAN POTASSIUM 25 MG TAB PO SCH (09:45)
[2018-08-07] MEDS: OXYBUTYNIN CHLORIDE 5 MG TAB PO SCH (09:45)
[2018-08-07] MEDS: BRINZOLAMIDE 1% OPTH SUSP 10 ML BTL OP SCH (09:45)
[2018-08-07] MEDS: DORZOLAMIDE HCL (OPTH) 10 ML BOTTLE OP SCH ×2 (09:45→17:19)
[2018-08-07] MEDS: CEFTRIAXONE SOD 1 GM VIAL IV SCH (09:45)
[2018-08-07] MEDS: DORZOLAMIDE/TIMOLOL/PF 1 EACH DROPERETTE OP SCH ×2 (09:45→17:19)
[2018-08-07] MEDS: POTASSIUM CHLORIDE 20 MEQ TAB CR PO SCH (09:46)
--- NOTE | 2018-08-07 11:07 | NUR ---
PATIENT AMBULATING SLOWLY IN THE ROOM WITH PHYSICAL THERAPY, NO RESPIRATORY DISTRESS OBSERVED. WILL CLOSELY MONITOR.
--- NOTE | 2018-08-07 15:35 | NUR ---
PATIENT NOTED WITH HR OF 152. MD NOTIFIED, NEW ORDERS RECEIVED.
[2018-08-07] MEDS ORDERED: DEXTROSE 5%/0.45% SOD CHL 1,000 ML IV ONE (16:00)
[2018-08-07 16:03] LABS: BASOPHILS # (AUTO) 0.1 (0.0-0.1); BASOPHILS % 0.9 % (0.0-1.0); EOSINOPHILS # (AUTO) 0.1 (0.0-0.4); EOSINOPHILS % 0.5 % (0.0-6.0); HEMATOCRIT 39.1 % (34.2-44.1); HEMOGLOBIN 12.5 g/dL (12.0-16.0); LYMPHOCYTES # (AUTO) 1.5 (1.0-3.2); LYMPHOCYTES % 13.9 % (18.0-39.1); MEAN CORPUSCULAR HEMOGLOBIN 29.7 pg (28-32); MEAN CORPUSCULAR VOLUME 92.9 fL (81-99); MONOCYTES # (AUTO) 1.2 (0.2-0.8); MONOCYTES % 11.1 % (4.4-11.3); NEUTROPHILS # (AUTO) 7.7 (2.1-6.9); NEUTROPHILS % 73.1 % (38.7-80.0); PLATELET COUNT 265 x10e3/uL (140-360); RED BLOOD COUNT 4.21 x10e6/uL (3.6-5.1); RED CELL DISTRIBUTION WIDTH 14.6 % (11.7-14.4)
--- NOTE | 2018-08-07 16:03 | NUR ---
ATTEMPTED WOUND CARE CONSULTATION AND SKIN ASSESSMENT. PATIENT'S CURRENT HEART RATE IS 150bpm. PER PRIMARY NURSE AND DIRECTOR JORJE WANGRAYMOND MILL OPERATOR WILL BE ATTEMPTED TOMORROW DUE TO PATIENT'S CURRENT CONDITION. WOUND CARE TO Ap Addendum: 08/07/18 at 1608 by Mishel Sullivan RN Amended: Links added. Addendum: 08/07/18 at 1609 by Mishel Sullivan RN (CONT) WOUND CARE NURSES TO ATTEMPT CONSULTATION TOMORROW.
--- NOTE | 2018-08-07 16:21 | NUR ---
EKG DONE, FINDINGS AFIB WITH RVR. NOTIFIED, NEW ORDERS RECEIVED.
[2018-08-07 16:29] LABS: CREATINE KINASE MB 4.4 ng/mL (0-5.0)
[2018-08-07] MEDS ORDERED: METOPROLOL TARTRATE INJ 1 MG/ML VIAL IV ONE (16:30)
[2018-08-07] MEDS ORDERED: ENOXAPARIN 30 MG/0.3 ML SYR SC SCH (17:00)
[2018-08-07] MEDS ORDERED: METOPROLOL TARTRATE INJ 1 MG/ML VIAL IV PRN (17:45)
[2018-08-07] MEDS ORDERED: DIGOXIN INJ 0.25 MG/ML 2 ML AMP IV ONE (18:10)
--- NOTE | 2018-08-07 18:29 | NUR ---
New IV started to L wrist, 20G with 1 attempt. Digoxin pushed at this time with HR 171 AFIB RVR confirmed by television repair teacher. Primary nurse, Mak RECINOS made aware. supervisor roller shop made aware.
--- NOTE | 2018-08-07 18:30 | NUR ---
PATIENT IN BED WITH HEAD OF BED ELEVATED TALKING TO FAMILY MEMBERS VISITING. V/S RECHECKED WITH THE READING OF 96.2-242-53-162/72 WITH 98% ON RA. ORDERED DOSE OF DIGOXIN IV GIVEN BY IMCU NURSE. PATIENT IN BED WITH CALL LIGHT AT REACH. WILL CLOSELY MONITOR. FAMILY MEMBER EDUCATED TO NOTIFY THE NURSE BEFORE LEAVING.
--- NOTE | 2018-08-07 19:22 | NUR ---
PATIENT IN BED RESTING WITH NO RESPIRATORY DISTRESS. HR RECHECKED WITH THE READING FLUCTUATING BETWEEN 101 AND 115. WILL CLOSELY MONITOR.
[2018-08-07] MEDS: BIMATOPROST(OPTH) 2.5 ML BOTTLE OP SCH (21:40)
--- NOTE | 2018-08-07 22:25 | NUR ---
called tele for heart rate and rhythm: sinus at 94.
--- NOTE | 2018-08-07 23:32 | NUR ---
patient complaining of nausea, had some vomiting, about 50mls, greenish. Dr. Rothman's office called and spoke to Felecia, waiting for call back, patient heart rate is 98, and denies distress at this time.
[2018-08-08] VITALS (8 sets, daily range): BP systolic 92–145; BP diastolic 49–68
[2018-08-08] MEDS: DEXTROSE 5%/0.45% SOD CHL 1,000 ML IV SCH ×2 (03:12→07:45)
--- NOTE | 2018-08-08 03:34 | NUR ---
called back and ordered 4mg zofran ivp, qhrs n/v.
[2018-08-08] MEDS ORDERED: ONDANSETRON HCL INJ 2MG/ML 2ML 2 MG/ML VIAL IV PRN (03:45)
--- NOTE | 2018-08-08 07:20 | NUR ---
PATIENT IN BED RESTING WITH EYES CLOSED, NO RESPIRATORY DISTRESS OBSERVED. HEEL PROTECTOR REAPPLIED. IV FLUID INFUSING ORDERED. BED IN LOWER POSITION, CALL LIGHT AT REACH.
--- NOTE | 2018-08-08 07:30 | NUR ---
patient endorsed to next shift for continuity of care.
--- NOTE | 2018-08-08 07:37 | Progress Note ---
DATE: August 08, 2018 The patient yesterday had an episode of atrial fibrillation with rapid ventricular response. The patient did complain of some chest tightness. EKG was done and showed AFib. Troponins were trended, and the patient is negative. The patient was given IV metoprolol and IV digoxin. Currently, she has converted back to normal sinus rhythm. The patient currently is on antibiotic for urinary tract infection and encephalopathy. OBJECTIVE VITAL SIGNS: Temperature is 97.6, pulse of 89, respirations of 19, blood pressure is 122/57. GENERAL: The patient is alert and oriented times 2. Responds to verbal stimulus. Cachectic. HEENT: Normocephalic and atraumatic. CV: S1 and S2 irregular. ABDOMEN: Nontender and nondistended. EXTREMITIES: No clubbing. No cyanosis. No edema. LABORATORY VALUES: Hemoglobin is 12.5, hematocrit 39.1. Chemistries: Sodium 138, potassium 3.7, BUN 21, creatinine 1.19. ASSESSMENT 1. Urosepsis with urinary tract infection. 2. Encephalopathy. 3. Acute mental status changes. 4. Atrial fibrillation with rapid ventricular response, which has been corrected. The patient is back in normal sinus rhythm. 5. Hypertension. PLAN: Continue the same medications. Will continue the metoprolol 25 mg twice a day. The patient also has debility and needs transfer to SNF. The patient also has protein energy malnutrition, moderate. The patient will get a nutrition consult and also continue with IV fluids. The patient also is to get an echocardiogram today. We will follow up with that. Further recommendations per clinical course. Job#: [id number]
[2018-08-08] MEDS: PANTOPRAZOLE SOD 40 MG TABEC PO SCH (07:47)
[2018-08-08] MEDS: BUMETANIDE 1 MG TAB PO SCH (09:00)
[2018-08-08] MEDS: VYZULTA OP SCH (09:00)
[2018-08-08] MEDS: OXYBUTYNIN CHLORIDE 5 MG TAB PO SCH (09:00)
[2018-08-08] MEDS: LOSARTAN POTASSIUM 25 MG TAB PO SCH (09:00)
[2018-08-08] MEDS: POTASSIUM CHLORIDE 20 MEQ TAB CR PO SCH (09:00)
[2018-08-08] MEDS: BRINZOLAMIDE 1% OPTH SUSP 10 ML BTL OP SCH (09:18)
[2018-08-08] MEDS: CEFTRIAXONE SOD 1 GM VIAL IV SCH (09:18)
[2018-08-08] MEDS: DORZOLAMIDE HCL (OPTH) 10 ML BOTTLE OP SCH ×2 (09:18→17:19)
[2018-08-08] MEDS: DORZOLAMIDE/TIMOLOL/PF 1 EACH DROPERETTE OP SCH ×2 (09:18→17:19)
--- NOTE | 2018-08-08 10:35 | Consultation ---
DATE OF CONSULTATION: August 07, 2018 CARDIOLOGY CONSULTATION REASON FOR CONSULTATION: AFib with RVR. HPI: This is an 83-year-old female that presented with altered mental status. Patient is confused and not able to follow any commands. According to medical record, she had multiple falls, was confused and was brought in for further evaluation. She denied any chest pain or palpitation. She was found to be in AFib with RVR, and cardiology was consulted. This morning she converted back to normal sinus rhythm. PAST SURGICAL HISTORY: Hypertension, incontinence, GERD, hypokalemia, glaucoma, legally blind, debility. PAST SURGICAL HISTORY: Second right hammertoe surgery. FAMILY HISTORY: Noncontributory. SOCIAL HISTORY: No smoking. No drinking. MEDICATIONS: See med list. ALLERGIES: SHE IS NOT ALLERGIC TO ANY MEDICATION. REVIEW OF SYSTEMS: Unable to obtain due to confusion. PHYSICAL EXAMINATION VITAL SIGNS: Temperature 97.6, heart rate 89, blood pressure 122/57, respirations 19, oxygen saturation 97% on room air. GENERAL: She is confused but alert. HEENT: Mucous membrane moist. NECK: Supple. LUNGS: Bilateral clear to auscultation. CARDIOVASCULAR: S1 and S2 present. ABDOMEN: Soft. NEUROLOGICAL: She is able to move her extremities. EXTREMITIES: Bilateral lower extremities with no edema. LABS: Sodium 138, potassium 3.7, chloride 108, CO2 18, BUN 21, creatinine 1.19, and glucose 95. White blood cell 10.5, hemoglobin 12.5, hematocrit 39.1, and platelets of 265,000. IMPRESSION 1. Paroxysmal atrial fibrillation. 2. Generalized weakness. 3. Cerebrovascular accident. 4. Hypertension. 5. Altered mental status. 6. History of falls. 7. Renal insufficiency. 8. She is legally blind. ASSESSMENT AND PLAN 1. Heart rate was initially high, but it is controlled in the 80s and back to normal sinus rhythm. 2. Will continue Lovenox, possible p.o. anticoagulation before discharge. 3. Will get echocardiogram to assess the LV and the valve function. 4. Will get bilateral carotid Doppler to rule out any occlusion. 5. Will check the TSH. 6. Will put her on p.o. metoprolol. Further cardiac workup pending clinical course. Thank you for this consultation. DICTATED BY RORY RIVERA NP Job#: [id number] RI
--- NOTE | 2018-08-08 10:45 | NUR ---
PATIENT IN ED RESTING WITH NO RESPIRATORY DISTRESS. REFUSED HER MEDICATIONS AFTER 3 ATTEMPTS STATING " I DON'T WANT IT". BED IN LOWER POSITION, CALL LIGHT AT REACH. WILL CLOSELY MONITOR.
[2018-08-08] MEDS ORDERED: NYSTATIN 15 GM POWDER UD BTL TOP PRN (11:45)
[2018-08-08] MEDS: ENOXAPARIN INJ 80 MG/0.8 ML SYR SC SCH ×2 (12:00→21:58)
--- NOTE | 2018-08-08 14:00 | NUR ---
BED SIDE CAROTID DOPPLER COMPLETED. ENSURE OFFERED PATIENT REFUSED. REPOSITIONED IN BED, CALL LIGHT AT REACH.
--- NOTE | 2018-08-08 16:55 | NUR ---
WOUND CARE CONSULT: THIS IS A 83 YEAR OLD FEMALE PATIENT ADMITTED TO [facility] FOR CVA AND FALLS. HEAD TO TOE SKIN ASSESSMENT PERFORMED. PATIENT HAS BLANCHABLE REDNESS TO BILATERAL HEELS WELL INCONTINENT DERMATITIS TO PERINEUM AND BILATERAL BUTTOCKS. THERE ARE NO OTHER AREAS OF CONCERN NOTED AT THIS TIME. PT EDUCATED ON PLAN OF CARE, AND TREATMENT. STATES UNDERSTANDING. LABS: WBC: 8.51 ALB: 3.1 URINE + FOR KLEBSIELLA PNEUMONIAE. RECOMMENDATION: CONTINUE WITH ALTERNATING PRESSURE RELIEF MATTRESS. CONTINUE WITH BILATERAL HEEL PROTECTORS WITH PILLOW SUSPENSION. TURN EVERY 2 HOURS AND PRN. NURSING TO MIX VENELEX WITH NYSTATIN POWDER AND APPLY TO PERINEUM AND BILATERAL BUTTOCKS BID AND PRN. THANK YOU FOR THIS WOUND CARE CONSULT. Addendum: 08/08/18 at 1701 by Gracie Ralph RN Amended: Links added.
--- NOTE | 2018-08-08 20:00 | NUR ---
Received patient from the day nurse, patient is alert and oriented x1, introduced self to patient and patient encouraged to call for help. patient verbalized understanding. safety and fall precaution maintained as per hospital protocol: bed in lowest position and locked, needed items beside bed and call fuentes placed within patient reach, patient instructed to use it to call nurses for help, needed items close to patient, bed in lowest position and locked, patient on bed alarm now. patient is currently stable will continue to monitor.
[2018-08-08] MEDS: BIMATOPROST(OPTH) 2.5 ML BOTTLE OP SCH (21:45)
[2018-08-09] VITALS (8 sets, daily range): BP systolic 114–142; BP diastolic 56–89
[2018-08-09] MEDS: DEXTROSE 5%/0.45% SOD CHL 1,000 ML IV SCH ×2 (00:55→05:55)
[2018-08-09 06:34] LABS: BASOPHILS # (AUTO) 0.1 (0.0-0.1); BASOPHILS % 0.8 % (0.0-1.0); EOSINOPHILS % 0.2 % (0.0-6.0); HEMATOCRIT 36.6 % (34.2-44.1); HEMOGLOBIN 12.1 g/dL (12.0-16.0); LYMPHOCYTES # (AUTO) 1.5 (1.0-3.2); LYMPHOCYTES % 15.6 % (18.0-39.1); MEAN CORPUSCULAR HEMOGLOBIN 30.2 pg (28-32); MEAN CORPUSCULAR HGB CONC 33.1 g/dL (31-35); MEAN CORPUSCULAR VOLUME 91.3 fL (81-99); MONOCYTES # (AUTO) 1.3 (0.2-0.8); MONOCYTES % 12.9 % (4.4-11.3); NEUTROPHILS # (AUTO) 6.8 (2.1-6.9); NEUTROPHILS % 69.9 % (38.7-80.0); PLATELET COUNT 318 x10e3/uL (140-360); RED BLOOD COUNT 4.01 x10e6/uL (3.6-5.1); RED CELL DISTRIBUTION WIDTH 14.2 % (11.7-14.4)
[2018-08-09 06:53] LABS: ANION GAP 13.8 mmol/L (8-16); CALCIUM 8.8 mg/dL (8.4-10.2); POTASSIUM 3.8 mmol/L (3.5-5.1)
--- NOTE | 2018-08-09 07:09 | NUR ---
Patient endorsed to next shift for continuity of care.
--- NOTE | 2018-08-09 07:30 | NUR ---
Pt in bed with eyes closed, arouses with verbal stimuli. Pt is AOX2-3, can be forgetful at times. Denies any pain at this time. Pt not eating very much. Heel protectors in place to bilateral heels and turn q2h in place. Continues on IVF @ 50ml/hr and well tolerated.
[2018-08-09] MEDS ORDERED: NYSTATIN 15 GM POWDER UD BTL TOP SCH (09:00)
[2018-08-09] MEDS: VYZULTA OP SCH (09:00)
[2018-08-09] MEDS ORDERED: SODIUM CHLORIDE 0.9% 50ML 50 ML ONE (09:18)
[2018-08-09] MEDS: DORZOLAMIDE/TIMOLOL/PF 1 EACH DROPERETTE OP SCH ×2 (09:39→17:10)
[2018-08-09] MEDS: BRINZOLAMIDE 1% OPTH SUSP 10 ML BTL OP SCH (09:39)
[2018-08-09] MEDS: PANTOPRAZOLE SOD 40 MG TABEC PO SCH (09:39)
[2018-08-09] MEDS: CEFTRIAXONE SOD 1 GM VIAL IV SCH (09:39)
[2018-08-09] MEDS: BUMETANIDE 1 MG TAB PO SCH (09:40)
[2018-08-09] MEDS: POTASSIUM CHLORIDE 20 MEQ TAB CR PO SCH (09:40)
[2018-08-09] MEDS: LOSARTAN POTASSIUM 25 MG TAB PO SCH (09:40)
[2018-08-09] MEDS: BALSAM PERU/CASTOR OIL 60 GM OINT...G. TP SCH ×2 (09:40→17:10)
[2018-08-09] MEDS: NYSTATIN 15 GM POWDER UD BTL TOP SCH ×2 (09:40→17:10)
[2018-08-09] MEDS: OXYBUTYNIN CHLORIDE 5 MG TAB PO SCH (09:40)
[2018-08-09] MEDS: ENOXAPARIN INJ 80 MG/0.8 ML SYR SC SCH ×2 (09:40→21:15)
[2018-08-09] MEDS: DORZOLAMIDE HCL (OPTH) 10 ML BOTTLE OP SCH ×2 (09:40→17:10)
--- NOTE | 2018-08-09 13:30 | NUR ---
Nutrition Intervention Note RD Recommendation(s) for Physician: Place a small bore nasoenteric tube to the small bowel (duodenum or jejunum) and initiate Jevity 1.2 at 60ml/hr 200ml water flush every 6 hours. Continue diet and commercial beverage as ordered. Encourage Po intake and assist with meals Plan of Care: RD following, monitoring for tolerance and adequacy Nutrition reason for involvement: MD Consult RD Assessment 08/09 Consult received. Pt with an altered mental status and confusion who has been refusing to eat or eating very little for about one week. Principal Problems/Diagnoses: CVA, falls PMH:Reflux esophagitis, altered mental status, HTN IVF: KCL 20meq GI:normal Skin: Intact Labs: 08/09 reviewed Meds: MAR reviewed 08/09 Malnutrition Evaluation (08/09/2018) The patient does not meet criteria for a specified degree of malnutrition at this time. Will re-evaluate at follow-up as appropriate. Diet Education Needs Assessment: Diet education indicated, but patient not appropriate for education at this time. Ht:67 Wt:143.02lbs BMI:22.4kg/m2 IBW:135lbs Estimated Nutritional Needs: calories/day 1625 - 1950 kcals at 25-30 kcals/kg/bw g protein/xhy81-22.5g of protein at 1-1.5g/kg/bw Calories: (-) Weight used : 143lbs Protein : (-) Weight used: 143lbs Nutrition Prescription (Diet Order):Cardiac diet Food Allergies: No known food allergies Diet Adequacy: Not meeting calorie needs, Not meeting protein needs) Tolerance: Tolerating PO Nutrition Care Level: Nutrition Diagnosis: Inadequate oral food and beverage intake related to altered mental status as evidenced by the patient eating less than 505 of meal tray Goal:Patient will meet 75-100% of estimated needs by follow up Progress: Not Progressing Interventions: Recommending nutrition support via NDT. Providing a Cardiac diet with Ensure Enlive. Encourage Po intake and assist with meals Monitoring/Evaluation: PO intake, lab results, I/Os, wt Tez Ramirez RD, LD, CNSC
--- NOTE | 2018-08-09 19:33 | NUR ---
Change of shift with morning nurse. Rounds complete. Pt stable in bed. Tele #[phone]
[2018-08-09] MEDS: BIMATOPROST(OPTH) 2.5 ML BOTTLE OP SCH (21:15)
[2018-08-10] VITALS (8 sets, daily range): BP systolic 119–134; BP diastolic 58–69
--- NOTE | 2018-08-10 06:57 | NUR ---
Reported given to morning nurse. Pt stable in bed.
[2018-08-10] MEDS: POTASSIUM CHLORIDE 20 MEQ TAB CR PO SCH (09:00)
[2018-08-10] MEDS: LOSARTAN POTASSIUM 25 MG TAB PO SCH (09:00)
[2018-08-10] MEDS: DORZOLAMIDE HCL (OPTH) 10 ML BOTTLE OP SCH ×2 (09:00→16:20)
[2018-08-10] MEDS: VYZULTA OP SCH (09:00)
[2018-08-10] MEDS: ENOXAPARIN INJ 80 MG/0.8 ML SYR SC SCH ×2 (09:00→21:47)
[2018-08-10] MEDS: DORZOLAMIDE/TIMOLOL/PF 1 EACH DROPERETTE OP SCH ×2 (09:00→16:20)
[2018-08-10] MEDS: BRINZOLAMIDE 1% OPTH SUSP 10 ML BTL OP SCH (09:00)
[2018-08-10] MEDS: CEFTRIAXONE SOD 1 GM VIAL IV SCH (09:00)
[2018-08-10] MEDS: BUMETANIDE 1 MG TAB PO SCH (09:00)
[2018-08-10] MEDS: NYSTATIN 15 GM POWDER UD BTL TOP SCH ×2 (09:00→16:20)
[2018-08-10] MEDS: OXYBUTYNIN CHLORIDE 5 MG TAB PO SCH (09:00)
[2018-08-10] MEDS: BALSAM PERU/CASTOR OIL 60 GM OINT...G. TP SCH ×2 (09:00→16:20)
[2018-08-10] MEDS: PANTOPRAZOLE SOD 40 MG TABEC PO SCH (09:00)
--- NOTE | 2018-08-10 11:00 | NUR ---
Dr. Cash to see pt and notified him pt is not eating very well. No new orders received.
--- NOTE | 2018-08-10 19:20 | NUR ---
Completed bedside rounds with morning nurse. Received pt stable sitting in bed 30 degrees. Alert to name. Confused to place, time, and situation. No distress noted. Will continue to monitor.
[2018-08-10] MEDS: BIMATOPROST(OPTH) 2.5 ML BOTTLE OP SCH (21:47)
[2018-08-10] MEDS: DEXTROSE 5%/0.45% SOD CHL 1,000 ML IV SCH (22:08)
[2018-08-11] VITALS (8 sets, daily range): BP systolic 104–159; BP diastolic 54–72
--- NOTE | 2018-08-11 07:26 | NUR ---
PATIENT IN BED RESTING WITH NO RESPIRATORY DISTRESS. HEMATOMA TO THE SIDE OF LEFT LEG, HEEL PROTECTORS IN PLACE. IV FLUID INFUSING ORDERED. BED IN LOWER POSITION, CALL LIGHT AT REACH.
--- NOTE | 2018-08-11 07:29 | Progress Note ---
DATE: August 11, 2018 SUBJECTIVE: Patient is confused. Over the weekend, the patient had a CT of the brain done, did not show any CVA. Patient is converted to sinus rhythm, but had run of AFib with RVR. Patient's medication has been reviewed. PHYSICAL EXAMINATION: VITAL SIGNS: Temperature is 96.9, pulse is 91, blood pressure is 127/76, respiration of 19, SpO2 at 98%. GENERAL: Patient on examination alert and oriented x1, in and out of alertness. CVS: S1, S2. Regular rate and rhythm. ABDOMEN: Nontender, nondistended. EXTREMITIES: No clubbing, no cyanosis, no edema. MEDICATIONS: Including hydrocodone every 6 hours as needed for pain. She is on Lovenox 1 mg/kg q.12h. Patient is also on Rocephin 1 g q.a.m. Patient is also on Bumex and metoprolol too. LABORATORY VALUES: From August 09, hemoglobin of 12.1, hematocrit of 36.1. Chemistry: Sodium of 139, chloride of 111, BUN is 18, creatinine of 1.00. ASSESSMENT: 1. Acute mental status changes. 2. Encephalopathy. 3. Secondary urosepsis. 4. Debility. 5. Hypertension. 6. Acute kidney injury on chronic kidney disease. 7. New-onset atrial fibrillation. PLAN: To continue with medications as is. Patient needs a SNF evaluation and needs to be transferred. The patient also has history of urinary tract infection, will continue her on the Rocephin at this time. Needs extensive physical therapy. Will continue monitoring her. Probably, will need to switch her to an oral anticoagulant, preferably Eliquis 2.5 mg twice a day. Will repeat her labs tomorrow. Further recommendations on clinical course. For malnutrition, will continue with nutritional support. Job#: [id number]
[2018-08-11] MEDS: PANTOPRAZOLE SOD 40 MG TABEC PO SCH (08:12)
[2018-08-11] MEDS: VYZULTA OP SCH (09:00)
[2018-08-11] MEDS: LOSARTAN POTASSIUM 25 MG TAB PO SCH (09:23)
[2018-08-11] MEDS: BALSAM PERU/CASTOR OIL 60 GM OINT...G. TP SCH ×2 (09:23→17:58)
[2018-08-11] MEDS: ENOXAPARIN INJ 80 MG/0.8 ML SYR SC SCH ×2 (09:23→20:37)
[2018-08-11] MEDS: NYSTATIN 15 GM POWDER UD BTL TOP SCH ×2 (09:23→17:58)
[2018-08-11] MEDS: DORZOLAMIDE/TIMOLOL/PF 1 EACH DROPERETTE OP SCH ×2 (09:23→17:59)
[2018-08-11] MEDS: DORZOLAMIDE HCL (OPTH) 10 ML BOTTLE OP SCH ×2 (09:23→17:59)
[2018-08-11] MEDS: OXYBUTYNIN CHLORIDE 5 MG TAB PO SCH (09:23)
[2018-08-11] MEDS: CEFTRIAXONE SOD 1 GM VIAL IV SCH (09:23)
[2018-08-11] MEDS: BUMETANIDE 1 MG TAB PO SCH (09:23)
[2018-08-11] MEDS: BRINZOLAMIDE 1% OPTH SUSP 10 ML BTL OP SCH (09:23)
[2018-08-11] MEDS: POTASSIUM CHLORIDE 20 MEQ TAB CR PO SCH (09:24)
--- NOTE | 2018-08-11 11:17 | NUR ---
PATIENT ASSISTED WITH DIAPER CHANGE, CREAM APPLIED ORDERED. REPOSITIONED IN BED. CALL LIGHT AT REACH.
[2018-08-11] MEDS ORDERED: ACETAMINOPHEN 325 MG TAB PO PRN (12:15)
--- NOTE | 2018-08-11 15:03 | NUR ---
SPOKE WITH NINA AT [facility] FAXED PASRR TO [facility] AND CHECKED AT [facility]UR[facility]ES STATION RTF IS STILL AT NURSES STATION READY TO BE USED FOR DISCHARGE.
[2018-08-11] MEDS ORDERED: ACETAMINOPHEN 650 MG SUPP PR PRN (15:15)
--- NOTE | 2018-08-11 17:35 | NUR ---
PATIENT NOTED WITH TEMPERATURE OF 99.9. PRN TYLENOL SUPP GIVEN. TEMP RECHECKED WITH THE READING OF 97.9. WILL CONTINUE TO MONITOR.
[2018-08-11] MEDS: DEXTROSE 5%/0.45% SOD CHL 1,000 ML IV SCH (19:07)
[2018-08-11] MEDS: BIMATOPROST(OPTH) 2.5 ML BOTTLE OP SCH (20:37)
[2018-08-12] VITALS (7 sets, daily range): BP systolic 110–149; BP diastolic 53–70
[2018-08-12 05:28] LABS: BASOPHILS # (AUTO) 0.1 (0.0-0.1); BASOPHILS % 0.8 % (0.0-1.0); EOSINOPHILS # (AUTO) 0.1 (0.0-0.4); EOSINOPHILS % 0.6 % (0.0-6.0); HEMATOCRIT 35.4 % (34.2-44.1); HEMOGLOBIN 12.1 g/dL (12.0-16.0); LYMPHOCYTES # (AUTO) 1.7 (1.0-3.2); LYMPHOCYTES % 17.8 % (18.0-39.1); MEAN CORPUSCULAR HEMOGLOBIN 29.7 pg (28-32); MEAN CORPUSCULAR HGB CONC 34.2 g/dL (31-35); MONOCYTES # (AUTO) 1.3 (0.2-0.8); MONOCYTES % 13.2 % (4.4-11.3); NEUTROPHILS # (AUTO) 6.5 (2.1-6.9); NEUTROPHILS % 66.7 % (38.7-80.0); PLATELET COUNT 403 x10e3/uL (140-360); RED BLOOD COUNT 4.07 x10e6/uL (3.6-5.1); RED CELL DISTRIBUTION WIDTH 14.1 % (11.7-14.4)
[2018-08-12 06:26] LABS: ALBUMIN/GLOBULIN RATIO 0.6 (0.8-2.0); ANION GAP 12.8 mmol/L (8-16); CALCIUM 7.7 mg/dL (8.4-10.2); CREATININE, SERUM 0.93 mg/dL (0.57-1.11)
[2018-08-12 06:27] LABS: POTASSIUM 2.8 mmol/L (3.5-5.1)
--- NOTE | 2018-08-12 06:32 | NUR ---
PAGE DR REYNOSO TO NOTIFY HIM OF POTASSIUM 2.8. AWAITING CALL BACK.
--- NOTE | 2018-08-12 06:33 | NUR ---
PT IS RESTING IN BED. NO ACUTE EVENT OCCURRED THROUGHOUT THE NIGHT. WILL CONTINUE TO MONITOR.
--- NOTE | 2018-08-12 06:51 | NUR ---
PER DR REYNOSO POTASSIUM 40MEQ IV ON TIME DOSE AND BMP. WILL CONTINUE TO MONITOR.
[2018-08-12] MEDS: PANTOPRAZOLE SOD 40 MG TABEC PO SCH (07:30)
--- NOTE | 2018-08-12 07:35 | Progress Note ---
DATE: August 12, 2018 SUBJECTIVE: Patient is sleepy, arousable, oriented times 1. The patient is not eating well according to the nursing staff and not cooperating with physical therapy as needed. PHYSICAL EXAMINATION VITAL SIGNS: Temperature is 97, pulse 92, respirations 18, blood pressure 125/60. Pulse ox is 99%. HEENT: Normocephalic and atraumatic. The patient is legally blind. LUNGS: Clear to auscultation bilaterally. HEART: Heart rate is regular rate and rhythm. ABDOMEN: Nontender, nondistended. EXTREMITIES: No clubbing, no cyanosis, no edema. BACK: No excoriations and no skin break at this time. The patient also has tenderness in the lumbar spine. LABORATORY VALUES: Today's white count is 9.75, hemoglobin 12.1, hematocrit 35.4. Sodium is 135, potassium 2.8, BUN 13, creatinine 0.99. MEDICATIONS: The patient is on Lovenox q.12 h. for AFib. The patient is also on Bumex daily and Rocephin 1 gram q.24 h. ASSESSMENT 1. Urosepsis with urinary tract infection. 2. Encephalopathy secondary to infection. 3. Acute mental status changes. 4. Atrial fibrillation with rapid ventricular response, back to sinus rhythm. 5. Hypertension. PLAN: The patient will be continued on Rocephin for the urosepsis and encephalopathy. The patient continues to get better. For AFib, the patient is on metoprolol 25 mg twice a day and also on Lovenox. Will continue with slow hydration IV fluids. Check labs tomorrow and also replace potassium for hypokalemia. Job#: [id number]
[2018-08-12] MEDS ORDERED: POTASSIUM CHLORIDE 20MEQ/100ML 200 ML IV ONE (08:00)
--- NOTE | 2018-08-12 08:47 | NUR ---
Patient alert and responsive, repositioned this morning and offered breakfast with meds and refused everything by mouth. Attending aware and IV potassium running at this time, call light within reach, bed alarms in place, will monitor
[2018-08-12] MEDS: DORZOLAMIDE HCL (OPTH) 10 ML BOTTLE OP SCH ×2 (08:49→17:04)
[2018-08-12] MEDS: DORZOLAMIDE/TIMOLOL/PF 1 EACH DROPERETTE OP SCH ×2 (08:49→17:04)
[2018-08-12] MEDS: BRINZOLAMIDE 1% OPTH SUSP 10 ML BTL OP SCH (08:49)
[2018-08-12] MEDS: BUMETANIDE 1 MG TAB PO SCH (08:49)
[2018-08-12] MEDS: CEFTRIAXONE SOD 1 GM/NS 50 ML 50 ML IV SCH (08:49)
[2018-08-12] MEDS: OXYBUTYNIN CHLORIDE 5 MG TAB PO SCH (08:50)
[2018-08-12] MEDS: LOSARTAN POTASSIUM 25 MG TAB PO SCH (08:50)
[2018-08-12] MEDS: ENOXAPARIN INJ 80 MG/0.8 ML SYR SC SCH ×2 (09:00→20:37)
[2018-08-12] MEDS: VYZULTA OP SCH (09:00)
[2018-08-12] MEDS: POTASSIUM CHLORIDE 20 MEQ TAB CR PO SCH (09:00)
[2018-08-12] MEDS: NYSTATIN 15 GM POWDER UD BTL TOP SCH ×2 (10:53→17:05)
[2018-08-12] MEDS: BALSAM PERU/CASTOR OIL 60 GM OINT...G. TP SCH ×2 (10:54→17:04)
--- NOTE | 2018-08-12 11:26 | NUR ---
New IV placed LAC 20G by nurse nutrition manager
--- NOTE | 2018-08-12 12:06 | NUR ---
Patient alert and responsive, call to Dr. Rothman's office for speech eval and waiting for call back
--- NOTE | 2018-08-12 12:10 | NUR ---
Patient picked up for CTA
--- NOTE | 2018-08-12 12:21 | NUR ---
Call to Dr. Rothman and orders for Barium swallow and speech eval and to talk with family regarding PEG tube placement.
--- NOTE | 2018-08-12 14:22 | Diagnostic Imaging Report ---
CTA NECK HISTORY: Carotid disease, CVA COMPARISON: Head CT 08/01/2018 TECHNIQUE: CTA of the neck was performed with intravenous iodine based contrast. Coronal, sagittal, and 3-D reformations were created. One or more of the following dose reduction techniques were used: Automated exposure control, adjustment of the mA and/or kV according to patient size, and/or utilization of iterative reconstruction technique. DISCUSSION: If present, any cervical carotid stenosis will be measured as a percentage relative to the [place] artery distal to the stenosis. There are mild calcifications in the aortic arch and proximal great vessels Right Carotid: Moderate calcified plaque at the right carotid bulb causes up to 70% focal stenosis in the proximal right internal carotid artery. Left Carotid: Mild calcified plaque at the left carotid bulb causes less than 50% focal stenosis in the proximal left internal carotid artery. Right vertebral artery: Patent, no abnormalities. Left vertebral artery: Mild calcification at the left vertebral artery ostium causes at least mild canal stenosis. Otherwise, patent and without abnormality. The left vertebral artery is dominant. The intracranial arterial vasculature is partially visualized. Mild bilateral carotid siphon calcifications are present. Additional findings: Partially visualized groundglass opacities in the posterior right upper lobe are nonspecific. A few small nodular opacities are seen in the left upper lobe, measuring up to 9 mm size. Partially visualized filling defects in the bilateral pulmonary arteries are compatible with emboli. The left ocular lens is thinned. The left thyroid lobe is absent. The right thyroid lobe is mildly heterogeneous with a few small coarse calcifications. There is a trace left mastoid effusion. Mild to moderate degenerative changes are seen throughout the spine. IMPRESSION: 1. Moderate right carotid bulb calcified plaque causes up to 70% focal stenosis in the proximal right internal carotid artery. 2. Mild left carotid bulb calcified plaque without significant stenosis. 3. Mild focal stenosis at the left vertebral artery ostium. 4. No other cervical CTA abnormalities. 5. Partially visualized emboli in the bilateral pulmonary arteries - this was discussed with Maria Elena Grijalva RN, at 2:17 PM on 08/12/2018. Associated partially visualized ground glass opacities in the posterior right upper lobe and small nodules in the left upper lobe. Further evaluation with PE protocol chest CT is recommended when clinically feasible. Signed by: Dr. Alejandro Eason M.D. on 08/12/2018 2:19 PM
[2018-08-12] MEDS ORDERED: IOPAMIDOL 370 MG/ML 200 ML INFUS..BTL INJ ONE (14:38)
[2018-08-12] MEDS ORDERED: SODIUM CHLORIDE 0.9% 50ML 50 ML ONE (14:38)
[2018-08-12] MEDS ORDERED: IOPAMIDOL 300MG/ML 100 ML INFUS..BTL IV ONE (14:38)
[2018-08-12 14:46] LABS: ANION GAP 14.8 mmol/L (8-16); CALCIUM 8.2 mg/dL (8.4-10.2); CREATININE, SERUM 0.94 mg/dL (0.57-1.11); POTASSIUM 3.8 mmol/L (3.5-5.1)
--- NOTE | 2018-08-12 14:51 | NUR ---
RECEIVED A CALL FROM DR. MAY, RADIOLOGIST, AT 1421 REGARDING THE FINDINGS FROM THE CT OF THE NECK. PATIENT'S RN NOTIFIED OF CALL AND FINDINGS.
--- NOTE | 2018-08-12 14:54 | NUR ---
Patient alert and responsive, speech saw patient today and concerns on swallowing but will complete MBS for definitive in put
--- NOTE | 2018-08-12 14:59 | NUR ---
Called and left message with Yee Irby, next of kin regarding PEG tube placement
--- NOTE | 2018-08-12 15:17 | NUR ---
Call to SYSTEMS PROTECTION TECHNICIAN and orders in place for CT chest protocol and orders in place.
--- NOTE | 2018-08-12 16:07 | NUR ---
Call from radiology and patient had CTA today with constrast and cannot have CT chest with contrast until tomorrow, OPERATER notified
[2018-08-12] MEDS: DEXTROSE 5%/0.45% SOD CHL 1,000 ML IV SCH (16:28)
--- NOTE | 2018-08-12 18:16 | NUR ---
Call to person on contact list as next of kin for discussions about PEG tube and options regarding stenosed left carotid and she stated will not be able to make any decision for the patient and that patient can make her own decisions.
--- NOTE | 2018-08-12 19:55 | NUR ---
RECEIVED PT IN BED AOX2 RESPIRATIONS ARE EVEN AND UNLABORED . HEMATOMA TO THE SIDE OF LEFT LEG, HEEL PROTECTORS IN PLACE. IV FLUID INFUSING AT 50 M/L HR . CALL LIGHT WITH IN AT REACH.
[2018-08-12] MEDS: BIMATOPROST(OPTH) 2.5 ML BOTTLE OP SCH (20:37)
[2018-08-13] VITALS (8 sets, daily range): BP systolic 121–149; BP diastolic 56–67
--- NOTE | 2018-08-13 05:43 | NUR ---
PT RESTING AND DENIES PAIN CALL LIGHT WITH IN REACH
[2018-08-13 05:50] LABS: ANION GAP 13.2 mmol/L (8-16); BLOOD UREA NITROGEN 14 mg/dL (7-26); BUN/CREATININE RATIO 17 (6-25); CALCIUM 7.8 mg/dL (8.4-10.2); CARBON DIOXIDE 17 mmol/L (22-29); CHLORIDE 107 mmol/L (98-107); CREATININE, SERUM 0.83 mg/dL (0.57-1.11); EST GLOMERULAR FILTRATION RATE > 60 ML/MIN (60-); GLUCOSE 109 mg/dL (74-118); POTASSIUM 3.2 mmol/L (3.5-5.1); SODIUM 134 mmol/L (136-145)
--- NOTE | 2018-08-13 07:25 | NUR ---
RECIEVED PT FROM OUT GOING NURSE, ALERT AND CONFUSED. IN BED WITH ALARM INPLACE.
[2018-08-13] MEDS: PANTOPRAZOLE SOD 40 MG TABEC PO SCH (07:30)
--- NOTE | 2018-08-13 07:45 | Progress Note ---
DATE: August 13, 2018 SUBJECTIVE: The patient is here for urinary tract infection. The patient is also here for encephalopathy and new onset of atrial fibrillation with rapid ventricular response. The patient is sleepy, arousable. The patient is not eating at all. The patient's family members have been called and they are not committing to whether the patient needs PEG or not, but her nutritional status has decreased. The patient is not participating with physical therapy either. OBJECTIVE VITAL SIGNS: Temperature is 96.0, pulse of 74, respirations of 18, blood pressure is 146/67, pulse oximetry of 97%. HEENT: Normocephalic, atraumatic. The patient is legally blind. CVS: S1, S2, regular rate and rhythm. ABDOMEN: Nontender, nondistended. EXTREMITIES: No clubbing, no cyanosis, no edema. NEUROLOGIC: Alert and oriented x1. Responds to verbal stimuli, but goes right back to sleep. IMAGING STUDIES: There was a neck CTA done which revealed moderate right bulb calcified plaques up to 70% stenosis. Partially visualized emboli in the pulmonary artery, this was discussed yesterday, associated with ground glass opacities and correlation with PE protocol was noted. Mild focal stenosis in the left atrium ostium too. The patient's CT chest will be done today because of the amount of contrast given. Brain CT did show severe microvascular changes. Microbiology has noted Klebsiella pneumoniae sensitive Rocephin. We will continue with that. ASSESSMENT 1. Urosepsis secondary to urinary tract infection. 2. Encephalopathy, secondary to infection. 3. Acute mental status changes. 4. Possible cerebrovascular accident and microvascular changes. 5. The patient also has history of atrial fibrillation which is corrected back to normal sinus rhythm. 6. Hypertension. PLAN 1. The patient is on Lovenox q.12 h. for atrial fibrillation. 2. The patient has a questionable pulmonary artery embolism. We will keep her on Lovenox q.12 h. 3. Nutritional status is very poor. The patient will need a modified barium swallow. We will see if she is aspirating and will need PEG tube. Given the overall situation, the patient's prognosis is very grim. Again, we will try to consult with the family on regard to PEG tube placement and/or continuing with Lovenox secondary to pulmonary embolism and also history of atrial fibrillation or anticoagulation. At this time, we will continue with current therapy and we will discuss the code status with the family. Job#: [id number] SATINDER
[2018-08-13] MEDS: DORZOLAMIDE HCL (OPTH) 10 ML BOTTLE OP SCH ×2 (08:20→18:25)
[2018-08-13] MEDS: ENOXAPARIN INJ 80 MG/0.8 ML SYR SC SCH ×2 (08:20→20:11)
[2018-08-13] MEDS: BRINZOLAMIDE 1% OPTH SUSP 10 ML BTL OP SCH (08:20)
[2018-08-13] MEDS: DORZOLAMIDE/TIMOLOL/PF 1 EACH DROPERETTE OP SCH ×2 (08:20→18:25)
[2018-08-13] MEDS: LOSARTAN POTASSIUM 25 MG TAB PO SCH (09:00)
[2018-08-13] MEDS: OXYBUTYNIN CHLORIDE 5 MG TAB PO SCH (09:00)
[2018-08-13] MEDS: VYZULTA OP SCH (09:00)
[2018-08-13] MEDS: POTASSIUM CHLORIDE 20 MEQ TAB CR PO SCH (09:00)
[2018-08-13] MEDS: BUMETANIDE 1 MG TAB PO SCH (09:00)
[2018-08-13] MEDS ORDERED: SODIUM CHLORIDE 0.9% 1000ML 1,000 ML IV SCH (09:15)
[2018-08-13] MEDS: CEFTRIAXONE SOD 1 GM/NS 50 ML 50 ML IV SCH (09:50)
[2018-08-13] MEDS: NYSTATIN 15 GM POWDER UD BTL TOP SCH ×2 (14:20→18:30)
[2018-08-13] MEDS: BALSAM PERU/CASTOR OIL 60 GM OINT...G. TP SCH ×2 (14:20→18:30)
--- NOTE | 2018-08-13 14:45 | NUR ---
INTERVENTIONAL RADIOLOGY CONSULTATION DATE OF CONSULTATION: August 13, 2018 REASON FOR CONSULTATION: Pulmonary embolism HPI: Patient is an 83 year old female who initially presented with altered mental status, found to have a UTI, urosepsis, and new onset Afib with RVR, now back to normal sinus rhythm, presenting with newly diagnosed PE. Patient has had confusion and multiple falls over the past several weeks. During the hospitalization, she has had intermittent shortness of breath. CT PE today demonstrated bilateral main and lobar pulmonary emboli, right greater than right, developing infarction in the right upper lobe, without CT evidence of right heart strain. She continues to be hemodynamically stable on the floor. Denies chest pain or dizziness, abdominal pain, N/V. Of note, the patient has poor performance status. PAST MEDICAL HISTORY: HRN, incontinence, GERD, history of hypokalemia, glaucoma, legally blind, ?history of CVA PAST SURGICAL HISTORY: Second right hammertoe surgery FAMILY HISTORY: Denies family history of blood clots/pulmonary embolism SOCIAL HISTORY: No smoking, drinking or illicit drug use. Previously lived at a fdc per the patient. Has children in the [place] area. MEDICATIONS: Please refer to [facility] record. ALLERGIES: NKDA PHYSICAL EXAM: Temperature: 98.2F, BP: 121/59, RR: 22, HR: 94 GENERAL: Pleasant, somewhat confused, frail HEENT: MMM LUNGS: CTAB CARDIAC: mild tachycardia, no m/g/r, S1 and S2 present ABDOMEN: Soft, NT/ND, no rebound or guarding EXREMITIES: Minimal pitting edema LABS: Reviewed. Hemoglobin: 12.1, WBC: 9.75, PLT 403 from 08/12/18. K 3.2 and Cr 0.83 from 08/13/18. CT PE 08/13/18: per my review large right greater than left distal main/lobar pulmonary emboli, right upper lobe pulmonary infarction, no CT evidence of right heart strain CT Head 08/01/18: severe microvascular ischemic changes without evidence of acute infarction ASSESSMENT/PLAN: 83 year old frail appearing female presenting with urosepsis, altered mental status, and afib with RVR. Currently clinically stable but CT demonstrating bilateral distal main pulmonary emboli. No CT evidence of right heart strain. Kike hopperkary has poor performance status. She is currently hemodynamically stable and has not been hypotensive. Has been on Loenox q12 for atrial fibrillation. -Would recommend continuing therapeutic systemic anticoagulation. -Given absence of massive pulmonary embolism (lack of hypotension, profound bradycardia, etc), the patient does not meet criteria for catheter directed thro mbolysis. Furthermore, there is no documented right heart strain to suggest submassive PE. Repeat cardiac echo may be considered. -Findings discussed with Dr. Reyna. Thank you for the opportunity to participate in the care of this patient. Please don't hesitate to contact me with any questions. Bertha Yanez MD IR Staff
--- NOTE | 2018-08-13 14:55 | Diagnostic Imaging Report ---
CT CHEST WITH CONTRAST HISTORY: CVA, falls, shortness of breath, chest pain COMPARISON: None TECHNIQUE: CT scan of the chest WITH intravenous contrast, using PE protocol. The chest was scanned utilizing a multidetector helical scanner from the lung apex through the level of the adrenal glands. Thin section reconstructions were obtained with special concentration on the pulmonary arteries. IV CONTRAST: 100 cc of Isovue-370. PROTOCOL: PE RADIATION DOSE: Total DLP: 508.27 mGy*cm Dose modulation, iterative reconstruction, and/or weight based adjustment of the mA/kV was utilized to reduce the radiation dose to as low as reasonably achievable. COMPLICATIONS: None DISCUSSION: Lungs: Right: * Posterior peripheral wedge-shaped confluent and groundglass opacity involving the right upper lobe (series 3 image 31 and coronal image 70). * A 5 mm x 3 mm anterior right middle lobe nodule (series 3 image 85). * Mild areas of atelectasis versus scarring. Left: * A bilobed 16 x 8 mm nodule within the superior aspect of the right upper lobe (series 3 image 27). * A 4 mm left upper lobe nodule (series 3 image 65). * Mild lingular atelectasis versus scarring. Vessels: Large bilateral pulmonary emboli, right greater than left, specifically the right upper lobe artery is occluded or nearly completely occluded. The main pulmonary artery measures 2.9 cm in diameter. The right pulmonary artery measures 2.7 cm in diameter. The left pulmonary artery measures 2.6 cm in diameter. Scattered atherosclerotic vascular noncalcified and calcified plaques, including the coronary arteries. Airways: Diffuse bronchial wall thickening. Pleura: Small to moderate right low density pleural effusion. Heart and mediastinum: Aortic and pulmonary valve calcifications. Abdomen: Limited images of the upper abdomen. A large hiatal hernia containing the stomach. The gallbladder is partially visualized, but appears distended. Diffuse pancreatic parenchymal atrophy. Lymph nodes: No pathologically enlarged lymph node identified. Bones: Diffusely decreased mineralization of the osseous structures limits bone detail. Left convex curvature of the thoracic spine. Severe kyphosis. Soft tissues: Diffuse muscle atrophy. IMPRESSION: 1. Large right greater than left pulmonary emboli, results in near complete to complete occlusion of the right upper lobe artery and associated right upper lobe pulmonary infarction. 2. Multiple indeterminate pulmonary nodules, recommend follow-up CT of the chest in 3 months to assess for stability or resolution. 3. Coronary artery disease. 4. Large hiatal hernia. 5. Diffuse osseous demineralization. Discussed with Dr. Zee via phone on August 13, 2018 at 1430. Signed by: Dr. Humberto Muñoz D.O., M.M.M. on 08/13/2018 2:51 PM
[2018-08-13] MEDS ORDERED: SODIUM CHLORIDE 0.9% 50ML 50 ML ONE (15:35)
[2018-08-13] MEDS ORDERED: IOPAMIDOL 370 MG/ML 200 ML INFUS..BTL INJ ONE (15:35)
--- NOTE | 2018-08-13 17:32 | NUR ---
MBS TODAY CT CHEST TODAY CT CAROTIDS SHOW POSSIBLE BLOCKAGE NURSE TRYING TO REACH FAMILY TO DISCUSS PEG
[2018-08-13] MEDS: DEXTROSE 5%/0.45% SOD CHL 1,000 ML IV SCH (18:30)
--- NOTE | 2018-08-13 18:40 | NUR ---
PT IN BED WITH BED ALARM INPLACE . CONFUSED ALL SHIFT AND REFUSED ALL MEDS. AWARE. MBS DONE AND PT PASSED BUT REFUSING TO EAT. POOR PO INTAKE BOTH MEALS AND FLUIDS. PT PULLED OUT THREE DIFFERENT IV LINES. CT SCAN DONE A/O.
--- NOTE | 2018-08-13 19:30 | NUR ---
RECEIVED PT IN BED CONFUSED .NO ACUTE DIS TRESS NOTED. NO IV. IR CONSULTATION FOR PULMONARY EMBOLISM .HEMATOMA AT THE LEFT LOWER LEG .CALL LIGHT WITH IN REACH.
[2018-08-13] MEDS: BIMATOPROST(OPTH) 2.5 ML BOTTLE OP SCH (20:00)
[2018-08-14] VITALS (8 sets, daily range): BP systolic 102–148; BP diastolic 51–74
[2018-08-14] MEDS: DEXTROSE 5%/0.45% SOD CHL 1,000 ML IV SCH ×2 (04:40→04:50)
[2018-08-14 05:43] LABS: BASOPHILS # (AUTO) 0.1 (0.0-0.1); BASOPHILS % 0.7 % (0.0-1.0); EOSINOPHILS % 0.4 % (0.0-6.0); HEMATOCRIT 33.2 % (34.2-44.1); LYMPHOCYTES # (AUTO) 1.3 (1.0-3.2); LYMPHOCYTES % 15.1 % (18.0-39.1); MEAN CORPUSCULAR HEMOGLOBIN 29.2 pg (28-32); MEAN CORPUSCULAR HGB CONC 33.1 g/dL (31-35); MEAN CORPUSCULAR VOLUME 88.1 fL (81-99); MONOCYTES # (AUTO) 1.1 (0.2-0.8); MONOCYTES % 12.8 % (4.4-11.3); NEUTROPHILS % 70.4 % (38.7-80.0); PLATELET COUNT 461 x10e3/uL (140-360); RED BLOOD COUNT 3.77 x10e6/uL (3.6-5.1); RED CELL DISTRIBUTION WIDTH 14.8 % (11.7-14.4)
[2018-08-14 06:04] LABS: BLOOD UREA NITROGEN 11 mg/dL (7-26); BUN/CREATININE RATIO 14 (6-25); CALCIUM 7.9 mg/dL (8.4-10.2); CARBON DIOXIDE 18 mmol/L (22-29); CHLORIDE 109 mmol/L (98-107); CREATININE, SERUM 0.78 mg/dL (0.57-1.11); EST GLOMERULAR FILTRATION RATE > 60 ML/MIN (60-); GLUCOSE 108 mg/dL (74-118); SODIUM 136 mmol/L (136-145)
--- NOTE | 2018-08-14 06:09 | NUR ---
PT RESTING .DENIES PAIN .NO ACUTE DISTRESS NOTED NEW IV LINE AT LEFT HAND .CALL LIGHT WITH IN REACH.
[2018-08-14] MEDS ORDERED: POTASSIUM CHLORIDE 20MEQ/100ML 100 ML IV ONE ×2 (07:15→10:45)
[2018-08-14] MEDS: PANTOPRAZOLE SOD 40 MG TABEC PO SCH (07:30)
--- NOTE | 2018-08-14 08:10 | Progress Note ---
DATE: August 14, 2018 SUBJECTIVE: Patient is here for urosepsis, acute mental status changes, and encephalopathy secondary to cellulitis, and also debility. Currently, the patient is not being able to eat. Patient does not have any family members that can make any decisions at this time. We informed the family to assess for power of staff attorney and that she needs one, and she continues to deteriorate and is unable to eat at this time. PHYSICAL EXAMINATION: GENERAL: Alert and oriented x1, slips in and out of sleep. Patient is cachectic and in a position. VITAL SIGNS: Temperature is 98.1, pulse of 102, respiration of 20, blood pressure is 148/74, pulse oximetry 96%. HEENT: Normocephalic, atraumatic. CVS: S1, S2 regular. ABDOMEN: Nontender, nondistended. EXTREMITIES: No clubbing, no cyanosis, no edema. LABORATORY VALUES: Today's white count is 8.53, hemoglobin of 11 and hematocrit of 33, platelet count is 461,000 and no left shift present. Patient's chemistry showed 136 of sodium, potassium of 3.0, carbon dioxide 18, and calcium of 7.9. MICROBIOLOGY: Growth with Klebsiella pneumoniae which is covered with Rocephin. Patient's CT chest shows posterior peripheral wedge-shaped confluent ground-glass opacities in the right upper lobe, right anterior middle lobe nodule, 16 x 8 mm nodule in right upper lobe, and lingular atelectasis versus scarring. Patient has large right greater than left pulmonary emboli resulting in complete occlusion of the right upper lobe. Patient has multiple intermediate pulmonary nodules, coronary artery disease, and large hiatal hernia. Patient's recent neck CTA showed 70% stenosis of the proximal right internal carotid artery. ASSESSMENT: [age]swrzu[age]ch-old female with acute mental status changes, urosepsis, is on antibiotic. Patient with carotid artery stenosis, pulmonary embolism, currently on Lovenox at this time. Patient is on metoprolol tartrate for rate control, pantoprazole for gastrointestinal prophylaxis. PLAN: To replace potassium. Will need to talk to the family. Needs intervention for carotid stenosis. Will need to have a stent in there. Patient needs continuous anticoagulation, which will continue. dental services director for consult with family to reassess the living will situation and power of staff attorney situation. Will continue contacting them. For now, interventional radiology will be consulted for possible stent. Also a consult with Dr. Pena is on board. Will continue to monitor the patient along with cardiology and also consult pulmonology. Job#: [id number]
[2018-08-14] MEDS: VYZULTA OP SCH (09:00)
[2018-08-14] MEDS ORDERED: CLOPIDOGREL BISULFATE 75 MG TAB PO SCH (09:00)
[2018-08-14] MEDS ORDERED: ASPIRIN 81 MG CHEW TAB PO SCH (09:00)
[2018-08-14] MEDS: DORZOLAMIDE/TIMOLOL/PF 1 EACH DROPERETTE OP SCH ×2 (09:55→17:14)
[2018-08-14] MEDS: CEFTRIAXONE SOD 1 GM/NS 50 ML 50 ML IV SCH (09:55)
[2018-08-14] MEDS: DRONABINOL 2.5MG PO SCH ×2 (09:55→17:14)
[2018-08-14] MEDS: BRINZOLAMIDE 1% OPTH SUSP 10 ML BTL OP SCH (09:55)
[2018-08-14] MEDS: LOSARTAN POTASSIUM 25 MG TAB PO SCH (09:56)
[2018-08-14] MEDS: APIXAB 2.5 MG TABLET PO SCH ×2 (09:56→17:14)
[2018-08-14] MEDS: OXYBUTYNIN CHLORIDE 5 MG TAB PO SCH (09:56)
[2018-08-14] MEDS: DORZOLAMIDE HCL (OPTH) 10 ML BOTTLE OP SCH ×2 (09:56→17:18)
[2018-08-14] MEDS: BUMETANIDE 1 MG TAB PO SCH (09:56)
[2018-08-14] MEDS: POTASSIUM CHLORIDE 20 MEQ TAB CR PO SCH (09:57)
[2018-08-14] MEDS: ENOXAPARIN INJ 80 MG/0.8 ML SYR SC SCH ×2 (09:57→20:56)
--- NOTE | 2018-08-14 10:02 | Diagnostic Imaging Report ---
PROCEDURE:X-RAY MODIFIED BARIUM SWALLOW COMPARISON:None. INDICATIONS:Not provided. DISCUSSION:Fluoroscopic examination was performed in conjunction with speech pathology, during swallowing of a variety of thin and thick liquid consistencies. Examination showed premature spillage over the base of the tongue with mixed texture only. No laryngeal penetration or aspiration was noted. Trace vallecular residue was seen with thin liquid. CONCLUSION:No penetration or aspiration. Please see the report from speech pathology for complete details. Adam Lopez M.D. Dictated by: Adam Lopez M.D. on 08/14/2018 at 10:13 Electronically approved by: Adam Lopez M.D. on 08/14/2018 at 10:13
[2018-08-14] MEDS: NYSTATIN 15 GM POWDER UD BTL TOP SCH ×2 (13:36→17:14)
[2018-08-14] MEDS: BALSAM PERU/CASTOR OIL 60 GM OINT...G. TP SCH ×2 (13:36→17:14)
--- NOTE | 2018-08-14 17:34 | NUR ---
PT CONTINUE ON IV HYDRATION AND ANTIBIOTICS. ABLE TO TAKE PO MEDICATIONS AND PO FLUIDS ENCOURAGED. POOR MEALS INTAKE SHE REFUSES TO EAT. SOME FAMILY MEMBERS CAME IN TO VISIT BUT ALL DENIED HAVING POA.SAFETY PRECAUTION MAINTAINED.
--- NOTE | 2018-08-14 18:17 | NUR ---
Nutrition Intervention Note RD Recommendation for Physician: - Rec TF with Jevity 1.2 @60mL/hr providing 1728kcal, 80g protein and 1162mL fluids. Free water flushes @30mL q 4hr; additional flushes per MD discretion - Monitor daily labs; check gastric residual and GI tolerance - Continue diet and supplements as ordered - Encourage PO and assist with meals Plan of Care: RD following, monitoring for tolerance and adequacy Nutrition reason for involvement: Follow up Primary Diagnose(s): 1. Acute mental status changes. 2. Debility with frequent falls. PMH: HTN, reflux, glaucoma GI: LBM 08/14 Skin: intact Labs: 08/14 K 3.0 L, Ca 7.9 L 08/04 K 3.3 L, Creatinine 1.52 H, Ca 8.3 L Meds: Marinol, K-dur, dextrose/NaCl Ht: 67in Wt: 141lb 08/14 BMI: 22.1kg/m2 IBW: 135lb RD Assessment: 08/14 Chart reviewed. Pt was discussed during rounds. MBS reports indicated no penetration or aspiration. Pt has been refusing meals and supplements ordered. Marinol was given but pt still refused to eat. Visited pt in the room. Pt remained confused and not answering questions appropriately. Possible PEG tube placement, per RN. Will continue to monitor and follow. 08/09 Consult received. Pt with an altered mental status and confusion who has been refusing to eat or eating very little for about one week. (08/04/18) Chart reviewed. Labs and meds reviewed. 83yo F, who is admitted for frequent falls and AMS. K was repleted. During my visit, pt reports eating about the same. RN recorded ~25% of PO intake since admission. Pt denies any N/V/D/C or abdominal pain at this time. No reported of recent weight loss. LBM 08/04. No complain of chewing or swallowing difficulty. RD rec Ensure Enlive TID to promote PO intake; discussed with RN through phone. Will continue to monitor and follow. Malnutrition Evaluation (08/09) The patient does not meet criteria for a specified degree of malnutrition at this time. Will re-evaluate at follow-up as appropriate. Nutrition Prescription (Diet Order): cardiac diet Estimated Nutritional Needs: 1625 - 1950 kcals at 25-30 kcals/kg/bw 65-97.5g of protein at 1-1.5g/kg/bw Diet Adequacy: Not meeting calorie needs, Not meeting protein needs Diet Education Needs Assessment: Diet education not indicated. Nutrition Care Level: moderate Nutrition Diagnosis: Inadequate oral intake related to current medical status as evidenced by ~0% PO intake recorded by RN. Goal: Patient will meet 75-100% of estimated needs by follow up Progress: Not progressing Interventions: Mineral modified diet, commercial beverage, rate, route, composition, Mineral-modified diet, Commercial beverage Monitoring/Evaluation: Total energy intake, Total protein intake, formula/ solution, Modified diet, Liquid supplement, Weight change Signed: Gretchen Polk, MS, RD, LD
--- NOTE | 2018-08-14 19:12 | NUR ---
Patient visited in room during nursing rounds. Patient alert and oriented x1 (self). 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 Patient able to answer some questions. Bed alarm active. Pt receiving IVF (D51/2NS at 50ml/hr). Will monitor pt closely.
[2018-08-14] MEDS: BIMATOPROST(OPTH) 2.5 ML BOTTLE OP SCH (20:56)
[2018-08-15] VITALS (9 sets, daily range): BP systolic 120–170; BP diastolic 58–92
[2018-08-15 05:35] LABS: BASOPHILS # (AUTO) 0.1 (0.0-0.1); BASOPHILS % 1.2 % (0.0-1.0); EOSINOPHILS # (AUTO) 0.1 (0.0-0.4); EOSINOPHILS % 0.8 % (0.0-6.0); HEMATOCRIT 32.6 % (34.2-44.1); HEMOGLOBIN 10.8 g/dL (12.0-16.0); LYMPHOCYTES # (AUTO) 1.6 (1.0-3.2); LYMPHOCYTES % 21.7 % (18.0-39.1); MEAN CORPUSCULAR HGB CONC 33.1 g/dL (31-35); MEAN CORPUSCULAR VOLUME 87.6 fL (81-99); MONOCYTES # (AUTO) 1.1 (0.2-0.8); MONOCYTES % 14.7 % (4.4-11.3); NEUTROPHILS # (AUTO) 4.5 (2.1-6.9); NEUTROPHILS % 60.9 % (38.7-80.0); PLATELET COUNT 443 x10e3/uL (140-360); RED BLOOD COUNT 3.72 x10e6/uL (3.6-5.1); RED CELL DISTRIBUTION WIDTH 14.8 % (11.7-14.4)
[2018-08-15 05:52] LABS: ANION GAP 11.2 mmol/L (8-16); BLOOD UREA NITROGEN 11 mg/dL (7-26); BUN/CREATININE RATIO 14 (6-25); CALCIUM 7.9 mg/dL (8.4-10.2); CARBON DIOXIDE 18 mmol/L (22-29); CHLORIDE 107 mmol/L (98-107); CREATININE, SERUM 0.81 mg/dL (0.57-1.11); EST GLOMERULAR FILTRATION RATE > 60 ML/MIN (60-); GLUCOSE 112 mg/dL (74-118); POTASSIUM 3.2 mmol/L (3.5-5.1); SODIUM 133 mmol/L (136-145)
[2018-08-15] MEDS ORDERED: POTASSIUM CHLORIDE 20MEQ/100ML 100 ML IV ONE (07:00)
--- NOTE | 2018-08-15 07:19 | Progress Note ---
DATE: August 15, 2018 Patient is here for acute mental status changes, recent diagnosis of pulmonary embolism and also carotid artery stenosis. Patient is currently alert and oriented times 3 today. More alert. Patient is talkative and did eat some last night. PHYSICAL EXAMINATION VITAL SIGNS: Temperature is 98.1, pulse of 90, respirations of 18, blood pressure is 134/64, pulse ox is 91% on 2 L of nasal cannula. HEENT: Normocephalic and atraumatic. Pupils are reactive. The patient is legally blind. CV: S1 and S2 irregular. ABDOMEN: Nontender and nondistended. EXTREMITIES: No clubbing. No cyanosis. No edema. MUSCULOSKELETAL: Shows arthritic changes. LABORATORY VALUES: Today's white count was 7.42, hemoglobin of 10.8 and hematocrit of 32.6. Chemistry show a sodium of 133, potassium is 3.2, BUN of 11, creatinine of 0.81. Calcium is running low at 7.9. MICROBIOLOGY: Klebsiella on urine culture. CT of the chest showed pulmonary embolism. Neck CTA showed carotid artery stenosis. ASSESSMENT 1. Urosepsis: Will continue monitoring the patient. Will continue giving her intravenous antibiotics. 2. Pulmonary embolism: Patient is anticoagulated with Lovenox and Eliquis. Will stop the Lovenox today. 3. Cachexia: Patient is on Marinol. Will continue with that. Encourage p.o. feeds. The patient has passed her barium swallow. Will continue monitoring her moderate protein calorie malnutrition. 4. 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 5. Patient with hypertension: Will continue monitoring. MEDICATIONS: The patient is on: 1. Lovenox 64 mg q.12 h. This was stopped. 2. The patient is on , Trusopt and Lumigan for her glaucoma. 3. Apixaban 2.5 mg twice a day. 4. Nystatin 1 g twice a day. 5. Potassium chloride 20 mEq daily. 6. Losartan 25 mg daily. 7. Oxybutynin 5 mg. 8. Bumex 1 mg daily. 9. Rocephin as mentioned above. 10. The patient is also on metoprolol 2.5 mg as needed for atrial fibrillation and 40 mg of Protonix for GI prophylaxis. DISPOSITION: The patient's family does not have a POA. Therefore, I discussed at length with the patient. The patient is indecisive at this point in time whether to go to SNF or not. Again, will try to contact family members and reach out to them to see what would be the best for the patient. If the patient continues to deteriorate, will need more medical management. Will confer with 2 physicians and make decisions. Further recommendations per clinical course. Will continue monitoring the patient. Job#: [id number] ELLIE
--- NOTE | 2018-08-15 07:25 | NUR ---
PATIENT IN BED WITH HEAD OF BED ELEVATED GETTING SOME BLOOD DRAWN FOR LABS. IV FLUID INFUSING ORDERED. HEEL PROTECTORS IN PLACE. CALL LIGHT AT REACH.
[2018-08-15] MEDS: DRONABINOL 2.5MG PO SCH ×2 (08:04→16:30)
[2018-08-15] MEDS: PANTOPRAZOLE SOD 40 MG TABEC PO SCH (08:04)
[2018-08-15] MEDS ORDERED: APIXAB 2.5 MG TABLET PO SCH (09:00)
[2018-08-15] MEDS: VYZULTA OP SCH (09:00)
[2018-08-15] MEDS: DORZOLAMIDE HCL (OPTH) 10 ML BOTTLE OP SCH ×2 (10:16→17:32)
[2018-08-15] MEDS: CEFTRIAXONE SOD 1 GM/NS 50 ML 50 ML IV SCH (10:16)
[2018-08-15] MEDS: DORZOLAMIDE/TIMOLOL/PF 1 EACH DROPERETTE OP SCH ×2 (10:16→17:32)
[2018-08-15] MEDS: BRINZOLAMIDE 1% OPTH SUSP 10 ML BTL OP SCH (10:16)
[2018-08-15] MEDS: BUMETANIDE 1 MG TAB PO SCH (10:16)
[2018-08-15] MEDS: LOSARTAN POTASSIUM 25 MG TAB PO SCH (10:17)
[2018-08-15] MEDS: NYSTATIN 15 GM POWDER UD BTL TOP SCH ×2 (10:17→17:32)
[2018-08-15] MEDS: POTASSIUM CHLORIDE 20 MEQ TAB CR PO SCH (10:17)
[2018-08-15] MEDS: BALSAM PERU/CASTOR OIL 60 GM OINT...G. TP SCH ×2 (10:17→17:32)
[2018-08-15] MEDS: OXYBUTYNIN CHLORIDE 5 MG TAB PO SCH (10:17)
[2018-08-15] MEDS: APIXABAN 5 MG TABLET PO SCH ×2 (10:17→17:00)
--- NOTE | 2018-08-15 11:47 | NUR ---
PATIENT ASSISTED WITH DIAPER CHANGE, HAD A LARGE BM. IV POTASSIUM INFUSING ORDERED. BED IN LOWER POSITION, CALL LIGHT AT REACH.
[2018-08-15] MEDS ORDERED: HYDRALAZINE HCL 20 MG/ML VIAL IV PRN (12:30)
--- NOTE | 2018-08-15 14:34 | NUR ---
PATIENT NOTED WITH B/P OF 170/92, NOTIFIED, NEW ORDER RECEIVED AND IMPLEMENTED. B/P RECHECKED WITH THE READING OF 139/66. WILL CONTINUE TO MONITOR.
--- NOTE | 2018-08-15 16:22 | NUR ---
PATIENT AMBULATED FEW STEPS IN ROOM WITH PHYSICAL THERAPY. BACK TO BED, HR AT 103 ANT B/P AT 129/65. CALL LIGHT AT REACH.
[2018-08-15] MEDS: BIMATOPROST(OPTH) 2.5 ML BOTTLE OP SCH (21:38)
[2018-08-16] VITALS (7 sets, daily range): BP systolic 118–165; BP diastolic 57–86
[2018-08-16] MEDS: DEXTROSE 5%/0.45% SOD CHL 1,000 ML IV SCH ×2 (01:59→16:12)
--- NOTE | 2018-08-16 06:19 | NUR ---
PT IS RESTING IN BED. NO ACUTE EVENT OCCURRED THROUGHOUT THE NIGHT. WILL CONTINUE TO MONITOR.
[2018-08-16 06:34] LABS: ANION GAP 12.4 mmol/L (8-16); BLOOD UREA NITROGEN 10 mg/dL (7-26); BUN/CREATININE RATIO 13 (6-25); CALCIUM 8.1 mg/dL (8.4-10.2); CARBON DIOXIDE 17 mmol/L (22-29); CHLORIDE 111 mmol/L (98-107); CREATININE, SERUM 0.77 mg/dL (0.57-1.11); EST GLOMERULAR FILTRATION RATE > 60 ML/MIN (60-); GLUCOSE 103 mg/dL (74-118); POTASSIUM 3.4 mmol/L (3.5-5.1); SODIUM 137 mmol/L (136-145)
--- NOTE | 2018-08-16 07:00 | NUR ---
SHIFT REPORT RECEIVED FROM NIGHT RN. PT DENIES NEEDS AT THIS TIME.
[2018-08-16] MEDS: PANTOPRAZOLE SOD 40 MG TABEC PO SCH (08:23)
[2018-08-16] MEDS: BRINZOLAMIDE 1% OPTH SUSP 10 ML BTL OP SCH (08:23)
[2018-08-16] MEDS: DRONABINOL 2.5MG PO SCH ×2 (08:23→16:29)
[2018-08-16] MEDS: CEFTRIAXONE SOD 1 GM/NS 50 ML 50 ML IV SCH (08:23)
[2018-08-16] MEDS: DORZOLAMIDE/TIMOLOL/PF 1 EACH DROPERETTE OP SCH ×2 (08:24→16:29)
[2018-08-16] MEDS: LOSARTAN POTASSIUM 25 MG TAB PO SCH (08:25)
[2018-08-16] MEDS: BUMETANIDE 1 MG TAB PO SCH (08:25)
[2018-08-16] MEDS: DORZOLAMIDE HCL (OPTH) 10 ML BOTTLE OP SCH ×2 (08:25→16:29)
[2018-08-16] MEDS: APIXABAN 5 MG TABLET PO SCH ×2 (08:26→16:31)
[2018-08-16] MEDS: POTASSIUM CHLORIDE 20 MEQ TAB CR PO SCH (08:26)
[2018-08-16] MEDS: BALSAM PERU/CASTOR OIL 60 GM OINT...G. TP SCH ×2 (08:26→16:29)
[2018-08-16] MEDS: OXYBUTYNIN CHLORIDE 5 MG TAB PO SCH (08:26)
[2018-08-16] MEDS ORDERED: POTASSIUM CHLORIDE 20MEQ/100ML 100 ML IV ONE (08:30)
[2018-08-16] MEDS: VYZULTA OP SCH (08:49)
--- NOTE | 2018-08-16 11:01 | Progress Note ---
DATE: August 16, 2018 SUBJECTIVE: Patient is here for acute mental status changes, recent history of pulmonary embolism, and history of carotid artery stenosis. Patient does not have any family member and no agreements with treatment at this time. Patient is alert and oriented x1, legally blind, is able to talk, not eating well. Patient is on IV fluids at 50 mL an hour of D5half NS. OBJECTIVE VITAL SIGNS: Temperature is 97.5, pulse of 99, respirations of 20, blood pressure is 139/63, pulse oximetry of 98%. HEENT: Normocephalic, atraumatic. CVS: S1, S2 irregular. ABDOMEN: Nontender, nondistended. EXTREMITIES: No clubbing, no cyanosis, no edema. The patient is looking cachectic. LABORATORY VALUES: Yesterday's white count was 7.4, hemoglobin of 10.8, and hematocrit 32.6. Chemistries; potassium 3.4, carbon dioxide is 17. ASSESSMENT 1. Urosepsis. We will continue the patient on antibiotics. 2. Pulmonary embolism. Patient has been anticoagulated. He is on Eliquis. Lovenox has been stopped. 3. Cachexia, on Marinol. We will continue with that. 4. Acute mental status changes probably secondary to dementia. We will continue monitoring the patient for dementia and also discuss with the family. 5. Patient also has hypertension. We will continue monitoring and giving the medication. PLAN: The plan would be to order a SNF eval and possible discharge to SNF on Saturday. Family has recognized the problem, but there is no POA. We will continue to monitor the patient and possible SNF on Saturday. Job#: [id number]
--- NOTE | 2018-08-16 11:08 | NUR ---
Rec'd order for SNF. Read [facility] Classer note, and Deedee has already made arrangements with [facility] on 08/11. Sent them PASRR and has RTF at nurses station. [facility] [address] [place], [place] [address]
[2018-08-16] MEDS: BIMATOPROST(OPTH) 2.5 ML BOTTLE OP SCH ×2 (19:20→21:02)
[2018-08-17] VITALS (8 sets, daily range): BP systolic 135–152; BP diastolic 68–82
[2018-08-17 07:05] LABS: BLOOD UREA NITROGEN 8 mg/dL (7-26); BUN/CREATININE RATIO 11 (6-25); CALCIUM 8.4 mg/dL (8.4-10.2); CARBON DIOXIDE 16 mmol/L (22-29); CHLORIDE 110 mmol/L (98-107); CREATININE, SERUM 0.76 mg/dL (0.57-1.11); EST GLOMERULAR FILTRATION RATE > 60 ML/MIN (60-); GLUCOSE 97 mg/dL (74-118); SODIUM 136 mmol/L (136-145)
[2018-08-17] MEDS: BRINZOLAMIDE 1% OPTH SUSP 10 ML BTL OP SCH (08:13)
[2018-08-17] MEDS: PANTOPRAZOLE SOD 40 MG TABEC PO SCH (08:13)
[2018-08-17] MEDS: DORZOLAMIDE HCL (OPTH) 10 ML BOTTLE OP SCH ×2 (08:13→17:26)
[2018-08-17] MEDS: VYZULTA OP SCH (08:13)
[2018-08-17] MEDS: DORZOLAMIDE/TIMOLOL/PF 1 EACH DROPERETTE OP SCH ×2 (08:13→17:26)
[2018-08-17] MEDS: CEFTRIAXONE SOD 1 GM/NS 50 ML 50 ML IV SCH (08:13)
[2018-08-17] MEDS: DRONABINOL 2.5MG PO SCH ×2 (08:13→17:26)
[2018-08-17] MEDS: BUMETANIDE 1 MG TAB PO SCH (08:13)
[2018-08-17] MEDS: POTASSIUM CHLORIDE 20 MEQ TAB CR PO SCH (08:14)
[2018-08-17] MEDS: OXYBUTYNIN CHLORIDE 5 MG TAB PO SCH (08:14)
[2018-08-17] MEDS: LOSARTAN POTASSIUM 25 MG TAB PO SCH (08:14)
[2018-08-17] MEDS: BALSAM PERU/CASTOR OIL 60 GM OINT...G. TP SCH ×2 (08:14→17:28)
[2018-08-17] MEDS: APIXABAN 5 MG TABLET PO SCH ×2 (08:14→17:26)
--- NOTE | 2018-08-17 09:09 | Progress Note ---
DATE: August 17, 2018 SUBJECTIVE: Patient is currently sleepy, arousable, goes right back to sleep. Patient again has no desire to eat. She is on IV fluids at 50 mL an hour of D5 half normal saline. OBJECTIVE VITAL SIGNS: Temperature is 97.6, blood pressure is 144/79, respirations of 20, pulse of 87. HEENT: Normocephalic, atraumatic. Patient is legally blind. CVS: S1, S2 regular. ABDOMEN: Nontender, nondistended. EXTREMITIES: No clubbing, no cyanosis, no edema. LABORATORY VALUES: Chemistries show a sodium of 136, BUN of 18, creatinine of 0.7, and potassium was at 4. MICROBIOLOGY: Klebsiella pneumoniae noted. ASSESSMENT 1. Urosepsis. Continue antibiotics. 2. Cachexia. Patient is on Marinol. 3. Pulmonary embolism, has been anticoagulated. 4. Carotid artery stenosis. Will decide with family. 5. Hypertension. Will continue monitoring and give medication. 6. Disposition. Patient does not want surgery and POA is not denoted. We will transfer to [facility] when a room is available on anticoagulation. Further recommendations per clinical course. The prognosis of the patient is very grim and we will continue monitoring at [facility]. Job#: [id number] Brant
[2018-08-17] MEDS: DEXTROSE 5%/0.45% SOD CHL 1,000 ML IV SCH (11:57)
[2018-08-18 00:05] VITALS: BP 147/70
[2018-08-18 04:20] VITALS: BP 136/75
--- NOTE | 2018-08-18 07:05 | Progress Note ---
DATE: August 18, 2018 Patient is here for acute mental status changes and for pulmonary embolism, and also for previously noted carotid artery. Currently, the patient is stable. Not eating. No shortness of breath. No chest pain reported in location. The patient is legally blind. The patient also has no POA, and has been visited by family members who are [id number], who is primarily visiting her. No other visitors. PHYSICAL EXAMINATION VITALS: The patient's temperature is 97, respirations of 21, blood pressure is 136/75, pulse of 91, pulse ox 99% on room air. GENERAL: Alert and oriented times 3. HEENT: Normocephalic and atraumatic. The patient is blind. CV: S1 and S2 irregular. ABDOMEN: Nontender and nondistended. EXTREMITIES: No clubbing. No cyanosis. No edema. LABORATORY VALUES: The last potassium was 4. Otherwise, normal. MICROBIOLOGY: Klebsiella on urine culture. ASSESSMENT 1. Urosepsis: Continue with antibiotics. 2. Cachexia: The patient is on Marinol. Will continue monitoring her intake. 3. Pulmonary embolism and carotid artery stenosis: Will continue the patient on Eliquis. 4. Hypertension: Will continue to monitor her blood sugars. The patient is on 50 mL of normal saline for nutrition. She has passed her barium swallow evaluation. 5. Disposition: The patient will need SNF. Given her age and no POA, a decision not to do carotid endarterectomy has been made. Will continue monitoring the patient in a skilled nursing. Further recommendations per clinical course. Encourage feeding by staff. Job#: [id number] ELLIE
[2018-08-18] MEDS: DRONABINOL 2.5MG PO SCH (07:30)
[2018-08-18] MEDS: PANTOPRAZOLE SOD 40 MG TABEC PO SCH (07:30)
[2018-08-18 08:00] VITALS: BP 162/77
[2018-08-18] MEDS: POTASSIUM CHLORIDE 20 MEQ TAB CR PO SCH (09:00)
[2018-08-18] MEDS: BUMETANIDE 1 MG TAB PO SCH (09:00)
[2018-08-18] MEDS: LOSARTAN POTASSIUM 25 MG TAB PO SCH (09:00)
[2018-08-18] MEDS: OXYBUTYNIN CHLORIDE 5 MG TAB PO SCH (09:00)
[2018-08-18] MEDS: VYZULTA OP SCH (09:00)
--- NOTE | 2018-08-18 09:30 | NUR ---
PT ACCEPTED TO [facility] SENT UPDATED CLINICALS AND FILLED OUT PASRR RTF AND DISCHARGE SUMMARY PUT REQUIRED ON CHART AND GAVE RTF TO NURSE TO CALL REPORT. PT TO GO TO ROM [address] RIVERA
[2018-08-18] MEDS: DORZOLAMIDE/TIMOLOL/PF 1 EACH DROPERETTE OP SCH (09:58)
[2018-08-18] MEDS: APIXABAN 5 MG TABLET PO SCH (09:58)
[2018-08-18] MEDS: CEFTRIAXONE SOD 1 GM/NS 50 ML 50 ML IV SCH (09:58)
[2018-08-18] MEDS: BRINZOLAMIDE 1% OPTH SUSP 10 ML BTL OP SCH (09:58)
[2018-08-18] MEDS: DORZOLAMIDE HCL (OPTH) 10 ML BOTTLE OP SCH (09:58)
[2018-08-18 12:00] VITALS: BP 128/81
--- NOTE | 2018-08-18 13:24 | NUR ---
PT DISCHARGED TO SNF, [facility], ALL D/C PAPERS SENT WITH PT. TRANSPORTED VIA STRECHER BY EMS.SHE IS ALERT X 1.NO RESPIRATORY PROBLEMS NOTED AT THIS TIME.
--- NOTE | 2018-10-11 02:40 | Discharge Summary ---
HOSPITAL COURSE: This patient came in with extreme amount of weakness, multiple falls, and questionable CVA, found to have AFib, hypertension, and pulmonary embolism. The patient was started on antibiotics for possible pneumonia. The patient also continued on enoxaparin subcutaneously for PE and metoprolol 2.5 mg as needed was started for atrial fibrillation. The patient also was put on Bumex for volume overload. The patient was continued in care. A consult with Dr. Pena was also done while the patient was here. Patient also had urinary tract infection, which we started the patient on Rocephin for. Urine cultures were followed. The patient was legally blind, also with history of hypertension. We continued to monitor the patient. Rate control was achieved, and the patient was put on Eliquis 2.5 mg twice a day. Physical therapy was ordered. The patient was not very cooperative, and with this in mind, the patient had SNF consult. The patient's carotid artery also showed stenosis, but with her legally blind condition and also with her deteriorating condition, no intervention was needed at that point of time. The patient was then discharged to SNF. Patient's further care will be in a SNF unit and also further recommendation as per clinical course. The patient was put on Eliquis 2.5 mg and is to be continued on 2.5 mg twice a day. Her carotid Doppler did show 50% possible blockage in the bulb and echocardiogram showed LVH. Estimated EF was 55%-60% and the patient's family made aware of this and she was discharged to SNF for further evaluation and treatment. ELIZABETH REYNOSO MD Job#: [id number] MUNIRA
== END 2018-08-18 13:17 | DRG 871 ==
LOC: ER 16:48 → ERHOLD 18:19 → IMCU 23:00 → OBSVTOIN 08-04 14:26 → MED/SURG3 08-05 14:43
PROVIDERS: ADMIT Family Medicine; ATTEND Family Medicine
DX: A41.9 Sepsis, unspecified organism (principal); I26.99 Other pulmonary embolism without acute cor pulmonale; G92 Toxic encephalopathy; N17.9 Acute kidney failure, unspecified; N39.0 Urinary tract infection, site not specified; E44.0 Moderate protein-calorie malnutrition; R41.82 Altered mental status, unspecified; Z91.81 History of falling; I48.0 Paroxysmal atrial fibrillation; H54.8 Legal blindness, as defined in USA; R53.81 Other malaise; H40.9 Unspecified glaucoma; G89.4 Chronic pain syndrome; B96.1 Klebsiella pneumoniae [K. pneumoniae] as the cause of diseases classified elsewhere; Z86.73 Personal history of transient ischemic attack (TIA), and cerebral infarction without residual deficits; F03.90 Unspecified dementia, unspecified severity, without behavioral disturbance, psychotic disturbance, mood disturbance, and anxiety; I65.29 Occlusion and stenosis of unspecified carotid artery; N18.3 Chronic kidney disease, stage 3 (moderate); D64.9 Anemia, unspecified; K21.9 Gastro-esophageal reflux disease without esophagitis; Z68.22 Body mass index [BMI] 22.0-22.9, adult
CPT/HCPCS: 36415; 70450; 70498; 71260; 72170; 74230; 80048; 80053; 82330; 82550; 82553; 82948; 84484; 85025; 87086; 87186; 93005; 93306; 93880; 96361; 97139; 99284; G0378; J0360; J0696; J1160; J1650; J2405; J3480; J7040; Q9967